=== PATIENT | male | born 1965 | race Caucasian/White ===

== ENCOUNTER 2020-05-31 07:18 | Outpatient (CLI) | payer MEDICARE, SELFPAY ==
[2020-05-31 08:01] LABS: Cholesterol 227 mg/dL (0-200); HDL Direct 48 mg/dL; Triglycerides 457 mg/dL (<150)
[2020-05-31 08:12] LABS: LDL Cholesterol Direct 100 mg/dL
== END 2020-05-31 07:19 | disposition home or self-care (01) ==
PROVIDERS: PCP Family Medicine
DX: E78.5 Hyperlipidemia, unspecified (principal)
CPT/HCPCS: 36415; 80061

== ENCOUNTER 2020-10-29 11:50 | Outpatient (CLI) | payer MEDICARE, SELFPAY ==
--- NOTE | ~2020-10-29 | XR_ITS ---
EXAMINATION: XR chest 2V DATE: 10/29/2020 12:43 INDICATION: Congestive heart failure. TECHNIQUE: Frontal and lateral views of the chest were obtained. COMPARISON: Chest 2 views 12/13/2016, CT abdomen and pelvis 06/10/2016 FINDINGS: There is mild scarring at the lung apices. No pneumonia, pleural effusion, or pneumothorax. The heart size is normal. There is a left chest pacer/defibrillator with leads in right atrium, righ t ventricle, and coronary sinus. There is an old healed left rib fracture. IMPRESSION: 1. Mild scarring at the lung apices. Reviewed, dictated and finalized at location B. 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
[2020-10-29 12:43] LABS: Basophils Absolute Auto 0.1 K/mm3 (0.0-0.1); Basophils Percent Auto 0.5 % (0.2-1.2); Eosinophils Absolute Auto 0.4 K/mm3 (0-0.3); Hematocrit 41.1 % (42.0-52.0); Hemoglobin 14.2 g/dL (14.0-18.0); Immature Granulocyte Absolute 0.05 K/mm3 (0.00-0.031); Immature Granulocyte Percent A 0.5 % (0-0.5); Lymphocytes Absolute Auto 2.15 K/mm3 (0.9-3.2); Lymphocytes Percent Auto 19.4 % (18.3-44.2); Mean Corpuscular HGB Conc 34.5 g/dl (32-36); Mean Corpuscular Hemoglobin 33.2 pg (26-34); Mean Platelet Volume 10.2 fl (7.4-10.4); Monocytes Absolute Auto 0.7 K/mm3 (0.1-0.6); Monocytes Percent Auto 6.3 % (2.6-8.5); Neutrophils Absolute Auto 7.7 K/mm3 (1.3-6.7); Neutrophils Percent Auto 69.3 % (45.5-73.1); Platelet Count Result 289 k/mm3 (150-375); Red Blood Count 4.28 M/mm3 (4.6-6.20); White Blood Count 11.1 K/mm3 (4.5-10.0)
[2020-10-29 12:45] LABS: Add Urine Microscopic? NO; Appearance Urine Clear (Clear); Bilirubin Urine Negative (Negative); Blood Urine Negative (Negative); Color Urine Yellow (Yellow); Glucose Urine UA Negative (Negative); Ketones Urine Negative (Negative); Leukocyte Esterase Ur Negative LEU/UL (Negative); Nitrate Urine Negative (Negative); Protein Urine Negative (Negative); Specific Grav Ur 1.019 (1.001-1.035); Urobilinogen Urine Negative mg/dL (<2.0)
[2020-10-29 12:53] LABS: INR 0.8; Partial Thromboplastin Time 24.6 SECONDS (22.3-36.8); Prothrombin Time 12.1 Seconds (11.1-14.7)
[2020-10-29 13:08] LABS: Alanine Aminotransferase 26 U/L (4-50); Albumin Level 3.9 g/dL (3.5-5.1); Alkaline Phosphatase 62 U/L (38-126); Anion Gap 7 mmol/L (8-16); Aspartate Amino Transferase 30 U/L (17-59); Bilirubin,Total 0.3 mg/dL (0.2-1.3); Blood Urea Nitrogen 13 mg/dL (9-20); Calcium 9.3 mg/dL (8.4-10.2); Carbon Dioxide 27 mmol/L (22-30); Chloride 102 mmol/L (98-107); Estimated Glomerular Filt Rate > 60; Glucose 109 mg/dL (75-110); Potassium 4.7 mmol/L (3.4-5.0); Sodium 136 mmol/L (137-145)
== END 2020-10-29 11:51 | disposition home or self-care (01) ==
PROVIDERS: PCP Family Medicine
DX: I42.9 Cardiomyopathy, unspecified (principal); I50.9 Heart failure, unspecified; Z95.810 Presence of automatic (implantable) cardiac defibrillator; E78.5 Hyperlipidemia, unspecified; R53.83 Other fatigue; K64.9 Unspecified hemorrhoids; R06.02 Shortness of breath; F17.200 Nicotine dependence, unspecified, uncomplicated
CPT/HCPCS: 36415; 71046; 80053; 81003; 85025; 85610; 85730

== ENCOUNTER 2020-10-31 08:38 | Outpatient (CLI) | payer MEDICARE, SELFPAY ==
--- NOTE | 2020-10-31 | ECHO_ITS ---
Patient Info Name: Iona Jackson Age: 55 years : 1965 Gender: Male Ht: 69 in Wt: 195 lbs BSA: 2.10 m2 HR: 70 bpm BP: 116 / 69 mmHg Heart Rhythm: Sinus Rhythm Exam Date: 10/31/2020 9:11 AM Exam Location: [facility] Patient Status: Outpatient Admit Date: 10/31/2020 Staff Ordering Physician: PHYSICIAN NOT ON STAFF, NONSTAFF [employer] Staff: Wilfredo Carpio, BRI, RT Attending Provider: PHYSICIAN NOT ON STAFF, NONSTAFF Exam Type: CA echo doppler color flow Study Info Indications I50.9 - Heart failure, unspecified Complete two-dimensional, color flow and Doppler transthoracic echocardiogram is performed. Strain analysis performed. Summary 1. Complete two-dimensional, color flow and Doppler transthoracic echocardiogram is performed. 2. Normal left ventricular systolic function, with no segmental wall motion abnormalities. Estimated ejection fraction visually is 55-60%. There is mild concentric left ventricular hypertrophy and grade 2 diastolic dysfunction present. Global longitudinal strain was mildly diminished at -15% suggesting a degree of systolic dysfunction. 3. Probable pacemaker in right ventricle. In addition there is a calcified structure, probably a calcified moderator band, in the right ventricle which apparently has previously been noted. 4. No significant valve disease. 5. Normal sinus rhythm. Left Ventricle Left ventricular chamber dimension is normal. Left ventricular systolic function is normal, estimated at 55-60%. There is mildly increased left ventricular wall thickness. Left ventricular septal wall motion is normal. The left ventricular diastolic function is grade II diastolic dysfunction. Global longitudinal strain is mildly elevated at 15 %. Right Ventricle Right ventricular chamber dimension is normal. Right ventricular systolic function is normal. Linear artifact in right ventricle suggestive of catheter(s), pacemaker lead(s), or ICD lead(s). Left Atria Left atrial chamber dimension is normal. Right Atria Right atrial chamber dimension is normal. Aortic Valve The aortic valve is trileaflet. There is no aortic valve sclerosis. There is no aortic valve stenosis. There is no aortic valve regurgitation. Pulmonic Valve The pulmonic valve is normal. There is no pulmonic valve stenosis. There is no pulmonic regurgitation. Mitral Valve The mitral valve has normal leaflets. There is no mitral valve stenosis. There is trace mitral valve regurgitation. Tricuspid Valve The tricuspid valve leaflets are normal. There is no significant tricuspid valve stenosis. There is trace tricuspid valve regurgitation. No pulmonary hypertension, estimated pulmonary arterial systolic pressure is 28 mmHg. Pericardium/Pleural The pericardium appears normal. There is no pericardial effusion. Inferior Vena Cava Normal inferior vena cava with >50% collapse upon inspiration consistent with Empty right atrial pressure, 5 mmHg. Aorta The aortic root size at the sinus of Valsalva is normal. The prox ascending aorta size is normal. Left Ventricular Outflow Tract Name Value Normal LVOT 2D LVOT Diameter 2.0 cm LVOT Doppler ---------
== END 2020-10-31 08:39 | disposition home or self-care (01) ==
LOC: ANHCARD 08:45
PROVIDERS: PCP Family Medicine
DX: I50.9 Heart failure, unspecified (principal); I42.9 Cardiomyopathy, unspecified
CPT/HCPCS: 93306

== ENCOUNTER 2021-01-13 17:37 | Outpatient (CLI) | payer MEDICARE, SELFPAY ==
--- NOTE | ~2021-01-13 | XR_ITS ---
EXAMINATION: XR chest 2V DATE: 01/13/2021 18:02 INDICATION: Shortness of breath. TECHNIQUE: Frontal and lateral views of the chest were obtained. COMPARISON: Chest 2 views 10/29/2020, CT abdomen and pelvis 06/10/2016 FINDINGS: There is mild scarring at the lung apices. No pleural effusion or pneumothorax. The heart s ize is normal. There is a left chest pacer with leads in right atrium, right ventricle, and coronary sinus. There is an old healed left rib fracture. IMPRESSION: 1. Mild scarring at the lung apices. Reviewed, dictated and finalized at location A. [employer]ER [employer]ATING
== END 2021-01-13 17:38 | disposition home or self-care (01) ==
LOC: ANHIMG 17:50
PROVIDERS: PCP Family Medicine
DX: I42.9 Cardiomyopathy, unspecified (principal); Z95.810 Presence of automatic (implantable) cardiac defibrillator
CPT/HCPCS: 71046

== ENCOUNTER 2021-03-19 14:34 | Outpatient (CLI) | payer MEDICARE, SELFPAY ==
--- NOTE | ~2021-03-19 | CT_ITS ---
EXAMINATION: CT ankle RT wo con DATE: 03/19/2021 14:59 INDICATION: Right ankle arthrosis presenting with medial right ankle pain TECHNIQUE: High resolution computed tomography (CT) of the right ankle was performed without intraven ous contrast. Additional sagittal and coronal reconstructions were performed. Automated exposure cont rol and iterative reconstruction technique were employed. The dose-length product was 304.05 mGy-cm. COMPARISON: 09/24/2015 FINDINGS: Old healed fractures of the medial and lateral malleoli with fixation screw at the medial malleolus a nd residual lucent screw tracks at the lateral malleolus. There is osseous fusion between the distal tibia and distal fibula in the region of the anterior inferior tibiofibular ligaments. No acute fract ure. Interval progression of severe tibiotalar osteoarthritis with extensive cartilage loss resulting in severe joint space narrowing with emplaces essentially [id number] apposition anteromedially and with prominent marginal osteophytes. Mild osteoarthritis at multiple joints in the mid and hindfoot relatively sparing the subtalar joint. Subarticular cystic change at both sides of the articulation b etween the anterior process of the calcaneus and the navicula. There is prominent fusiform thickening of the tibialis posterior tendon consistent with tendinopathy. There is linear extension of a region of central decreased attenuation within the tendon suggesting partial tear. No evident joint effusio ns. Small amount of heterotopic ossification along the anterior capsule of the tibiotalar joint. IMPRESSION: 1. Severe tibiotalar osteoarthritis likely secondary to old healed medial and lateral malleolar fract ures and ankylosis across the distal tibia and fibula. 2. Tibialis posterior tendinopathy with longitudinal extension of central decreased attenuation sugge sting partial tear. Reviewed, dictated and finalized at location A. IMPRESSION: 1. Severe tibiotalar osteoarthritis likely secondary to old healed medial and l ateral malleolar fractures and ankylosis across the distal tibia and fibula. 2. Tibialis posterior tendinopathy with longitudinal extension of central decre ased attenuation suggesting partial tear.
== END 2021-03-19 14:35 | disposition home or self-care (01) ==
PROVIDERS: PCP Family Medicine; Visit Provider Podiatrist Foot & Ankle Surgery
DX: M19.071 Primary osteoarthritis, right ankle and foot (principal); M76.821 Posterior tibial tendinitis, right leg
CPT/HCPCS: 73700

== ENCOUNTER → 2021-04-01 01:05 | Outpatient (CLI) | payer MEDICARE, SELFPAY ==
[2021-04-01 18:55] LABS: SARS-CoV-2 RNA PCR Negative
== END ==
PROVIDERS: PCP Family Medicine; Visit Provider Podiatrist Foot & Ankle Surgery
DX: Z01.812 Encounter for preprocedural laboratory examination (principal); Z20.822 Contact with and (suspected) exposure to COVID-19
CPT/HCPCS: C9803; U0003; U0005

== ENCOUNTER 2021-04-01 08:08 | Outpatient (CLI) | payer MEDICARE, SELFPAY ==
--- NOTE | 2021-04-01 08:45 | ECG_ITS ---
Measurements Intervals [place] Rate: 75 P: 16 ID: 174 QRS: 5 QRSD: 134 T: 68 QT: 405 QTc: 455 Interpretive Statements ATRIAL SENSE- ELECTRONIC VENTRICULAR PACEMAKER BASELINE ARTIFACT- I, II, III, AVR, AVL, AVF NO FURTHER INTERPRETATION IS POSSIBLE ATYPICAL ECG Electronically Signed On 04-01-2021 8:50:36 CDT by Jermain Madrid D.O.
[2021-04-01 09:34] LABS: Anion Gap 4 mmol/L (8-16); Blood Urea Nitrogen 15 mg/dL (9-20); Calcium 9.9 mg/dL (8.4-10.2); Carbon Dioxide 29 mmol/L (22-30); Chloride 102 mmol/L (98-107); Estimated Glomerular Filt Rate > 60; Glucose 105 mg/dL (75-110); Potassium 4.2 mmol/L (3.4-5.0); Sodium 135 mmol/L (137-145)
== END 2021-04-01 08:09 | disposition home or self-care (01) ==
LOC: ANHSURGERY 08:12
PROVIDERS: Anesthesiology; PCP Family Medicine; Visit Provider Podiatrist Foot & Ankle Surgery
DX: Z01.818 Encounter for other preprocedural examination (principal); Z51.81 Encounter for therapeutic drug level monitoring; Z79.899 Other long term (current) drug therapy; E78.2 Mixed hyperlipidemia; F17.210 Nicotine dependence, cigarettes, uncomplicated
CPT/HCPCS: 36415; 80048; 93005

== ENCOUNTER 2021-04-04 05:50 | Day surgery (SDC) | payer MEDICARE, MEDICAID, SELFPAY ==
[2021-03-26 14:06] VITALS: BMI 27.6
--- NOTE | 2021-04-03 12:04 | WPDANESEPPF ---
Anes - Initial Pre Proc Eval Procedure: Operation Date: 04/04/21 10:30 Proposed Procedures p Removal Hardware Right Ankle - Elier Ayala JR, MD Date/Time: 04/03/21 12:04 Surgeon: Elier Ayala JR, MD Pre Op Diagnosis: painful hardware right ankle Patient Data Age: 55 Gender: M Height: 1.77 m Weight: 86 kg Allergies Allergy/AdvReac Type Severity Reaction Status Date / Time No Known Allergies Allergy Unknown Verified 04/04/21 08:53 Home Medications Medication Instructions Recorded Confirmed Type fexofenadine 180 mg tablet 180 mg PO DAILY 11/19/19 04/04/21 History furosemide 20 mg tablet 20 mg PO EVERY OTHER DAY 11/19/19 04/04/21 History spironolactone 25 mg tablet 25 mg PO DAILY 11/19/19 04/04/21 History naloxone 4 mg/actuation nasal spray 4 mg NASAL Q2M PRN #2 each 04/29/20 04/04/21 Rx hydrocodone 10 mg-acetaminophen 1 tablet PO Q8H PRN #90 tablet 03/13/21 04/04/21 Rx 325 mg tablet alprazolam 1 mg tablet 1 mg PO TID PRN #90 tablet 03/21/21 04/04/21 Rx aspirin [Adult Aspirin] 81 mg PO DAILY 03/26/21 04/04/21 History atorvastatin 80 mg PO HS 03/26/21 04/04/21 History varenicline 0.5 mg (11)-1 mg (42) See Rx Instructions PO PER PKG DIR 03/31/21 Rx tablets in a dose pack #53 ea Patient hx anesthesia problems: none Family hx anesthesia problems: none PMFSH Past Medical History Medical History (Updated 04/03/21 @ 12:05 by David Fields DO) Anemia Anxiety disorder, unspecified BMI 28.0-28.9,adult BMI 29.0-29.9,adult Cardiomyopathy CHF (congestive heart failure) Deviated septum Idiopathic gout Mixed hyperlipidemia Osteoarthritis of ankle, right Pacemaker Tobacco abuse Surgical History Surgical History (Updated 04/03/21 @ 12:05 by David Fields DO) History of appendectomy Social History Social History Smoking packs per day: 1 Smoking cigarettes per day: 20.0 Years smoked: 40 Smoking pack-years: 40.00 Smoking status: Current every day smoker Tobacco type: cigarettes Alcohol intake: current Drinks per week: 4 Substance use: never Substance use type: does not use Living arrangements: with family Spiritual care concerns: No Anes - Eval Final PreProcedure Day of Procedure 04/03/21 12:04 Patient weight: overweight Heart: regular rate and rhythm Lungs: clear to auscultation and normal air movement Airway: Mallampati scale class II Neurological: alert and oriented Last oral intake: >/= 8 hours ASA classification: III Emergent: no Anesthetic plan: proceed Anesthesia type and monitoring: general GIVS and standard monitoring Informed Consent: The patient's anesthetic plan and its attendant risks and benefits were discussed with the patient/family/POA. Questions were solicited and answers provided to the satisfaction of the patient/family/POA.
--- NOTE | ~2021-04-04 | XR_ITS ---
EXAMINATION: XR surgery orthopedic DATE: 04/04/2021 12:21 INDICATION: Right ankle arthrosis presenting for orthopedic instrumentation removal and cortisone inj ection. TECHNIQUE: 4 fluoroscopic images of the right ankle were obtained during procedure performed by Dr. Leidy prescott. Radiologist was not present for the imaging or procedure. The amount of fluoroscopy time use d during this procedure was 0.5 minutes. COMPARISON: CT dated 03/19/2021 FINDINGS: Initial image redemonstrates old healed fractures of the distal right tibia and fibula with lag screw at the medial malleolus. The tip of a forceps likely for marking projects over the head of the screw . Severe tibiotalar osteoarthritis. Subsequent images demonstrate first removal of the screw and subs equently a needle advanced via anterior approach into the tibiotalar joint space for reported cortiso ne injection. There appears to be interval widening of the joint space on the final image likely due to the injection. IMPRESSION: 1. Fluoroscopy utilized during removal of a medial malleolar lag screw fixation and for reported tibi otalar joint cortisone injection. See procedure note for further detail. Reviewed, dictated and finalized at location A. IMPRESSION: 1. Fluoroscopy utilized during removal of a medial malleolar lag screw fixation and for reported tibiotalar joint cortisone injection. See procedure note for further detail.
--- NOTE | 2021-04-04 07:23 | WPDHPUPDATE1 ---
History and Physical Update Update Date/Time: 04/04/21 07:23 History and Physical has been reviewed, including an updated exam of the patient. There are NO changes in the patient's condition. Risks, benefits, and alternatives have been discussed and questions answered. Patient agrees to proceed with procedure.
[2021-04-04] MEDS: LACTATED RINGERS 1,000 ML 30 ML IV CONT (09:25)
[2021-04-04 09:36] VITALS: BP 129/68; PULSE 83; TEMP 36.9; O2SAT 100
[2021-04-04] MEDS: ceFAZolin 2 GM/D5W 50 ML 2 GM/50 ML BAG IVPB (11:33)
[2021-04-04] MEDS: LIDOCAINE HCL 2% PF INJ 5 ML VIAL 10 ML INFILTRATE (12:00)
[2021-04-04] MEDS: BUPIVACAINE HCL 0.5% PF 30 ML VIAL INFILTRATE (12:01)
[2021-04-04] MEDS: TRIAMCINOLONE ACET INJ 40 MG/ML VIAL IM (12:04)
--- NOTE | 2021-04-04 12:09 | SUR.OPER ---
PT REQUESTED TO TAKE SCREW HOME. APPROVED REQUEST. SENDING BUSINESS ETHICS PROFESSOR TO CENTRAL PROCESSING TO BE STERILIZED FROM ROOM BY MUNA ATWOOD.
[2021-04-04 12:21] VITALS: BP 156/83; PULSE 75; RESP 18; O2SAT 99
--- NOTE | 2021-04-04 12:41 | PM.PROC ---
Procedure Note - Detailed Date of procedure: 04/04/21 Pre-op diagnosis: painful hardware right ankle 1. Painful hardware right ankle 2. Painful arthritis right ankle joint Post-op diagnosis: same Procedure performed: 1. Removal of deep orthopedic hardware right ankle 2. Fluoroscopic guided cortisone injection right ankle Anesthesia: MAC and local Surgeon: Elier Ayala JR, DPM Estimated blood loss (mL): 1 Drains: No Packing: No Pathology: none sent Complications: No immediate complications Condition: stable Disposition: same day Findings: Under mild sedation, the patient was brought in to the operating room, placed on the operating table in the supine position. A pneumatic calf tourniquet was placed about the patient's right leg. Following monitored anesthesia care, local anesthesia was obtained about the foot utilizing 20 mL of a 1:1 mixture of 2% Lidocaine plain and 0.5% Marcaine plain, just proximal to the medial malleolus. The foot was then scrubbed, prepped, and draped in the usual aseptic manner. An Esmarch bandage was then used to exsanguinate the patient's foot and the pneumatic calf tourniquet was then inflated. An incision was made along the medial aspect of the distal tibial just proximal to the tip of the medial malleolus. Fluoroscopy was used to identify the screw head. Dissection was continued to the subcutaneous tissues all bleeders were cauterized as necessary. A periosteal incision was made and the screw head was visualized. It was noted to be a cruciform head screw, it was removed in toto and placed on the back table. Fluoroscopy was used to prove complete screw removal. The wound site was flushed with sterile saline. Next, the skin was reapproximated and coapted utilizing 4-0 Prolene in a Horizontal mattress suture fashion technique. Next, I utilized live fluoroscopy to guide a 25 gauge needle along the medial aspect of the right ankle joint, just medial to the tibialis anterior tendon. Once I was able to enter the joint, I administered an intraarticular cortisone injection consisting of 2cc of Kenalog 40 and 1cc of Dexamethasone Phosphate 4mg/mL. I did take and print a fluoroscopic image to demonstrate the position of the needle within the ankle joint. Upon completion of the procedure, the incision was dressed with Adaptic, 4x4s, Kerlix, and Coban. The pneumatic calf tourniquet was then deflated and a prompt hyperemic response was noted to all digits of the foot. The surgical shoe was then applied. The patient did very well with the procedure and the anesthesia. He was transferred to the recovery room with vital signs stable and vascular status intact to all toes of the foot. Following a period of postoperative monitoring, the patient will be discharged home on the following written and oral postoperative instructions: 1. The patient should keep the dressing clean, dry, and intact. Use a cast protector bag with showers. 2. The patient will be protected weightbearing with CAM boot. 3. Patient should ice and elevate the affected lower extremity while at rest. 4. The patient is to contact Dr. Ayala for all postop care and if any problems arise. 5. Prescriptions were written for Percocet 5/325 dispensed 40 to be taken 1 p.o. q.4-6 hours as needed for severe pain.
[2021-04-04 12:50] VITALS: BP 155/93; PULSE 76; O2SAT 95
[2021-04-04 13:20] VITALS: BP 153/67; PULSE 70
[2021-04-04] MEDS: oxyCODONE HCL (*CRX) 5 MG TAB IR PO (13:23)
[2021-04-04 13:40] VITALS: BP 170/86; PULSE 76
--- NOTE | 2021-04-04 14:43 | SUR.PHASEII ---
Patient had an ankle brace he purchased off [employer]. He said it wouldn't fit over the dressing so he wasn't wearing it. RN encouraged patient to wear a CAM boot like stated in the discharge instructions.
== END 2021-04-04 13:53 | disposition home or self-care (01) ==
PROVIDERS: PCP Family Medicine; Visit Provider Podiatrist Foot & Ankle Surgery
PROC: (CPT 20680; principal; 2021-04-04 10:30)
DX: T84.84XA Pain due to internal orthopedic prosthetic devices, implants and grafts, initial encounter (principal); M19.071 Primary osteoarthritis, right ankle and foot; Z87.81 Personal history of (healed) traumatic fracture; F17.210 Nicotine dependence, cigarettes, uncomplicated; I42.9 Cardiomyopathy, unspecified; I50.9 Heart failure, unspecified; E78.2 Mixed hyperlipidemia; M10.00 Idiopathic gout, unspecified site; Z95.0 Presence of cardiac pacemaker; D64.9 Anemia, unspecified; D41.9 Neoplasm of uncertain behavior of unspecified urinary organ; Z79.82 Long term (current) use of aspirin; Y83.8 Other surgical procedures as the cause of abnormal reaction of the patient, or of later complication, without mention of misadventure at the time of the procedure
CPT/HCPCS: 20680; 20605; 36415; 80048; 93005; A9270; C9803; J0690; J1100; J2250; J2405; J2704; J3010; J3301; J7120; U0003; U0005

== ENCOUNTER 2022-01-16 09:39 | Outpatient (CLI) | payer MEDICARE, MEDICAID, SELFPAY ==
--- NOTE | 2022-01-16 | ECHO_ITS ---
Patient Info Name: Iona Jackson Age: 56 years : 1965 Gender: Male Ht: 70 in Wt: 197 lbs BSA: 2.12 m2 HR: 73 bpm BP: 135 / 80 mmHg Technical Quality: Fair Exam Date: 01/16/2022 9:57 AM Exam Location: [facility] Patient Status: Outpatient Admit Date: 01/16/2022 Staff Ordering Physician: JACOBO BECERRA Armored Vehicle Officer: Alisa Wei RDCS Attending Provider: JACOBO BECERRA Exam Type: CA echo doppler color flow Study Info Indications F17.200 - Nicotine dependence, unspecified, uncomplicated I25.10 - Atherosclerotic heart disease of [place] coronary artery without angina pectoris I50.9 - Heart failure, unspecified E78.5 - Hyperlipidemia, unspecified I42.9 - Cardiomyopathy, unspecified R53.83 - Other fatigue R06.02 - Shortness of breath Complete two-dimensional, color flow and Doppler transthoracic echocardiogram is performed. Summary 1. Complete two-dimensional, color flow and Doppler transthoracic echocardiogram is performed. 2. Left ventricular chamber dimension is normal. 3. Left ventricular systolic function is normal, estimated at 60-65%. 4. There is mildly increased left ventricular wall thickness. 5. The left ventricular diastolic function is normal. 6. Global longitudinal strain is abnormal at -11.4%. 7. No pulmonary hypertension, estimated pulmonary arterial systolic pressure is 32 mmHg. Left Ventricle Tissue doppler is not performed. Global longitudinal strain is abnormal at -11.4%. Left ventricular chamber dimension is normal. Left ventricular systolic function is normal, estimated at 60-65%. There is mildly increased left ventricular wall thickness. The left ventricular diastolic function is normal. Right Ventricle Right ventricular chamber dimension is normal. Right ventricular systolic function is normal. Left Atria Left atrial chamber dimension is normal. Right Atria Right atrial chamber dimension is normal. Aortic Valve The aortic valve is trileaflet. There is no aortic valve stenosis. There is no aortic valve regurgitation. Pulmonic Valve There is no pulmonic regurgitation. Mitral Valve There is no mitral valve stenosis. There is no mitral valve regurgitation. Tricuspid Valve There is no tricuspid valve regurgitation. No pulmonary hypertension, estimated pulmonary arterial systolic pressure is 32 mmHg. Pericardium/Pleural There is no pericardial effusion. Inferior Vena Cava Normal inferior vena cava with >50% collapse upon inspiration consistent with normal right atrial pressure, 5 mmHg. Aorta The aortic root size at the sinus of Valsalva is normal. Left Ventricular Outflow Tract Name Value Normal LVOT 2D LVOT Diameter 2.0 cm LVOT Doppler LVOT Peak Gradient 4 mmHg LVOT Mean Gradient 2 mmHg LVOT VTI 20 cm LVOT VTI/AV VTI Ratio 0.8 LVOT Stroke Volume 64 ml LVOT CO 4.4 l/min LVOT CI 2.1 l/min/m2
== END 2022-01-16 09:40 | disposition home or self-care (01) ==
PROVIDERS: PCP Family Medicine
DX: E78.5 Hyperlipidemia, unspecified (principal); R53.83 Other fatigue; K64.9 Unspecified hemorrhoids; R06.02 Shortness of breath; F17.200 Nicotine dependence, unspecified, uncomplicated; Z95.810 Presence of automatic (implantable) cardiac defibrillator; I25.10 Atherosclerotic heart disease of native coronary artery without angina pectoris; I42.9 Cardiomyopathy, unspecified; I50.9 Heart failure, unspecified
CPT/HCPCS: 93306

== ENCOUNTER 2022-02-02 10:13 | Outpatient (CLI) | payer MEDICARE, MEDICAID, SELFPAY ==
--- NOTE | ~2022-02-02 | XR_ITS ---
EXAMINATION: XR wrist RT min 3V DATE: 02/02/2022 10:28 INDICATION: Right wrist injury and pain. TECHNIQUE: 4 views of right wrist were obtained. COMPARISON: Right hand radiographs 08/02/2004 FINDINGS: Bone alignment is normal. No fracture. There is mild osteoarthrosis of distal radioulnar taz int, triscaphe joint, and first carpometacarpal joint. There is a 1 mm loose body dorsal to the carpu s. IMPRESSION: 1. Mild polyarticular osteoarthritis. 2. Small loose body dorsal to the carpus. Reviewed, dictated and finalized at location A.
== END 2022-02-02 10:14 | disposition home or self-care (01) ==
PROVIDERS: PCP Family Medicine; Visit Provider Nurse Practitioner Family
DX: S69.90XA Unspecified injury of unspecified wrist, hand and finger(s), initial encounter (principal); X58.XXXA Exposure to other specified factors, initial encounter; M19.031 Primary osteoarthritis, right wrist; M24.031 Loose body in right wrist
CPT/HCPCS: 73110

== ENCOUNTER 2022-03-09 06:40 | Outpatient (CLI) | payer MEDICARE, SELFPAY ==
[2022-03-09 07:59] LABS: Basophils Absolute Auto 0.1 K/mm3 (0.0-0.1); Eosinophils Absolute Auto 0.7 K/mm3 (0-0.3); Eosinophils Percent Auto 6.8 % (0-4.4); Hematocrit 44.5 % (42.0-52.0); Hemoglobin 14.7 g/dL (14.0-18.0); Immature Granulocyte Absolute 0.04 K/mm3 (0.00-0.031); Immature Granulocyte Percent A 0.4 % (0-0.5); Lymphocytes Absolute Auto 2.44 K/mm3 (0.9-3.2); Lymphocytes Percent Auto 23.3 % (18.3-44.2); Mean Corpuscular Hemoglobin 32.7 pg (26-34); Mean Corpuscular Volume 98.9 fl (80-100); Mean Platelet Volume 11.3 fl (7.4-10.4); Monocytes Absolute Auto 0.9 K/mm3 (0.1-0.6); Neutrophils Absolute Auto 6.2 K/mm3 (1.3-6.7); Neutrophils Percent Auto 59.5 % (45.5-73.1); Platelet Count Result 261 k/mm3 (150-375); Red Cell Distribution Width 13.5 % (11.5-14.5); White Blood Count 10.5 K/mm3 (4.5-10.0)
[2022-03-09 08:13] LABS: Iron 110 ug/dL (49-181)
[2022-03-09 08:18] LABS: Alanine Aminotransferase 26 U/L (4-50); Albumin Level 4.2 g/dL (3.5-5.1); Alkaline Phosphatase 80 U/L (38-126); Anion Gap 5 mmol/L (8-16); Aspartate Amino Transferase 28 U/L (17-59); Bilirubin,Total 0.2 mg/dL (0.2-1.3); Blood Urea Nitrogen 23 mg/dL (9-20); Calcium 8.9 mg/dL (8.4-10.2); Carbon Dioxide 29 mmol/L (22-30); Chloride 101 mmol/L (98-107); Cholesterol 284 mg/dL (0-200); Estimated Glomerular Filt Rate > 60; Glucose 116 mg/dL (65-110); HDL Direct 44 mg/dL; Potassium 4.4 mmol/L (3.4-5.0); Sodium 135 mmol/L (137-145); Uric Acid 6.1 mg/dL (3.5-8.5)
[2022-03-09 08:39] LABS: Prostate Specific Antigen 1.6 ng/mL (< OR = 4.0)
[2022-03-09 08:41] LABS: Percent Iron Saturation 34 % (20-50)
[2022-03-09 08:50] LABS: LDL Cholesterol Direct 100 mg/dL
[2022-03-09 08:56] LABS: Triglycerides 727 mg/dL (<150)
== END 2022-03-09 06:41 | disposition home or self-care (01) ==
LOC: ANHLAB 06:41
PROVIDERS: PCP Family Medicine; Visit Provider Family Medicine
DX: Z12.5 Encounter for screening for malignant neoplasm of prostate (principal); D64.9 Anemia, unspecified; M1A.00X0 Idiopathic chronic gout, unspecified site, without tophus (tophi); Z13.220 Encounter for screening for lipoid disorders; E78.2 Mixed hyperlipidemia; E55.9 Vitamin D deficiency, unspecified; N28.9 Disorder of kidney and ureter, unspecified; I42.8 Other cardiomyopathies
CPT/HCPCS: 36415; 80048; 80061; 80076; 82306; 83540; 83550; 84153; 84443; 84550; 85025; G0103

== ENCOUNTER 2022-08-10 08:13 | Outpatient (CLI) | payer MEDICARE, SELFPAY ==
[2022-08-10 08:56] LABS: Alanine Aminotransferase 26 U/L (6-50); Albumin Level 4.3 g/dL (3.5-5.1); Alkaline Phosphatase 68 U/L (38-126); Anion Gap 15 mmol/L (8-16); Aspartate Amino Transferase 23 U/L (17-59); Bilirubin,Total 0.5 mg/dL (0.2-1.3); Blood Urea Nitrogen 13 mg/dL (9-20); Carbon Dioxide 23 mmol/L (22-30); Chloride 102 mmol/L (98-107); Cholesterol 236 mg/dL (0-200); Estimated Glomerular Filt Rate > 60; Glucose 119 mg/dL (65-110); HDL Direct 39 mg/dL; Potassium 3.9 mmol/L (3.4-5.0); Sodium 140 mmol/L (137-145); Triglycerides 249 mg/dL (<150)
[2022-08-10 08:57] LABS: Hemoglobin A1C 5.9 % (<5.7)
[2022-08-10 09:03] LABS: NT Pro B Type Natriuretic Pept 54 pg/mL (5-100)
[2022-08-10 09:07] LABS: LDL Cholesterol Direct 113 mg/dL
[2022-08-12 11:48] LABS: CRP, High Sensitivity 5.7 mg/L (***)
== END 2022-08-10 08:14 | disposition home or self-care (01) ==
PROVIDERS: PCP Family Medicine
DX: E78.5 Hyperlipidemia, unspecified (principal); R53.83 Other fatigue; K64.9 Unspecified hemorrhoids; R06.02 Shortness of breath; F17.200 Nicotine dependence, unspecified, uncomplicated; Z95.810 Presence of automatic (implantable) cardiac defibrillator; I25.10 Atherosclerotic heart disease of native coronary artery without angina pectoris; I42.9 Cardiomyopathy, unspecified; I50.9 Heart failure, unspecified; R73.09 Other abnormal glucose
CPT/HCPCS: 36415; 80053; 80061; 83036; 83880; 86141

== ENCOUNTER 2023-02-07 19:51 | Emergency (ER) | payer MEDICARE, MEDICAID, SELFPAY ==
[2023-02-07] VITALS (10 sets, daily range): BP systolic 102–154; BP diastolic 62–89; PULSE 75–157; RESP 10–20; TEMP 36.3; O2SAT 97–100
--- NOTE | 2023-02-07 19:53 | ECG_ITS ---
Measurements Intervals [place] Rate: 81 P: 61 SD: 174 QRS: 55 QRSD: 144 T: 121 QT: 379 QTc: 442 Interpretive Statements ATRIAL SENSE- ELECTRONIC VENTRICULAR PACEMAKER BASELINE ARTIFACT- I, II, III, AVL, AVF NO FURTHER INTERPRETATION IS POSSIBLE ATYPICAL ECG COMPARED TO ECG 04/01/2021 08:26:08 NO SIGNIFICANT CHANGES Electronically Signed On 02-07-2023 21:32:57 CDT by Jermain Madrid D.O.
[2023-02-07 20:44] LABS: Basophils Absolute Auto 0.1 K/mm3 (0.0-0.1); Basophils Percent Auto 0.6 % (0.2-1.2); Eosinophils Absolute Auto 0.5 K/mm3 (0-0.3); Hematocrit 39.1 % (42.0-52.0); Hemoglobin 13.7 g/dL (14.0-18.0); Immature Granulocyte Absolute 0.04 K/mm3 (0.00-0.031); Immature Granulocyte Percent A 0.3 % (0-0.5); Lymphocytes Absolute Auto 2.74 K/mm3 (0.9-3.2); Lymphocytes Percent Auto 21.9 % (18.3-44.2); Mean Corpuscular Hemoglobin 32.8 pg (26-34); Mean Corpuscular Volume 93.5 fl (80-100); Mean Platelet Volume 9.8 fl (7.4-10.4); Monocytes Absolute Auto 0.9 K/mm3 (0.1-0.6); Monocytes Percent Auto 6.9 % (2.6-8.5); Neutrophils Absolute Auto 8.3 K/mm3 (1.3-6.7); Neutrophils Percent Auto 66.3 % (45.5-73.1); Platelet Count Result 352 k/mm3 (150-375); Red Blood Count 4.18 M/mm3 (4.6-6.20); Red Cell Distribution Width 13.3 % (11.5-14.5); White Blood Count 12.5 K/mm3 (4.5-10.0)
--- NOTE | 2023-02-07 20:47 | ED.ARRPALP ---
HPI - Arrhythmia/Palpitations General Chief Complaint: Arrhythmia/Palpitations Stated Complaint: palpitations Time Seen by Provider: 02/07/23 20:37 History of Present Illness HPI narrative: Patient is a 57-year-old male with a history of lung cancer, cardiomyopathy status post ICD/pacer with recent exchange at another hospital several weeks ago presenting with palpitations. Patient states that he has been having intermittent palpitations for the last several hours. States that he has been checking his pulse and sometimes it is in the 160s. States that when it is high he has some left-sided chest pain and lightheadedness. States that it seems to resolve on its own after about 5 minutes. States that he had his ICD/pacer replaced little over a week ago. He has not called his machine stoppage frequency checker today. No fevers or chills, headache, numbness or weakness, cough, abdominal pain, nausea or vomiting, diarrhea, dysuria, leg swelling. Reports some shortness of breath whenever his heart is racing. Related Data Home Medications Medication Instructions Recorded Confirmed fexofenadine 180 mg tablet 180 mg PO DAILY 11/19/19 01/21/23 spironolactone 25 mg tablet 25 mg PO DAILY 11/19/19 01/21/23 aspirin 81 mg tablet 81 mg PO DAILY 03/26/21 01/21/23 atorvastatin 80 mg tablet 80 mg PO HS 03/26/21 01/21/23 carvedilol 12.5 mg tablet (Coreg) 12.5 mg PO Q12H 08/25/21 01/21/23 lisinopril 10 mg tablet 10 mg PO DAILY 08/25/21 01/21/23 Allergies Allergy/AdvReac Type Severity Reaction Status Date / Time No Known Allergies Allergy Unknown Verified 02/07/23 19:51 Review of Systems Review of Systems: All systems reviewed & are unremarkable except as noted in HPI and below PMFSH Past Medical History Medical History Anemia Anxiety disorder, unspecified BMI 28.0-28.9,adult BMI 29.0-29.9,adult Cardiomyopathy CHF (congestive heart failure) Cough Deviated septum GERD without esophagitis Hoarse voice quality Idiopathic gout Mass of lung Mixed hyperlipidemia Non-small cell cancer of left lung Osteoarthritis of ankle, right Pacemaker Screening for prostate cancer Tobacco abuse Surgical History Surgical History History of appendectomy Social History Social History Social History: pt has quit smoking cigarettes- pt is vaping Smoking packs per day: 1 Smoking cigarettes per day: 20.0 Years smoked: 40 Smoking pack-years: 40.00 Smoking status: Former smoker Smoking end date: 11/23/22 Alcohol intake: current Drinks per week: 4 Substance use: never Substance use type: does not use Living arrangements: with family Spiritual care concerns: No Exam Narrative: GENERAL: Well-appearing, well-nourished, and in no acute distress. HEAD: Normocephalic, atraumatic. EYES: PERRLA and EOMI. ENT: Nares clear, no rhinorrhea or epistaxis. Mucous membranes moist. NECK: Supple. CHEST: Clear to auscultation. No respiratory distress. Healing incision left anterior chest wall where pacer was replaced; no dehiscence or evidence of infection HEART: Patient initially with a heart rate in the 80s, as I entered the room heart rate increased to 160s, regular rhythm, normal pulses ABDOMEN: Soft, nontender, nondistended EXTREMITIES: Normal range of motion. No edema. SKIN: Warm, dry, no rash. NEURO: No focal deficits. Alert and oriented x3. PSYCH: Normal mood and affect. Course Consultations Consultation #1: Spoke with Sharon Jarrell with [facility] who recommends giving oral magnesium and his nightly dose of carvedilol 12.5mg. His pacer was interrogated and shows sinus tachycardia vs junctional tachycardia. No evidence of VT or Vfib. They recommend he call in the morning for close follow-up. Vital Signs Vital signs: Vital Signs Temperature 97.4 F L 02/07/23 20:0
[2023-02-07 20:56] LABS: Alanine Aminotransferase 26 U/L (6-50); Albumin Level 4.1 g/dL (3.5-5.1); Alkaline Phosphatase 71 U/L (38-126); Anion Gap 4 mmol/L (8-16); Aspartate Amino Transferase 28 U/L (17-59); Bilirubin,Total 0.4 mg/dL (0.2-1.3); Blood Urea Nitrogen 17 mg/dL (9-20); Calcium 9.2 mg/dL (8.4-10.2); Carbon Dioxide 27 mmol/L (22-30); Chloride 105 mmol/L (98-107); Estimated CRCL calculation 114 ml/min; Estimated Glomerular Filt Rate > 60; Glucose 105 mg/dL (65-110); Lipase 68 U/L (23-300); Potassium 4.3 mmol/L (3.4-5.0); Prothrombin Time 12.7 Seconds (11.1-14.7); Sodium 136 mmol/L (137-145)
[2023-02-07 20:57] LABS: Partial Thromboplastin Time 25.9 SECONDS (22.3-36.8)
[2023-02-07 21:05] LABS: Troponin I < 0.012 ng/mL (0.000-0.034)
--- NOTE | 2023-02-07 21:05 | ECG_ITS ---
Measurements Intervals [place] Rate: 157 P: -1 DC: 64 QRS: 40 QRSD: 153 T: 165 QT: 329 QTc: 532 Interpretive Statements WIDE COMPLEX TACHYCARDIA, PROBABLY ATRIAL FLUTTER/TACHYCARDIA LEFT BUNDLE BRANCH BLOCK ABNORMAL ECG COMPARED TO ECG 02/07/2023 19:57:31 WIDE COMPLEX TACHYCARDIA NOW PRESENT LEFT BUNDLE-BRANCH BLOCK NOW PRESENT Electronically Signed On 02-08-2023 16:53:33 CDT by Jermain Madrid D.O.
[2023-02-07] MEDS: SODIUM CHLORIDE 0.9% IV 1,000 ML 999 ML IV CONT (21:12)
[2023-02-07 22:30] LABS: Ethanol < 10 mg/dL (<10)
[2023-02-07 22:35] LABS: Magnesium 2.1 mg/dL (1.6-2.3)
[2023-02-07] MEDS: carvediloL 12.5 MG TABLET PO (22:52)
[2023-02-07] MEDS: MAGNESIUM OXIDE 400 MG TABLET PO (22:52)
== END 2023-02-07 23:15 | disposition home or self-care (01) ==
PROVIDERS: Emergency Medicine; Emergency Provider Emergency Medicine; PCP Family Medicine
DX: I47.9 Paroxysmal tachycardia, unspecified (principal); Z95.0 Presence of cardiac pacemaker; D64.9 Anemia, unspecified; F41.9 Anxiety disorder, unspecified; I50.9 Heart failure, unspecified; K21.9 Gastro-esophageal reflux disease without esophagitis; Z79.82 Long term (current) use of aspirin; Z79.899 Other long term (current) drug therapy; E78.2 Mixed hyperlipidemia; I42.9 Cardiomyopathy, unspecified; Z87.891 Personal history of nicotine dependence; Z79.891 Long term (current) use of opiate analgesic
CPT/HCPCS: 36415; 80053; 80307; 83690; 83735; 84484; 85025; 85610; 85730; 93005; 96360; 99283; A9270; J7030

== ENCOUNTER 2023-03-21 18:18 | Emergency (ER) | payer MEDICARE, MEDICAID, SELFPAY ==
--- NOTE | ~2023-03-21 | XR_ITS ---
EXAMINATION: XR wrist LT min 3V DATE: 03/21/2023 18:36 INDICATION: Left wrist pain and swelling, initial encounter TECHNIQUE: Posteroanterior, ulnar deviation, oblique, and lateral views of the left wrist were obtain ed. COMPARISON: None available FINDINGS: There is an acute, traumatic, closed, transverse scaphoid waist fracture. There is minimal adjacent soft tissue swelling. No additional fracture is identified. The joint spaces are normal. IMPRESSION: 1. Acute scaphoid waist fracture. Reviewed, dictated and finalized at location F.
[2023-03-21 18:29] VITALS: BP 164/79; PULSE 92; RESP 18; TEMP 36.4; O2SAT 100
--- NOTE | 2023-03-21 18:59 | ED.UPPEXIN ---
HPI - Extremity Injury (Upper) General Chief Complaint: Extremity Injury, Upper Stated Complaint: . Time Seen by Provider: 03/21/23 18:20 Source: patient Mode of arrival: ambulatory Limitations: no limitations History of Present Illness HPI narrative: 57-year-old male [facility] complains of pain and swelling to the medial aspect of his left wrist after falling this morning at his home. Patient reports that he tripped down 2 steps leading into his TV room and fell onto his left wrist. Patient is currently going through chemo and radiation for lung cancer. Patient takes prescription [place] and reports that he took [place] today after fall occurred. Patient denies hitting his head, loss of conscious, headache, dizziness, blurred vision, nausea, vomiting, numbness, tingling. MD complaint: injury to: left Other Extremity Injury: Left: wrist Handedness: left Place: home Context: fall Associated symptoms: denies other symptoms Related Data Home Medications Medication Instructions Recorded Confirmed fexofenadine 180 mg tablet 180 mg PO DAILY 11/19/19 03/21/23 spironolactone 25 mg tablet 25 mg PO DAILY 11/19/19 03/21/23 aspirin 81 mg tablet 81 mg PO DAILY 03/26/21 03/21/23 atorvastatin 80 mg tablet 80 mg PO HS 03/26/21 03/21/23 carvedilol 12.5 mg tablet (Coreg) 12.5 mg PO Q12H 08/25/21 03/21/23 lisinopril 10 mg tablet 10 mg PO DAILY 08/25/21 03/21/23 Allergies Allergy/AdvReac Type Severity Reaction Status Date / Time No Known Allergies Allergy Unknown Verified 03/21/23 19:00 Review of Systems Constitutional: Constitutional: Denies chills, Denies fatigue, Denies fever(s) and Denies weakness ENT: Denies vertigo, Denies dizziness, Denies nasal congestion and Denies sore throat Respiratory: Respiratory: Denies chest congestion, Denies dyspnea and Denies wheezing Gastrointestinal: Gastrointestinal: Denies diarrhea, Denies nausea and Denies vomiting Musculoskeletal: Comments: Left wrist pain and swelling Integumentary/Breasts: Skin/Breast: Denies erythema and Denies rash Neurologic: Denies headache(s) [facility] Past Medical History Medical History Anemia Anxiety disorder, unspecified BMI 28.0-28.9,adult BMI 29.0-29.9,adult Cardiomyopathy CHF (congestive heart failure) Cough Deviated septum GERD without esophagitis Hoarse voice quality Idiopathic gout Mass of lung Mixed hyperlipidemia Non-small cell cancer of left lung Osteoarthritis of ankle, right Pacemaker Screening for prostate cancer Tobacco abuse Surgical History Surgical History History of appendectomy Social History Social History Social History: pt has quit smoking cigarettes- pt is vaping Smoking packs per day: 1 Smoking cigarettes per day: 20.0 Years smoked: 40 Smoking pack-years: 40.00 Smoking status: Former smoker Smoking end date: 11/23/22 Alcohol intake: current Drinks per week: 4 Substance use: never Substance use type: does not use Living arrangements: with family Spiritual care concerns: No Comments At time of signature, I agree with nursing past medical, surgical, social and family history. There is no relevant family history pertinent to the presenting complaint. Exam Const: General: healthy appearing Nutritional Appearance: well nourished Orientation/consciousness: patient oriented x3 Limitations: no limitations Neck: Neck: normal visual inspection Chest: Chest palpation & inspection: normal inspection of the chest Resp: Effort & Inspection: normal respiratory effort and not labored Auscultation: clear to auscultation bilaterally, no crackles, no rales, no rhonchi and no wheezes Cardio: Rate: regular rate Rhythm: regular rhythm Heart sounds: no murmurs Skin: General skin exam: normal color Rashes: no rashes Wound
== END 2023-03-21 19:44 | disposition home or self-care (01) ==
PROVIDERS: Emergency Provider Nurse Practitioner Family; PCP Family Medicine
DX: S62.002A Unspecified fracture of navicular [scaphoid] bone of left wrist, initial encounter for closed fracture (principal); W10.9XXA Fall (on) (from) unspecified stairs and steps, initial encounter; Z79.82 Long term (current) use of aspirin; C34.90 Malignant neoplasm of unspecified part of unspecified bronchus or lung; Z79.60 Long term (current) use of unspecified immunomodulators and immunosuppressants; I50.9 Heart failure, unspecified; I42.9 Cardiomyopathy, unspecified; K21.9 Gastro-esophageal reflux disease without esophagitis; E78.2 Mixed hyperlipidemia; M19.071 Primary osteoarthritis, right ankle and foot; Z95.0 Presence of cardiac pacemaker; F17.290 Nicotine dependence, other tobacco product, uncomplicated
CPT/HCPCS: 29125; 73110; 99214; A4565; G0463

== ENCOUNTER 2023-11-05 08:25 | Outpatient (CLI) | payer MEDICARE, MEDICAID, SELFPAY ==
--- NOTE | ~2023-11-05 | CT_ITS ---
Non-contrast CT scan of the Abdomen and Pelvis Clinical indication: Abdominal pain Technique: 2.5 mm axial scans were obtained through the abdomen and pelvis without intravenous or or al contrast. Dose reduction technique was used on this scan by utilizing automated exposure control a nd iterative reconstruction technique. The dose-length product (DLP) was 776.26 mGy-cm. Findings: Images through the lung bases reveal small hiatal hernia. 2 mm nonobstructing left renal stone. Right kidney unremarkable. No hydronephrosis. The liver, spleen, pancreas, gallbladder, and adrenals appear normal. There are atherosclerotic calci fications of the aorta. There is no evidence of bowel obstruction. Images through the pelvis were performed. There is no evidence of ascites or lymphadenopathy. Urinary bladder unremarkable. Prostate gland mildly enlarged. Small fat-containing left inguinal hernia pres ent. Impression: 2 mm nonobstructing left renal stone. Small fat-containing left inguinal hernia. Reviewed, dictated and finalized at [facility]. [employer]IC[employer] Impression: 2 mm nonobstructing left renal stone. Small fat-containing left inguinal hernia.
== END 2023-11-05 08:26 | disposition home or self-care (01) ==
LOC: ANHIMG 08:33
PROVIDERS: PCP Family Medicine; Visit Provider Family Medicine
DX: N20.0 Calculus of kidney (principal); K40.90 Unilateral inguinal hernia, without obstruction or gangrene, not specified as recurrent; Z98.890 Other specified postprocedural states; Z87.19 Personal history of other diseases of the digestive system
CPT/HCPCS: 74176

== ENCOUNTER 2023-11-29 15:02 | Emergency (ER) | payer MEDICARE, MEDICAID, SELFPAY ==
[2023-11-29 15:07] VITALS: BP 149/58; PULSE 83; RESP 16; TEMP 36.4; O2SAT 98
--- NOTE | 2023-11-29 15:12 | ED.SKABFB ---
HPI - Skin/Abscess/Foreign Bdy General Chief complaint: Skin/Abscess/Foreign Body Stated complaint: Cut on Back Time Seen by Provider: 11/29/23 15:10 Source: patient Mode of arrival: ambulatory Limitations: no limitations History of Present Illness HPI narrative: Iona is a 58-year-old male patient presenting to the clinic today with complaints of a cut to his mid upper back. He reports that this occurred on Wednesday. States he got cut by a fresh cut 2 x 4. His is been keeping the area clean and been applying Silvadene cream to the affected area. There is mild redness to the wound edges but no induration or erythema. No discharge. Related Data Home Medications Medication Instructions Recorded Confirmed fexofenadine 180 mg tablet 180 mg PO DAILY 11/19/19 11/29/23 aspirin 81 mg tablet 81 mg PO DAILY 03/26/21 11/29/23 atorvastatin 80 mg tablet 80 mg PO HS 03/26/21 11/29/23 carvedilol 12.5 mg tablet (Coreg) 12.5 mg PO Q12H 08/25/21 11/29/23 lisinopril 10 mg tablet 10 mg PO DAILY 08/25/21 11/29/23 nicotine 21 mg/24 hr daily 21 mg transdermal DAILY 11/29/23 11/29/23 transdermal patch Allergies Allergy/AdvReac Type Severity Reaction Status Date / Time No Known Allergies Allergy Unknown Verified 11/29/23 15:06 Review of Systems Review of Systems: Pertinent positives per HPI. Patient denies any fever, chills, rash, headache, visual changes, dizziness, cough, runny nose, sore throat, shortness of breath, chest pain, palpitations, nausea, vomiting, diarrhea, constipation, abdominal pain, or any urinary issues. [facility] Past Medical History Medical History Abdominal pain Anemia Anxiety disorder, unspecified BMI 28.0-28.9,adult BMI 29.0-29.9,adult BMI 30.0-30.9,adult BMI 32.0-32.9,adult Cardiomyopathy CHF (congestive heart failure) Cough Deviated septum GERD without esophagitis Hoarse voice quality Idiopathic gout Left hip pain Left inguinal hernia Lesion of lumbar spine Lesion of pelvic bone Mass of lung Medial epicondylitis, right elbow Mixed hyperlipidemia Non-small cell cancer of left lung Osteoarthritis of ankle, right Pacemaker Port-A-Cath in place Post-traumatic osteoarthritis, right wrist Scaphoid fracture of wrist Screening for prostate cancer Tinea pedis Tobacco abuse Surgical History Surgical History History of appendectomy History of bronchoscopy Status post hernia repair Family History Family History Father Heart disease Mother A-fib Diabetes mellitus Sibling Non-Hodgkin lymphoma Sibling , chf No problems noted. Social History Social History Social History: pt has quit smoking cigarettes- pt is vaping Smoking packs per day: 1 Smoking cigarettes per day: 20.0 Years smoked: 40 Smoking pack-years: 40.00 Smoking status: Former smoker Second hand tobacco smoke exposure: Yes Smoking end date: 11/23/22 Alcohol intake: current Drinks per week: 4 Substance use: never Substance use type: does not use Do You Feel Safe in your Home?: Yes Lack of Transportation: No Lack of Food: Never True Current Housing: I Have Housing Concerned About Future Housing: No Difficulty Paying Gas/Electric Bills: No Difficulty Paying for Meds: No Currently Unemployed: No Education: Trade/Vocational Certificate Difficulty w/ Childcare or Family Care: No Living arrangements: with family Occupation/Education: retired Additional occupation/education comments: [employer] Gender identity (if verbalized by the patient): Male Spiritual care concerns: No Comments At the time of my signature, I reviewed and agree with the nursing past medical, surgical, social, and family history. There
== END 2023-11-29 15:30 | disposition home or self-care (01) ==
PROVIDERS: Emergency Provider Nurse Practitioner Family; PCP Family Medicine
DX: S21.219A Laceration without foreign body of unspecified back wall of thorax without penetration into thoracic cavity, initial encounter (principal); X58.XXXA Exposure to other specified factors, initial encounter; E78.2 Mixed hyperlipidemia; I50.9 Heart failure, unspecified; K21.9 Gastro-esophageal reflux disease without esophagitis; Z85.118 Personal history of other malignant neoplasm of bronchus and lung; M19.071 Primary osteoarthritis, right ankle and foot; Z95.0 Presence of cardiac pacemaker; F17.290 Nicotine dependence, other tobacco product, uncomplicated
CPT/HCPCS: 99213; G0463

== ENCOUNTER 2024-02-28 01:25 | Day surgery (SDC) | payer MEDICARE, MEDICAID, SELFPAY ==
[2024-02-24 11:15] VITALS: BMI 30.1
--- NOTE | 2024-02-24 11:53 | PC.NURSE ---
pt was supposed to have his egd done at [facility] but due to hx of lung ca and bivicd, egd moved to [place]. pt called to update medical hx and give instructions. 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 explained pt that just need to obtain crmd and cardiac clearance from dr freitas office. he said he had spoken with dr freitas nurse earlier today and she said it would be ok. he gave fax number and her direct extension. let him know would contact dr freitas office and also get the clearance per fax. he is currently agreeable to having this done with dr kerr on february 27. will contact pt again after clearance rec'd from dr freitas office. pt voiced understanding.
--- NOTE | 2024-02-25 09:41 | SUR.PREOP ---
Patient called regarding upcoming procedure. Reviewed preop instructions, appointment times, and procedure prep.
[2024-02-28 09:02] VITALS: BP 117/71; PULSE 80; RESP 18; TEMP 36.1; O2SAT 97
[2024-02-28] MEDS: LACTATED RINGERS 1,000 ML 150 ML IV CONT (09:17)
--- NOTE | 2024-02-28 09:38 | P.PNAN_ITS ---
Anes - Initial Pre Proc Eval Procedure: Operation Date: 02/28/24 10:00 Proposed Procedures p Esophagogastroduodenoscopy - Davy Stuart MD Date/Time: 02/28/24 09:38 Surgeon: Davy Stuart MD Pre Op Diagnosis: GERD Patient Data Age: 58 Gender: M Height: 1.75 m Weight: 93.8 kg Last Vital Signs Temp 97 F L 02/28/24 09:02 Pulse 80 02/28/24 09:02 Resp 18 02/28/24 09:02 BP 117/71 02/28/24 09:02 Pulse Ox 97 02/28/24 09:02 O2 Del Method Room Air 02/28/24 09:02 Allergies Allergy/AdvReac Type Severity Reaction Status Date / Time No Known Allergies Allergy Unknown Verified 02/28/24 09:01 Home Medications Medication Instructions Recorded Confirmed Type fexofenadine 180 mg tablet 180 mg PO DAILY 11/19/19 02/24/24 History naloxone 4 mg/actuation nasal 4 mg intranasal Q2M PRN opioid 04/29/20 02/24/24 Rx spray (Narcan) overdose #2 ea aspirin 81 mg tablet 81 mg PO DAILY 03/26/21 02/24/24 History carvedilol 12.5 mg tablet (Coreg) 12.5 mg PO Q12H 08/25/21 02/24/24 History lisinopril 10 mg tablet 10 mg PO DAILY 08/25/21 02/24/24 History albuterol sulfate 90 mcg/actuation 2 inh inhalation Q4H PRN shortness 10/06/23 02/24/24 Rx aerosol inhaler (ProAir HFA) of breath or wheezing #6.7 grams mupirocin 2 % topical ointment 1 applic topical BID 7 days #22 11/29/23 02/24/24 Rx grams nicotine 21 mg/24 hr daily 21 mg transdermal DAILY 11/29/23 02/24/24 History transdermal patch evolocumab 140 mg/mL subcutaneous 140 mg subcut ONCE 01/21/24 02/24/24 History pen injector (Brian Isaacs) esomeprazole magnesium 40 mg 40 mg PO DAILY #90 caps 01/28/24 02/24/24 Rx capsule,delayed release alprazolam 1 mg tablet 1 mg PO TID PRN anxiety #90 tabs 02/01/24 02/24/24 Rx hydrocodone 10 mg-acetaminophen 1 tablet PO Q4-6H PRN pain #150 02/07/24 02/24/24 Rx 325 mg tablet tabs Patient hx anesthesia problems: none Family hx anesthesia problems: none Results Review: All pre-operative results and documents have been reviewed as part of the pre- operative evaluation. [facility] Past Medical History Medical History Abdominal pain Anemia Anxiety disorder, unspecified BMI 28.0-28.9,adult BMI 29.0-29.9,adult BMI 30.0-30.9,adult BMI 32.0-32.9,adult Cardiomyopathy CHF (congestive heart failure) Cough Deviated septum GERD without esophagitis Hoarse voice quality Idiopathic gout Left hip pain Left inguinal hernia Lesion of lumbar spine Lesion of pelvic bone Mass of lung Medial epicondylitis, right elbow Mixed hyperlipidemia Non-small cell cancer of left lung Osteoarthritis of ankle, right Pacemaker Port-A-Cath in place Post-traumatic osteoarthritis, right wrist Scaphoid fracture of wrist Screening for prostate cancer Tinea pedis Tobacco abuse Surgical History Surgical History History of appendectomy History of bronchoscopy Status post hernia repair Family History Family History Father Heart disease Mother A-fib
--- NOTE | 2024-02-28 09:39 | PM.HPGS ---
History of Present Illness History of Present Illness Consent: Risks, benefits, and alternatives have been discussed and questions answered. Patient agrees to proceed with procedure. Chief complaint: GERD Narrative: Iona Jackson is a 58 year old male with lung cancer 11/2022 s/p XRT, lately with hoarseness evaluated by ENT, never had EGD, he is on omeprazole. Review of Systems Review of Systems: All systems reviewed & are unremarkable except as noted in HPI and below PMFSH Past Medical History Medical History Abdominal pain Anemia Anxiety disorder, unspecified BMI 28.0-28.9,adult BMI 29.0-29.9,adult BMI 30.0-30.9,adult BMI 32.0-32.9,adult Cardiomyopathy CHF (congestive heart failure) Cough Deviated septum GERD without esophagitis Hoarse voice quality Idiopathic gout Left hip pain Left inguinal hernia Lesion of lumbar spine Lesion of pelvic bone Mass of lung Medial epicondylitis, right elbow Mixed hyperlipidemia Non-small cell cancer of left lung Osteoarthritis of ankle, right Pacemaker Port-A-Cath in place Post-traumatic osteoarthritis, right wrist Scaphoid fracture of wrist Screening for prostate cancer Tinea pedis Tobacco abuse Surgical History Surgical History History of appendectomy History of bronchoscopy Status post hernia repair Family History Family History Father Heart disease Mother A-fib Diabetes mellitus Sibling Non-Hodgkin lymphoma Sibling , chf No problems noted. Social History Social History Social History: pt has quit smoking cigarettes- pt is vaping Smoking packs per day: 1 Smoking cigarettes per day: 20.0 Years smoked: 40 Smoking pack-years: 40.00 Smoking status: Former smoker Tobacco type: cigarettes Second hand tobacco smoke exposure: Yes Smoking end date: 11/23/22 Alcohol intake: current Drinks per week: 4 Alcohol use details: occas beer Substance use: never Substance use type: does not use Do You Feel Safe in your Home?: Yes Lack of Transportation: No Lack of Food: Never True Current Housing: I Have Housing Concerned About Future Housing: No Difficulty Paying Gas/Electric Bills: No Difficulty Paying for Meds: No Currently Unemployed: No Education: Trade/Vocational Certificate Difficulty w/ Childcare or Family Care: No Living arrangements: with roommate(s) Occupation/Education: retired Additional occupation/education comments: [employer] Gender identity (if verbalized by the patient): Male Spiritual care concerns: No Meds Home Medications and Allergies Home Medications Medication Instructions Recorded Confirmed Type fexofenadine 180 mg tablet 180 mg PO DAILY 11/19/19 02/24/24 History naloxone 4 mg/actuation nasal 4 mg intranasal Q2M PRN opioid 04/29/20 02/24/24 Rx spray (Narcan) overdose #2 ea aspirin 81 mg tablet 81 mg PO DAILY 03/26/21 02/24/24 History carvedilol 12.5 mg tablet (Coreg) 12.5 mg PO Q12H 08/25/21 02/24/24 History lisinopril 10 mg tablet 10 mg PO DAILY 08/25/21 02/24/24 History albuterol sulfate 90 mcg/actuation 2 inh inhalation Q4H PRN shortness 10/06/23 02/24/24 Rx aerosol inhaler (ProAir HFA) of breath or wheezing #6.7 grams mupirocin 2 % topical ointment 1 applic topical BID 7 days #22 11/29/23 02/24/24 Rx grams nicotine 21 mg/24 hr daily 21 mg transdermal DAILY 11/29/23 02/24/24 History transdermal patch evolocumab 140 mg/mL subcutaneous 140 mg subcut ONCE 01/21/24 02/24/24 History pen injector (Brian Isaacs) esomeprazole magnesium 40 mg 40 mg PO DAILY #90 caps 01/28/24 02/24/24 Rx capsule,delayed release alprazolam 1 mg tablet 1 mg PO TID PRN anxiety #90 tabs 02/01/24 02/24/24 Rx hydrocodone 10 mg-acet
[2024-02-28] MEDS: BENZOCAINE (*SP) 60 ML SPRAY CAN (HURRICAINE) 1 SPRAY MUCOUS MEM (09:44)
[2024-02-28 09:53] VITALS: BP 139/71; PULSE 74; RESP 22; O2SAT 99
[2024-02-28 10:03] VITALS: BP 89/71; PULSE 78; RESP 20; O2SAT 98
[2024-02-28 10:13] VITALS: BP 94/62; PULSE 77; RESP 17; O2SAT 99
== END 2024-02-28 10:19 | disposition home or self-care (01) ==
PROVIDERS: PCP Family Medicine; Visit Provider Internal Medicine Gastroenterology
PROC: 0DJ08ZZ Inspection of Upper Intestinal Tract, Via Natural or Artificial Opening Endoscopic (ICD-10-PCS; CPT 43235; principal; 2024-02-28 10:00)
DX: K29.50 Unspecified chronic gastritis without bleeding (principal); K22.89 Other specified disease of esophagus; K21.9 Gastro-esophageal reflux disease without esophagitis; K44.9 Diaphragmatic hernia without obstruction or gangrene; D64.9 Anemia, unspecified; F41.9 Anxiety disorder, unspecified; I42.9 Cardiomyopathy, unspecified; I50.9 Heart failure, unspecified; E78.2 Mixed hyperlipidemia; E66.9 Obesity, unspecified; Z68.30 Body mass index [BMI] 30.0-30.9, adult; Z79.82 Long term (current) use of aspirin; Z79.51 Long term (current) use of inhaled steroids; Z79.85 Long-term (current) use of injectable non-insulin antidiabetic drugs; Z79.891 Long term (current) use of opiate analgesic; Z98.890 Other specified postprocedural states; Z95.0 Presence of cardiac pacemaker; Z85.118 Personal history of other malignant neoplasm of bronchus and lung; Z87.891 Personal history of nicotine dependence; Z82.49 Family history of ischemic heart disease and other diseases of the circulatory system
CPT/HCPCS: 43239; 88305; J2704; J7120

== ENCOUNTER 2024-05-04 10:59 | Outpatient (CLI) | payer MEDICARE, MEDICAID, SELFPAY ==
--- NOTE | 2024-05-04 | ECHO_ITS ---
Patient Info Name: Iona Jackson Age: 58 years : 1965 Gender: Male Ht: 69 in Wt: 205 lbs BSA: 2.15 m2 HR: 67 bpm BP: 114 / 76 mmHg Technical Quality: Fair Exam Date: 05/04/2024 11:19 AM Exam Location: Echo Lab Patient Status: Outpatient Admit Date: 05/04/2024 Staff Ordering Physician: Yimi Carrillo MD [employer] Consultant: Alicia Kwong RDCS Attending Provider: Yimi Carrillo MD Referring Physician: Lorena MONAE; Exam Type: CA echo doppler color flow Study Info Indications I48.0 - Paroxysmal atrial fibrillation C34.90 - Malignant neoplasm of unspecified part of unspecified bronchus or lung Complete two-dimensional, color flow and Doppler transthoracic echocardiogram is performed. Strain analysis performed. Summary 1. Complete two-dimensional, color flow and Doppler transthoracic echocardiogram is performed. 2. Left ventricular systolic function is moderately globally reduced, estimated at 40-45%. 3. Left ventricular chamber dimension is moderately enlarged. 4. The left ventricular diastolic function is abnormal. 5. E/e' 10 is mildly elevated. 6. Global longitudinal strain is abnormal at -12.5%. 7. There is mild aortic valve sclerosis. 8. The mitral valve has mildly calcified annulus. 9. There is mild mitral valve regurgitation. 10. There is mild tricuspid valve regurgitation. 11. No pulmonary hypertension, estimated pulmonary arterial systolic pressure is 31 mmHg. Left Ventricle E/e' 10 is mildly elevated. Global longitudinal strain is abnormal at -12.5%. Left ventricular systolic function is moderately globally reduced, estimated at 40-45%. Left ventricular chamber dimension is moderately enlarged. The left ventricular diastolic function is abnormal. Right Ventricle Right ventricular systolic function is normal and with normal TAPSE 2.3 cm. Right ventricular chamber dimension is normal. Left Atria Left atrial chamber dimension is normal. Right Atria Right atrial chamber dimension is normal. Aortic Valve The aortic valve is trileaflet. There is mild aortic valve sclerosis. There is no aortic valve stenosis. There is no aortic valve regurgitation. Pulmonic Valve There is no pulmonic regurgitation. Mitral Valve The mitral valve has mildly calcified annulus. There is no mitral valve stenosis. There is mild mitral valve regurgitation. Tricuspid Valve There is mild tricuspid valve regurgitation. No pulmonary hypertension, estimated pulmonary arterial systolic pressure is 31 mmHg. Pericardium/Pleural There is no pericardial effusion. Inferior Vena Cava Normal inferior vena cava with >50% collapse upon inspiration consistent with normal right atrial pressure, 5 mmHg. Aorta The aortic root size at the sinus of Valsalva is normal. Left Ventricular Outflow Tract Name Value Normal LVOT Doppler LVOT Peak Gradient 3 mmHg LVOT Mean Gradient 1 mmHg LVOT VTI 15 cm LVOT VTI/AV VTI Ratio 0.8 Pulmonic Valve Name Value Normal RVOT Doppler
== END 2024-05-04 11:00 | disposition home or self-care (01) ==
PROVIDERS: PCP Family Medicine; Visit Provider Internal Medicine Cardiovascular Disease
DX: I08.3 Combined rheumatic disorders of mitral, aortic and tricuspid valves (principal); C34.90 Malignant neoplasm of unspecified part of unspecified bronchus or lung; I48.0 Paroxysmal atrial fibrillation; E78.5 Hyperlipidemia, unspecified; R53.83 Other fatigue; K64.9 Unspecified hemorrhoids; R06.02 Shortness of breath; F17.200 Nicotine dependence, unspecified, uncomplicated; Z95.810 Presence of automatic (implantable) cardiac defibrillator; I25.10 Atherosclerotic heart disease of native coronary artery without angina pectoris; I42.9 Cardiomyopathy, unspecified; I50.9 Heart failure, unspecified
CPT/HCPCS: 93306

== ENCOUNTER 2024-07-05 13:00 | Outpatient (CLI) | payer MEDICARE, MEDICAID, SELFPAY ==
[2024-07-05 14:42] LABS: Hematocrit 44.5 % (42.0-52.0); Hemoglobin 14.9 g/dL (14.0-18.0); Mean Corpuscular HGB Conc 33.5 g/dl (32-36); Mean Corpuscular Hemoglobin 33.3 pg (26-34); Mean Corpuscular Volume 99.6 fl (80-100); Mean Platelet Volume 10.5 fl (7.4-10.4); Platelet Count Result 277 k/mm3 (150-375); Red Blood Count 4.47 M/mm3 (4.6-6.20); Red Cell Distribution Width 13.3 % (11.5-14.5); White Blood Count 9.3 K/mm3 (4.5-10.0)
[2024-07-05 14:49] LABS: Alanine Aminotransferase 36 U/L (6-50); Albumin Level 4.2 g/dL (3.5-5.1); Alkaline Phosphatase 60 U/L (38-126); Anion Gap 8 mmol/L (4-12); Aspartate Amino Transferase 32 U/L (17-59); Bilirubin,Total 0.4 mg/dL (0.2-1.3); Blood Urea Nitrogen 11 mg/dL (9-20); Carbon Dioxide 27 mmol/L (22-30); Chloride 99 mmol/L (98-107); Cholesterol 242 mg/dL (0-200); Estimated Glomerular Filt Rate > 60; Glucose 104 mg/dL (65-110); HDL Direct 45 mg/dL; Potassium 4.4 mmol/L (3.4-5.0); Sodium 134 mmol/L (137-145); Triglycerides 421 mg/dL (<150); Uric Acid 6.6 mg/dL (3.5-8.5)
[2024-07-05 15:02] LABS: LDL Cholesterol Direct 92 mg/dL
[2024-07-05 15:15] LABS: Iron 82 ug/dL (49-181)
[2024-07-05 15:22] LABS: Prostate Specific Antigen 1.6 ng/mL (< OR = 4.0)
[2024-07-05 15:27] LABS: Percent Iron Saturation 22 % (20-50)
== END 2024-07-05 13:01 | disposition home or self-care (01) ==
LOC: ANHLAB 13:11
PROVIDERS: PCP Family Medicine; Visit Provider Family Medicine
DX: D64.9 Anemia, unspecified (principal); N28.9 Disorder of kidney and ureter, unspecified; E78.2 Mixed hyperlipidemia; Z13.220 Encounter for screening for lipoid disorders; K21.9 Gastro-esophageal reflux disease without esophagitis; R49.0 Dysphonia; M1A.00X0 Idiopathic chronic gout, unspecified site, without tophus (tophi); Z12.5 Encounter for screening for malignant neoplasm of prostate
CPT/HCPCS: 36415; 80048; 80061; 80076; 82607; 82728; 83540; 83550; 84153; 84443; 84550; 85027; G0103

== ENCOUNTER 2024-09-19 11:03 | Outpatient (CLI) | payer MEDICARE, MEDICAID, SELFPAY ==
--- NOTE | ~2024-09-19 | XR_ITS ---
EXAMINATION: XR hip LT 2V w AP pelvis DATE: 09/19/2024 11:27 INDICATION: Left hip pain. TECHNIQUE: An anteroposterior view of the pelvis and 2 views of left hip were obtained. COMPARISON: CT abdomen and pelvis 11/05/2023 FINDINGS: Bone alignment is normal. No fracture. There is moderate lumbar spondylosis. There is mild right hip osteoarthritis and moderate left hip osteoarthrosis. IMPRESSION: 1. Mild right hip osteoarthritis and moderate left hip osteoarthritis. Reviewed, dictated and finalized at location []
== END 2024-09-19 11:04 | disposition home or self-care (01) ==
PROVIDERS: PCP Family Medicine; Visit Provider Nurse Practitioner Family
DX: M16.0 Bilateral primary osteoarthritis of hip (principal)
CPT/HCPCS: 73502

== ENCOUNTER 2025-03-21 14:46 | Outpatient (CLI) | payer MEDICARE, MEDICAID, SELFPAY ==
--- NOTE | 2025-03-21 | ECHO_ITS ---
Patient Info Name: Iona Jackson Age: 59 years : 1965 Gender: Male Ht: 69 in Wt: 195 lbs BSA: 2.10 m2 HR: 81 bpm BP: 122 / 80 mmHg Technical Quality: Good Exam Date: 03/21/2025 3:10 PM Exam Location: Echo Lab Patient Status: Outpatient Admit Date: 03/21/2025 Staff Ordering Physician: Yimi Carrillo MD ([facility]) Interpretative Dancer: Candis Carroll RDCS Attending Provider: Yimi Carrillo MD ([facility]) Referring Physician: Lorena MONAE; Exam Type: CA echo doppler color flow Study Info Indications R00.2 - Palpitations I42.9 - Cardiomyopathy, unspecified C34.90 - Malignant neoplasm of unspecified part of unspecified bronchus or lung Complete two-dimensional, color flow and Doppler transthoracic echocardiogram is performed. Strain analysis performed. Summary 1. Complete two-dimensional, color flow and Doppler transthoracic echocardiogram is performed. 2. Left ventricular chamber dimension is normal. 3. Left ventricular systolic function is preserved, estimated at 50-55%. 4. The left ventricular diastolic function is grade I diastolic dysfunction. 5. E/e' 8 is minimally elevated. 6. Global longitudinal strain is abnormal at -11.4%. 7. Linear artifact in right ventricle suggestive of catheter(s), pacemaker lead(s), or ICD lead(s). 8. Linear artifact in the right atrium suggestive of catheter(s), pacemaker lead(s), or ICD lead(s). 9. There is mild mitral valve regurgitation. 10. No pulmonary hypertension, estimated pulmonary arterial systolic pressure is 32 mmHg. Left Ventricle E/e' 8 is minimally elevated. Global longitudinal strain is abnormal at -11.4%. Left ventricular systolic function is preserved, estimated at 50-55%. Left ventricular chamber dimension is normal. The left ventricular diastolic function is grade I diastolic dysfunction. Right Ventricle Linear artifact in right ventricle suggestive of catheter(s), pacemaker lead(s), or ICD lead(s). Right ventricular chamber dimension is normal. Right ventricular systolic function is normal. Left Atria Left atrial chamber dimension is normal. Right Atria Linear artifact in the right atrium suggestive of catheter(s), pacemaker lead(s), or ICD lead(s). Right atrial chamber dimension is normal. Aortic Valve The aortic valve is trileaflet. There is no aortic valve stenosis. There is no aortic valve regurgitation. Pulmonic Valve There is no pulmonic regurgitation. Mitral Valve There is no mitral valve stenosis. There is mild mitral valve regurgitation. Tricuspid Valve There is no tricuspid valve regurgitation. No pulmonary hypertension, estimated pulmonary arterial systolic pressure is 32 mmHg. Pericardium/Pleural There is no pericardial effusion. Inferior Vena Cava Normal inferior vena cava with >50% collapse upon inspiration consistent with normal right atrial pressure, 5 mmHg. Aorta The aortic root size at the sinus of Valsalva is normal. Left Ventricular Outflow Tract Name Value Normal LVOT Doppler LVOT Peak Gradient 4 mmHg LVOT Mean Gradient 3 mmHg LVOT VTI 19 cm LVOT VTI/AV VTI Ratio 0.8 Pulmonic Valve Name Value Normal PV Doppler PV Peak Gradient 4 mmHg Mitral Valve Name Value Normal MV Doppler MV Decel [place] 429 cm/s2 MV PHT 49 ms MV Area (PHT) 4.5 cm2 4.0-5.0 MV Diastolic Function MV E Peak Velocity 72 cm/s MV A Peak Velocity 89 cm/s MV E/A 0.8 MV Decel Time 167 ms MV Annular TDI MV E/e' (Septal) 10.0 <=8.0 MV E/e' (Lateral) 7.9 <=8.0 MV E/e' (Average) 8.9 Tricuspid Valve Name Value Normal TV Regurgitation Doppler TR Peak Velocity 261 cm/s TR Peak Gradient 24 mmHg Estimated PAP/RSVP RA Pressure 5 mmHg <=5 PA Systolic Pressure 32 mmHg <36 RV Systolic Pressure 32 mmHg <36 Aorta Name Value Normal Ascending Aorta Ao Root Diameter (MM) 3.0 cm Ao Root Diam Index (MM) 1.5 cm/m2 Aortic Valve Name Value Normal AV Doppler AV Peak Velocity 135 cm/s AV Peak Gradient 7 mmHg AV Mean Gradient 4 mmHg AV VTI 24 cm Ventricles Name Value Normal LV Dimensions 2D/MM IVS Diastolic Thickness (2D) 1.0 cm 0.6-1.0 LVID Diastole (2D) 4.4 cm 4.2-5.8 LVIW Diastolic Thickness (2D) 0.9 cm 0.6-1.0 LVID Systole (2D) 3.6 cm 2.5-4.0 LV Mass (2D Cubed) 136.09 g 88.00-224.00 LV Mass Index (2D Cubed) 65 g/m2 49-115 Relative Wall Thickness (2D) 0.41 LV Fractional Shortening/Ejection Fraction 2D/MM LV Fractional Shortening (2D) 19 % 25-43 LV EF (2D Teicholz) 40 % 52-72 LV Diastolic Volume (4C MOD) 112 ml LV EF (4C MOD) 39 % LV Diastolic Volume (2C MOD) 147 ml LV EF (2C MOD) 54 % LV Diastolic Volume (BP MOD) 137 ml 62-150 LV Diastolic Volume Index (BP MOD) 65 ml/m2 34-74 LV Systolic Volume (BP MOD) 71 ml 21-61 LV Systolic Volume Index (BP MOD) 34 ml/m2 11-31 LV EF (BP MOD) 48 % 52-72 LV Diastolic Length (4C) 9.1 cm LV Systolic Length (4C) 7.7 cm LV Stroke Volume (4C MOD) 44 ml RV Dimensions 2D/MM RVID Diastole (2D) 3.2 cm 2.5-3.5 Atria Name Value Normal LA Dimensions LA Dimension (MM) 3.4 cm 3.0-4.1 LA Volume (4C A-L) 39 ml LA Volume (BP A-L) 45 ml RA Dimensions RA Area (4C) 13.7 cm2 <=18.0 EchoPAC Name Value Normal AutoEF LVCO_BiP_Q (Hlyf1WPW) 4.1 l/min LVEF_BiP_Q (Gucq5WTT) 35 % LVSV_BiP_Q (Vfkl6UDS) 45 ml LVVED_BiP_Q (Iyka5WIF) 130 ml LVVES_BiP_Q (Hxem7QRX) 84 ml HR_4Ch_Q (Geum4JJW) 85 bpm LVCO_4Ch_Q (Pryy7ZZR) 3.9 l/min LVEF_4Ch_Q (Pwwe1LDV) 38 % LVLd_4Ch_Q (Ldiu6CZA) 9.4 cm LVLs_4Ch_Q (Uhzw4XAY) 8.4 cm LVSV_4Ch_Q (Qgdy5AXQ) 46 ml LVVED_4Ch_Q (Pibk0SXS) 121 ml LVVES_4Ch_Q (Iyjs2XTG) 75 ml HR_2Ch_Q (Fqqb8HGU) 83 bpm LVCO_2Ch_Q (Rhsn9FVI) 4.3 l/min LVEF_2Ch_Q (Zrug2DJS) 36 % LVLd_2Ch_Q (Awql3GER) 10.2 cm LVLs_2Ch_Q (Fcit3DTB) 9.2 cm LVSV_2Ch_Q (Qegl9QJF) 52 ml LVVED_2Ch_Q (Vxpv5BVB) 144 ml LVVES_2Ch_Q (Zqon0NKX) 92 ml GABRIEL AA peak sys SL (AWAR) 13.7 % AAS peak sys SL (AWMA) 16.2 % AI peak sys SL (AWMA) 17.2 % AL peak sys SL (AWMA) 16.4 % AP peak sys SL (AWMA) 13.9 % peak sys SL (AWMA) 17.0 % AVC (AWMA) 397 ms BA peak sys SL (AWMA) 13.2 % BAS peak sys SL (AWMA) 4.5 % BI peak sys SL (AWMA) 7.1 % BL peak sys SL (AWMA) 9.9 % BP peak sys SL (AWMA) 4.5 % BS peak sys SL (AWMA) 11.5 % G peak SL(A2C) (AWMA) 12.2 % G peak SL(A4C) (AWMA) 13.0 % G peak SL(APLAX) (AWMA) 9.2 % G peak SL(Avg) (AWMA) 11.5 % MA peak sys SL (AWMA) 8.5 % MAS peak sys SL (AWMA) 12.3 % WY peak sys SL (AWMA) 10.8 % ML peak sys SL (AWMA) 11.9 % MP peak sys SL (AWMA) 10.6 % MS peak sys SL (AWMA) 12.9 % Report Signatures
--- OUTSIDE RECORDS SUMMARY | 2025-03-21 15:44 | XMS_ITS | Encounter Summary ---
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 Oncology [address] 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 Gender Identity Not on file Sexual Orientation Not on file documented as of this encounter Plan of Treatment Not on file documented as of this encounter Visit Diagnoses Not on filedocumented in this encounter Care Teams Tassel Making Machine Operator Relationship Specialty Start Date End Date Gordon Argueta MD PCP - General 01/19/13 Margaret Greene MD [address] [place] [address] [id number] Consulting Physician Pulmonary Disease 12/15/22 3 3 Tashi Duran MD [address] [place] [address] [phone] Consulting Physician Pulmonary Disease 12/15/22 Skyler Sun MD PhD [address] [place] [address] MEDICAL ONCOLOGY, [address] [phone] Medical Oncologist/Director [employer] Medical Oncology 01/28/23 Naveed Vance MD [address] [place] [address] MEDICAL ONCOLOGY, [address] [phone] Consulting Physician Thoracic Surgery 01/28/23 02/06/23 Yimi Carrillo Jr., MD [address] [place] [address] Doggy Daycare Activities Director Cardiovascular Disease 01/28/23 [place] [address] [facility] [address] [place] [address] Referring Physician Pulmonary Disease 01/28/23 [place] [address] [facility] [address] [place] [address] Radiation Oncologist Radiation Oncology 02/10/2311/13 Shira Nichole MD [address] [address] Radiation Oncologist Radiation Oncology 11/14/24 documented as of this encounter
--- OUTSIDE RECORDS SUMMARY | 2025-03-21 15:44 | XMS_ITS | Clinical Summary ---
Author Organization [facility] Address [address], [facility] [address] [place] [address] Phone Care Team Providers Care Trim Attacher Name Role Phone Gordon Argueta MD Primary Care Provider [phone] Edward Najera MD Unavailable Social History Tobacco Use Types Packs/Day Years Used Date Smoking Tobacco: Never Assessed Sex and Gender Information Value Date Recorded Sex Assigned at Not on file Legal Sex Male 5:43 PM CDT Gender Identity Not on file Sexual Orientation Not on file Plan of Treatment Health Maintenance Due Date Last Done Comments Hepatitis C Virus (HCV) Screening 1965 TdaP Immunization 1965 Cologuard 2014 Immunochemical Fecal Occult Blood 2014 Pneumococcal Immunization (50+ years) (1 of 1 - PCV) 2014 Zoster Immunization (1 of 2) 2014 PSA Discussion 2019 Influenza Immunization (#1) 07/23/202408/23, 09/02/2019, 11/08/2018, Additional history exists SARS-COV-2 Immunization ( season) 2024 03/01/2021 Colonoscopy 08/28/2025 08/28/2015 Colorectal Cancer Screening 08/28/2025 Respiratory Syncytial Virus (RSV) Immunization (Adult) (1 - 1-dose 75+ series) 2039 08/28/2015 Hepatitis B Immunization Aged Out No longer eligible based on patient's age to complete this topic Meningococcal Immunization (ACWY) Aged Out No longer eligible based on patient's age to complete this topic Rotavirus Immunization Aged Out No lo nger eligible based on patient's age to complete this topic Procedures Procedure Name Priority Date/Time Associated Diagnosis Comments COLONOSCOPY Routine 08/28/2015 from Last 3 Months or Most Recently Relevant to Health Maintenance Results * COLONOSCOPY (08/28/2015) Basim Aldana MD PROCEDURE/MINOR SURGICAL ORDSteve ALVARADO Final Result from Last 3 Months or Most Recently Relevant to Health Maintenance Insurance MEDICARE C [employer] Care Teams Trim Attacher Relationship Specialty Start Date End Date Gordon Argueta MD [address] [place] [address] PCP - General Family Medicine 08/03/24 Edward Najera MD [address] [place] [address] [place] [address] Consulting Physician Oncology 08/03/24
--- OUTSIDE RECORDS SUMMARY | 2025-03-21 15:44 | XMS_ITS | Clinical Summary ---
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 Name Role Phone Gordon Argueta MD Primary Care Provider Tashi Duran MD Unavailable Skyler Sun MD PhD Unavailable Lorena Coronado MD, Yimi PChris Unavailable William Marte MD Unavailable Shira Nichole MD Unavailable [phone] Allergies No known active allergies Medications ALPRAZolam (XANAX) 0.5 mg tablet take 1 tablet by oral route every day 0 01/19/20 13 Active Additional Information Patient not taking.Reported on 01/23/2025 fexofenadine (EMMY) 180 mg tablet take 1 tablet (180MG) by oral route every day 0 01/19/20 13 Active Additional Information Patient not taking.Reported on 01/23/2025 carvedilol (COREG) 6.25 mg tablet take 1 Tablet by ORAL route 2 times every day with food 180 3 07/17/20 14 Active Additional Information Patient not taking.Reported on 01/23/2025 lisinopril (PRINIVIL,ZEST RIL) 5 mg tablet TAKE 1 TABLET BY MOUTH 2 TIMES EVERY DAY 60 5 02/15/20 13 Active Additional Information Patient not taking.Reported on 01/23/2025 aspirin 81 mg enteric coated tablet Take 1 tablet (81 mg total) by mouth daily Active spironolactone (ALDACTONE) 25 mg tablet Take 1 tablet (25 mg total) by mouth daily Active HYDROcodone-ac etaminophen (NORCO) 5-325 mg per tabletIndicati ons:Pain Take 2 tablets by mouth every 6 (six) hours as needed Active Repatha SureClick 140 mg/mL pen injector INJECT 1 PEN UNDER THE SKIN EVERY TWO WEEKS 12/08/19 23 Active omeprazole (PriLOSEC) 40 mg capsule Take 1 capsule (40 mg total) by mouth daily 12/04/19 23 Active Anoro Ellipta 62.5-25 mcg/actuation blister with device Inhale 1 puff daily 01/13/20 23 Active krill oil 500 mg capsule Take 1 tablet/capsule by mouth daily Active nicotine (NICODERM CQ) [address] 1 PATCH TRANSDERMALLY ONCE DAILY 01/21/20 23 Active prochlorperazi ne (Compazine) 10 mg tabletIndicati ons:Malignant neoplasm of upper lobe of left lung (HCC) Take 1 tablet (10 mg total) by mouth every 6 (six) hours as needed for nausea or vomiting Use first for nausea 120 tablet 3 02/23/20 23 Active Additional Information Patient not taking.Reported on 01/23/2025 ondansetron (ZOFRAN) 8 mg tabletIndicati ons:Malignant neoplasm of upper lobe of left lung (HCC) Take 1 tablet (8 mg total) by mouth every 8 (eight) hours as needed for nausea or vomiting Use if prochlorperazine does not stop nausea 24 tablet 3 02/23/20 23 Active Additional Information Patient not taking.Reported on 01/23/2025 lidocaine (LMX) 4 % cream Apply thin layer to sternal area 30-45 minutes prior to radiation therapy 30 g 3 02/04/20 23 Active atorvastatin (LIPITOR) 80 mg tablet 03/23/20 23 Active ALPRAZolam (XANAX) 1 mg tablet Take by mouth 3 (three) times a day as needed 04/14/20 23 Active carvediloL (COREG) 12.5 mg tablet 04/08/20 23 Active HYDROcodone-ac etaminophen (NORCO) 10-325 mg per tablet 04/22/20 23 Active lisinopriL (PRINIVIL,ZEST RIL) 10 mg tablet 04/08/20 23 Active escitalopram (LEXAPRO) 10 mg tablet 06/07/20 23 Active furosemide (LASIX) 20 mg tablet furosemide 20 mg tablet 09/20/20 23 Active albuterol HFA (PROVENTIL HFA,VENTOLIN HFA,PROAIR HFA) 90 mcg/actuation inhaler INHALE 2 PUFFS BY MOUTH EVERY 4 HOURS NEEDED FOR SHORTNESS OF BREATH AND/OR WHEEZING 10/06/20 23 Active lidocaine-pril ocaine (EMLA) creamIndicatio ns:Administrat ion of Local Anesthesia Apply topically as needed for other (prior to portacath acess) 30 g 1 10/12/20 23 Active Additional Information Patient not taking.Reported on 01/23/2025 alclomethasone (ACLOVATE) 0.05 % cream 10/22/20 23 Active econazole 1 % cream APPLY TOPICALLY TO THE AFFECTED AREA TWICE DAILY 10/06/20 23 Active triamcinolone (KENALOG) 0.1 % creamIndicatio ns:Malignant neoplasm of upper lobe of left lung (HCC) Apply topically 2 (two) times a day 453.6 g 1 11/23/19 24 Active fluconazole (DIFLUCAN) 150 mg tablet Take 1 tablet (150 mg total) by mouth daily Active Wegovy 0.25 mg/0.5 mL auto-injector ADMINISTER 0.25 MG UNDER THE SKIN 1 TIME A WEEK 01/18/20 25 Active Active Problems Patient Care Coordination No te Formatting of this note is d ifferent from the original. This is a 57-year-old male presenting to us with a lung mass. He is a medical history significant for cardiomyopathy, high cholesterol, hypertension, coronary artery disease, congestive heart failure, pancreatitis and myocardial infarction. He is an everyday smoker. He presented to the emergency department on 11/29/2022 with complaints of chest pain and occasional palpitations. He reports some exertional shortness of breath but none at rest. He underwent a chest x-ray that showed an opacity in the left hilar suprahilar region including near the aortic arch, this is nonspecific. Mild prominence of interstitium, nonspecific may be due to mild vascular congestion. This was followed up with a CT of the chest. No identified pulmonary emboli. A lobulated lung mass is seen in the medial left upper lobe measuring 4.2 x 3.5 cm. 7 mm solid nodule in the superior segment of the left lower lobe. There is mild background emphysema with minimal septal line thickening and minimal mosaic attenuation more pronounced in the lung bases. No pneumonic consolidation. No effusion. No pneumothorax. Confluent left hilar lymphadenopathy present. Multiple other mildly enlarged mediastinal nodes also present. For example, 1.6 x 1.2 cm lymph node in the right paratracheal region. A small hiatal hernia is present. Heart size is mildly enlarged with no pericardial effusion. Dense three-vessel coronary artery atherosclerotic calcification noted. No axillary adenopathy. Left chest wall pacemaker/defibrillator with atrial ventricular and coronary sinus leads in place. No significant abnormality. Too small to characterize cystic lesions in the left and right hepatic lobes likely represent cyst. He underwent pulmonary function testing at [facility]. These results are still pending. On December 11, 2022, he underwent a PET scan that showed the following results: IMPRESSION: 1. Hypermetabolic mass in the left upper lobe highly suspicious for primary lung malignancy. 7 mm nodule in the posterior segment of the left lower lobe is non hypermetabolic. 2. Hypermetabolic left hilar and ipsilateral and contralateral mediastinal lymph nodes suggestive of regional diane metastases. 3. No evidence of distant metastasis. He is not had a biopsy to date. He takes a baby aspirin for cardiomyopathy and coronary artery disease. He has a defibrillator in place. This is for congestive heart failure. He is not met with Medical or Radiation Oncology. He is here for further surgical evaluation and discussion. Review of systems positive for fatigue, hemorrhoids, high blood pressure, anxiety, and need to sleep with 2 or more pillows. All other systems negative. Physical examination revealed a supple neck without lymphadenopathy. No bruit noted. Pupils equal and reactive to light. Oral mucosa pink and moist. Heart regular rate and rhythm. No extrasystoles noted. Lungs clear to auscultation bilaterally. No inspiratory expiratory wheezing. Abdomen protuberant. Abdomen nontender with bowel sounds present in all quadrants. Extremities showed no evidence of cyanosis or edema. Clubbing noted. He was alert and oriented with no focal neurologic deficit identified. Assessment/Plan- Mr. Jackson is a pleasant 57 he rolled smoker with a left hilar/upper lobe lung mass with bulky bilateral lymphadenopathy. This clinically appears to be a stage III non-small cell carcinoma versus a small cell carcinoma. Dr. Vance will reach out to the Interventional Pulmonary Department at this center. We will request a follow-up EBUS for tissue diagnosis. Once we have a diagnosis, we will make appropriate referrals to Oncology. Problem Noted Date Diagnosed Date Dehydration 05/13/2023 Personal history of radiation therapy 05/13/2023 Malignant neoplasm of upper lobe of left lung Cancer Staging:Clinical stage from 02/10/2023:Stage IIIB(cT2b, cN3, cM0) - Signed by Shira Nichole MD on 02/10/2023 Weight loss 12/17/2022 Simple chronic bronchitis 12/17/2022 Mediastinal lymphadenopathy 12/15/2022 Mass of upper lobe of left lung 12/07/2022 Paroxysmal atrial fibrillation 11/11/2022 Recurrent right inguinal hernia 12/04/2019 Dyslipidemia 04/05/2019 Fatigue 04/05/2019 Hemorrhoids 04/05/2019 Shortness of breath 05/15/2018 AICD (automatic cardioverter/defibrillator) pres ent 09/30/2016 Atherosclerosis of coronary artery 07/10/2016 Left bundle branch block (LBBB) 07/10/2016 Chronic systolic heart failure 03/19/2015 Generalized ischemic myocardial dysfunction 02/21 Tobacco dependence syndrome 01/15/2015 Overview (02/25/2017): Tobacco dependence syndrome Cardiomyopathy 01/15/2015 Overview (12/15/2022): Primary cardiomyopathy Pure hypercholesterolemia 01/15/2015 Overview (02/25/2017): Pure hypercholesterolemia Encounters Date Type Department Care Team Description 01/23/2025 1:00 PM SERVICE ORDER TAKER Office Visit [facility] Oncology [address] [place] [address] [place] [id number] Skyler Sun MD PhD Malignant neoplasm of upper lobe of left lung (HCC) (Primary Dx); Other fatigue 01/23/2025 11:22 AM SERVICE ORDER TAKER - 01/23/2025 11:59 PM SERVICE ORDER TAKER Hospital Encounter [facility] Medical Office Building [address] [address] Malignant neoplasm of upper lobe of left lung (HCC) Discharge Disposition: Discharge to home or self care 01/23/2025 10:45 AM SERVICE ORDER TAKER Clinical Support [facility] at [address] [address] Malignant neoplasm of upper lobe of left lung (HCC); Other fatigue from Last 3 Months Surgical History Surgery Date Site/Laterality Comments ROTATOR CUFF REPAIR 11/22/2002 - 11/21/2003 Left Rotator Cuff Repair ANKLE SURGERY 11/22/1981 - 11/21/1982 Right Right Ankle Surgery APPENDECTOMY 11/22/2017 - 11/21/2018 Appendectomy HERNIA REPAIR 11/22/2019 - 11/21/2020 Right INSERT / REPLACE / REMOVE PACEMAKER 01/26/2022 Left replace generator CARDIAC CATHETERIZATION BRONCHOSCOPY PORT PLACEMENT CHEST >5 YEARS 02/11/2023 N/A Medical History Medical History Date Comments Coronary artery disease Myocardial infarction (HCC) Hypertension CHF (congestive heart failure) (HCC) Pancreatitis Diverticulitis Heart disease GERD (gastroesophageal reflux disease) Hyperlipidemia Obesity Asthma Cancer (HCC) lung Cancer 2022 diagnosis Anxiety Lung cancer (HCC) Arrhythmia Lung disease Chronic bronchitis (HCC) Family History Medical History Relation Name Comments Non-Hodgkin's Lymphoma Brother Coronary artery disease Father Tesha nary Artery Bypass Graft; Lung cancer Maternal Grandfather Arrhythmia Mother Arrhythmias; Atrial fibrillation Mother Family h istory of atrial fibrillation - (Added by TW Conv) Heart failure Sister Relation Name Status Comments Brother Alive Father Alive Maternal Grandfather Alive Mother Alive Sister Social History Tobacco Use Types Packs/Day Years Used Date Smoking Tobacco: Former Cigarettes 0.8 44.7 1 978 - 08/22/2022 Smokeless Tobacco: Never Tobacco Cessation:Counseling Given: Not Answered Alcohol Use Standard Drinks/Week Comments Yes 0 (1 standard drink = 0.6 oz pur e alcohol) AUDIT-C Answer Date Recorded Frequency of Alcohol Consumption Not on file 01/23/2025 Q2: How many drinks containi ng alcohol do you have on a typical day when you are drinking? 1 or 2 01/23/2025 Q3: How often do you have si x or more drinks on one occasion? Less than monthly 01/23/2025 Personal Safety Answer Date Recorded Have you ever been in or are you currently in a harmful physical or emotional relationship or is someone making you feel afraid or unsafe? Denies 02/11/2023 Sex and Gender Information Value Date Recorded Sex Assigned at Not on file Legal Sex Male 8:49 AM SERVICE ORDER TAKER Gender Identity Not on file Sexual Orientation Not on file Obstetrics History Last Filed Vital Signs Vital Sign Reading Time Taken Comments Blood Pressure 110/76 01/23/2025 1:14 PM SERVICE ORDER TAKER Pulse 86 01/23/2025 1:14 PM SERVICE ORDER TAKER Temperature 37 C (98.6 F) 01/23/2025 1:14 PM SERVICE ORDER TAKER Respiratory Rate 18 01/23/2025 1:14 PM SERVICE ORDER TAKER Oxygen Saturation 96% 01/23/2025 1:14 PM SERVICE ORDER TAKER Inhaled Oxygen Concentration - - Weight 91.9 kg (202 lb 9.6 oz) 01/23/2025 1:14 P M SERVICE ORDER TAKER Height 172.7 cm (5' 8 ) 01/23/2025 1:14 PM SERVICE ORDER TAKER Body Mass Index 30.81 01/23/2025 1:14 PM SERVICE ORDER TAKER Plan of Treatment Health Maintenance Due Date Last Done Comments Depression Screening 1965 Hepatitis C Screening 1965 Prostate Cancer Screening-PSA 1964 DTaP/Tdap/Td Vaccine (1 - Tdap) 1975 Hepatitis B Screening 1982 Regular Well Visit/Exam 18-64 1982 Pneumococcal vaccine <65 (1 of 2 - PCV) 1983 Zoster Vaccine (1 of 2) 2014 Covid-19 Vaccine (2 - season) 07/23/202408/2021 Influenza Vaccine (Season Ended) 2025 Colon Cancer Screening-Colonoscopy 02/27/20342023 Colon Cancer Screening-CT Colonography Discontinued Colon Cancer Screening-DNA Stool Discontinued 02/28/20 24 Colon Cancer Screening-FIT Discontinued 02/28/2024 Colon Cancer Screening-Sigmoidoscopy Discontinued 06/2024 Medical Devices Implanted Type Area Consulting Sales Manager Device Identifier Shelf Expiration Date Model / Serial / Lot Ra Lead-09/30/20 16 Implanted:Qt y: 1 on 09/30/2016 by Yimi Carrillo Jr., MD Lead Right: Atria Medtronic Cardiac Rhythm Mgmt 5076-52 SURESCAN / [id number] / Rv Lead-09/30/20 16 Implanted:Qt y: 1 on 09/30/2016 by Yimi Carrillo Jr., MD Lead Right: Ventricle Medtronic Cardiac Rhythm Mgmt 6935M-62 / [id number] / Lv Lead- 016 Implanted:Qt y: 1 on 09/30/2016 by Yimi Carrillo Jr., MD Lead N/A: Coronary Sinus Medtronic Cardiac Rhythm Mgmt 4598-88 / [id number] / Medtronic Inc Cardiac [place] Hf 2 Chamber Df4 Inline Cnctr Is4 Ayza1ox - [id number] - [id number] Implanted:Qt y: 1 on 01/26/2023 by Yimi Carrillo Jr., MD at [facility] Left: Chest Medtronic Inc [id number] 05/19/2024 [id number] Q / [id number] / [employer] Xcela Power Port 8fr [id number] - [id number] Implanted:Qt y: 1 on 02/11/2023 at [facility] Ang[employer] Dynamics 09/27/2027 [id number] / / [id number] Explanted Type Area Consulting Sales Manager Device Identifier Shelf Expiration Date Model / Serial / Lot Biotronik Icd Generator Explanted:Qty: 1 on 01/26/2023 by Yimi Carrillo Jr., MD at [facility] Left: Chest Biotronik / [id number] / Procedures Procedure Name Priority Date/Time Associated Diagnosis Comments CT CHEST ABDOMEN W CONTRAST Schedule Routine, Read Routine (OP Routine) 01/23/2025 11:30 AM SERVICE ORDER TAKER Malignant neoplasm of upper lobe of left lung (HCC) THYROID FUNCTION CASCADE Routine 01/23/2025 11:11 AM SERVICE ORDER TAKER Malignant neoplasm of upper lobe of left lung (HCC) Other fatigue TOTAL TESTOSTERONE Routine 01/23/2025 11 :11 AM SERVICE ORDER TAKER Malignant neoplasm of upper lobe of left lung (HCC) Other fatigue EGFR Routine 01/23/2025 11:11 AM SERVICE ORDER TAKER Malignant neoplasm of upper lobe of left lung (HCC) DIFFERENTIAL AUTO Routine 01/23/2025 11: 11 AM SERVICE ORDER TAKER Malignant neoplasm of upper lobe of left lung (HCC) CBC WITH AUTO DIFFERENTIAL Routine 01/23/2025 11:11 AM SERVICE ORDER TAKER Malignant neoplasm of upper lobe of left lung (HCC) COMPREHENSIVE METABOLIC PANEL Routine 01/23/2025 11:11 AM SERVICE ORDER TAKER Malignant neoplasm of upper lobe of left lung (HCC) COLONOSCOPY Routine 02/28/2024 2:03 PM CDT from Last 3 Months or Most Recently Relevant to Health Maintenance Results * CT Chest Abdomen W Contrast (01/23/2025 11:30 AM SERVICE ORDER TAKER) Anatomical Region Laterality Modality Body N/A Computed Tomogra phy 01/26/2025 9:41 AM SERVICE ORDER TAKER Narrative 01/26/2025 10:01 AM SERVICE ORDER TAKER EXAM DESCRIPTION: CT CHEST ABDOMEN W CONTRAST REASON FOR STUDY: Restaging of lung cancer 3 month lung cancer f/u. No complaints. Hx of appy, hernia repair. TECHNIQUE: CT scan of the chest and abdomen performed with intravenous and without oral contrast using helical scanning technique with dynamic intravenous contrast injection. Reconstructed coronal and sagittal MPR images reviewed. All images stored on PACS. Automated exposure control was used as a dose optimization technique for this examination. CONTRAST TYPE/DOSE: 100mL of IOVERSOL 350 MG IODINE/ML INTRAVENOUS SYRINGE was injected via the intravenous COMPARISON: 10/24/2024 REFERENCE: Per ACR white paper recommendations, unless otherwise specified no follow-up imaging is recommended for incidental renal and adrenal lesions per consensus recommendations based on imaging criteria. Further lab evaluation could be pursued based on clinical findings. FINDINGS: CHEST LUNGS: Irregular left upper lobe paramediastinal nodular consolidation is not definitively changed. The largest component measures approximately 1.6 x 3.1 cm. A small amount of surrounding ground-glass is superiorly is not definitively changed as well (23). An adjacent 8 mm nodule within the superior segment left lower lobe is stable (23). Stable 5 mm pleural left lower lobe nodule (52). PLEURA: No pleural effusion or pneumothorax MEDIASTINUM/TEN: Subcentimeter supraclavicular lymph nodes are redemonstrated. No discrete mediastinal or hilar lymphadenopathy. HEART: The heart is normal in size. No significant effusion. Significant coronary calcification. VASCULATURE CHEST: No thoracic aortic aneurysm. AXILLA: No adenopathy. CHEST WALL: Right gynecomastia. HARDWARE/LIFELINES: Left pacemaker . Right port catheter MUSCULOSKELETAL CHEST: No suspicious lytic or sclerotic lesion. No acute fracture. ABDOMEN LIVER: Liver is normal in size. Hepatic steatosis is present. A 10 mm hypoattenuating lesion within the posterior right hemiliver, previously measured 9 mm (103). GALLBLADDER: The gallbladder is partially distended. BILE DUCTS: No gross biliary ductal dilatation. SPLEEN: Spleen is normal in size. PANCREAS: The pancreas is normal in size. No significant peripancreatic stranding or main ductal dilatation ADRENALS: Normal. KIDNEYS/URINARY TRACT: The kidneys are normal in size. Symmetric in enhancement. Mild perinephric stranding, likely scarring. Urinary bladder is not included within field of view. GI: A small hiatal hernia is present. The visualized portions of small and large bowel appear normal. PERITONEUM: No free air or ascites. No mesenteric lymphadenopathy is seen. Small fat containing umbilical/periumbilical hernia. RETROPERITONEUM: Subcentimeter retroperitoneal lymph nodes are grossly stable. VASCULATURE ABDOMEN: Portal vein is patent. Extensive atherosclerosis is seen within a nondilated aorta. Evidence of atherosclerotic narrowing of the origin of the common iliac arteries. MUSCULOSKELETAL ABDOMEN: Partially imaged is the patient's chronic sclerotic lesion within S2. Otherwise no suspicious lytic or sclerotic lesion. OTHER: No significant abnormality. IMPRESSION: 1. Grossly stable left upper lobe paramediastinal nodular consolidation and left pulmonary nodules compared to 10/24/2024. 2. No thoracic lymphadenopathy. 3. Stable to minimal increase in size of an indeterminate 10 mm right liver lesion. THIS IS AN ELECTRONICALLY VERIFIED FINAL REPORT 01/26/2025 10:01 AM - Electronically signed by Dallas Aldana M.D. AG: LEONOR Report ID: [id number] Reading Location: [id number] Procedure Note Dallas Aldana MD - 01/26/2025 EXAM DESCRIPTION: CT CHEST ABDOMEN W CONTRAST REASON FOR STUDY: Restaging of lung cancer 3 month lung cancer f/u. No complaints. Hx of appy, hernia repair. TECHNIQUE: CT scan of the chest and abdomen performed with intravenousand without oral contrast using helical scanning technique with dynamic intravenous contrast injection. Reconstructed coronal and sagittal MPRimages reviewed. All images stored on PACS. Automated exposure control wasused as a dose optimization technique for this examination. CONTRAST TYPE/DOSE: 100mL of IOVERSOL 350 MG IODINE/ML INTRAVENOUSSYRINGE was injected via the intravenous COMPARISON: 10/24/2024 REFERENCE: Per ACR white paper recommendations, unless otherwise specifiedno follow-up imaging is recommended for incidental renal and adrenal lesionsper consensus recommendations based on imaging criteria. Further labevaluation could be pursued based on clinical findings. FINDINGS: CHEST LUNGS: Irregular left upper lobe paramediastinal nodular consolidation isnot definitively changed. The largest component measures approximately 1.6 x3.1 cm. A small amount of surrounding ground-glass is superiorly is not definitively changed as well (23). An adjacent 8 mm nodule within the superior segment left lower lobe is stable (23). Stable 5 mm pleural left lower lobe nodule (52). PLEURA: No pleural effusion or pneumothorax MEDIASTINUM/TEN: Subcentimeter supraclavicular lymph nodes are redemonstrated. No discrete mediastinal or hilar lymphadenopathy. HEART: The heart is normal in size. No significant effusion.Significant coronary calcification. VASCULATURE CHEST: No thoracic aortic aneurysm. AXILLA: No adenopathy. CHEST WALL: Right gynecomastia. HARDWARE/LIFELINES: Left pacemaker . Right port catheter MUSCULOSKELETAL CHEST: No suspicious lytic or sclerotic lesion. No acute fracture. ABDOMEN LIVER: Liver is normal in size. Hepatic steatosis is present. A 10 mm hypoattenuating lesion within the posterior right hemiliver, previously measured 9 mm (103). GALLBLADDER: The gallbladder is partially distended. BILE DUCTS: No gross biliary ductal dilatation. SPLEEN: Spleen is normal in size. PANCREAS: The pancreas is normal in size. No significant peripancreatic stranding or main ductal dilatation ADRENALS: Normal. KIDNEYS/URINARY TRACT: The kidneys are normal in size. Symmetric in enhancement. Mild perinephric stranding, likely scarring. Urinarybladder is not included within field of view. GI: A small hiatal hernia is present. The visualized portions of smalland large bowel appear normal. PERITONEUM: No free air or ascites. No mesenteric lymphadenopathy isseen. Small fat containing umbilical/periumbilical hernia. RETROPERITONEUM: Subcentimeter retroperitoneal lymph nodes are grossly stable. VASCULATURE ABDOMEN: Portal vein is patent. Extensive atherosclerosis is seen within a nondilated aorta. Evidence of atherosclerotic narrowing ofthe origin of the common iliac arteries. MUSCULOSKELETAL ABDOMEN: Partially imaged is the patient's chronicsclerotic lesion within S2. Otherwise no suspicious lytic or sclerotic lesion. OTHER: No significant abnormality. IMPRESSION: 1. Grossly stable left upper lobe paramediastinal nodular consolidationand left pulmonary nodules compared to 10/24/2024. 2. No thoracic lymphadenopathy. 3. Stable to minimal increase in size of an indeterminate 10 mm rightliver lesion. THIS IS AN ELECTRONICALLY VERIFIED FINAL REPORT 01/26/2025 10:01 AM - Electronically signed by Dallas Aldana M.D. AG: LEONOR Report ID: [id number] Reading Location: [id number] Skyler Sun MD PhD IMG CT PROCEDURES Fin al Result * eGFR (01/23/2025 11:11 AM SERVICE ORDER TAKER) eGFR >90 >=60 mL/min/1. 73 m2 Comment: Interpretive Data Reference Interval Normal >/= 90 mL/min/1.73m2 Mildly decreased* 60 - 89 mL/min/1.73m2 Mildly to moderately decreased 45 - 59 mL/min/1.73m2 Moderately to severely decreased 30 - 44 mL/min/1.73m2 Severely decreased 15 - 29 mL/min/1.73m2 Kidney Failure < 15 mL/min/1.73m2 *Relative to young adult level Estimated glomerular filtration rate is determined by the 2020 CKD-EPI equation recommended by the National Kid[employer] Foundation (A Unifying Approach to GFR Estimation: Recommendations of the NKF-ASK Task Force on Reassessing the Inclusion of Race in Diagnosing Kidney Disease, JASN 2020). The CKD-EPI equation should not be used for patients with unstable renal function and has not been validated in children and those over 70. Current interpretive data was last reviewed 2021. Testing performed by: [address] [id number] Blood 01/23/2025 11:1 1 AM SERVICE ORDER TAKER 01/23/2025 11:13 AM SERVICE ORDER TAKER us Skyler Sun MD PhD LAB BLOOD ORDERABLES Final Result [facility] [address] [facility] [place] [address] * Differential, auto (01/23/2025 11:11 AM SERVICE ORDER TAKER) Neutrophil abs 6.2 1.5 - 6.5 K/cumm Comment:Testing performed by : [address] [address] Imm gran abs 0.0 0.0 - 0.1 K/cumm [facility]MPERATRIZ Comment:Testing performed by : [address] [address] Lymphocyte abs 1.4 0.8 - 3.3 K/cumm EMPERATRIZ Comment:Testing performed by : [address] [address] Monocyte abs 0.6 0.2 - 0.8 K/cumm EMPERATRIZ Comment:Testing performed by : [address] [address] Eosinophil abs 0.3 0.0 - 0.5 K/cumm EMPERATRIZ Comment:Testing performed by : [address] [address] Basophil abs 0.1 0.0 - 0.1 K/cumm EMPERATRIZ Comment:Testing performed by : [address] [address] Neutrophil pct 72.7 % [facility]MPERAT[facility]Z Comment: Interpretive Data Percent cell count reference ranges are not reported, since discordance with absolute values may lead to misinterpretation of CBC data. Current Interpretive Data was last revised on 2018. Testing performed by: [address] [address] Imm gran pct 0.4 % [facility] Comment: Interpretive Data Percent cell count reference ranges are not reported, since discordance with absolute values may lead to misinterpretation of CBC data. Current Interpretive Data was last revised on 2018. Testing performed by: [address] [address] Lymphocyte pct 15.9 % [facility] Comment: Interpretive Data Percent cell count reference ranges are not reported, since discordance with absolute values may lead to misinterpretation of CBC data. Current Interpretive Data was last revised on 2018. Testing performed by: [address] [address] Monocyte pct 6.5 % [facility] Comment: Interpretive Data Percent cell count reference ranges are not reported, since discordance with absolute values may lead to misinterpretation of CBC data. Current Interpretive Data was last revised on 2018. Testing performed by: [address] [address] Eosinophil pct 3.9 % [facility] Comment: Interpretive Data Percent cell count reference ranges are not reported, since discordance with absolute values may lead to misinterpretation of CBC data. Current Interpretive Data was last revised on 2018. Testing performed by: [address] [address] Basophil pct 0.6 % [facility] Comment: Interpretive Data Percent cell count reference ranges are not reported, since discordance with absolute values may lead to misinterpretation of CBC data. Current Interpretive Data was last revised on 2018. Testing performed by: [address] [address] Blood 01/23/2025 11:1 1 AM SERVICE ORDER TAKER 01/23/2025 11:13 AM SERVICE ORDER TAKER us Skyler Sun MD PhD LAB BLOOD ORDERABLES Final Result [facility] [address] [facility] Department [place] [address] * Thyroid Function [place] (01/23/2025 11:11 AM SERVICE ORDER TAKER) Pathologist [facility] TSH 1.23 0.30 - 4.20 mcIUnit/mL Comment:Testing performed by : [address] [address] Blood 01/23/2025 11:1 1 AM SERVICE ORDER TAKER 01/23/2025 4:19 PM SERVICE ORDER TAKER us Skyler Sun MD PhD LAB BLOOD ORDERABLES Final Result [facility] [address] [facility] [place] [address] * CBC with auto differential (01/23/2025 11:11 AM SERVICE ORDER TAKER) [facility] WBC 8.5 3.8 - 9.9 K/cumm Comment:Testing performed by : [address] [address] Hgb 14.9 13.0 - 17.5 g/dL EMPERATRIZ Comment:Testing performed by : [address] [address] Hct 42.9 38.9 - 50.3 % [facility]Z Comment:Testing performed by : [address] [address] Plt 199 150 - 400 K/cumm EMPERATRIZ Comment:Testing performed by : [address] [address] MPV 10.0 9.1 - 12.3 fL [facility]MP[facility]Z Comment:Testing performed by : [address] [address] RBC 4.62 4.30 - 5.80 M/cumm EMPERATRIZ Comment:Testing performed by : [address] [address] MCV 92.9 81.3 - 96.4 fL [facility]MP[facility] Comment:Testing performed by : [address] [address] MCH 32.3 27.1 - 33.3 pg EMPERATRIZ Comment:Testing performed by : [address] [address] MCHC 34.7 32.3 - 35.7 g/dL [facility] SCOTT Comment:Testing performed by : [address], [address] RDW CV 13.1 11.1 - 14.9 % [facility]MP[facility] SCOTT Comment:Testing performed by : [address], [address] RDW SD 44.6 35.7 - 48.1 fL [facility]MP[facility] SCOTT Comment:Testing performed by : [address], [address] NRBC abs 0.00 0.00 - 0.01 K/cumm [facility] SCOTT Comment:Testing performed by : [address], [address] Blood 01/23/2025 11:1 1 AM SERVICE ORDER TAKER 01/23/2025 11:13 AM SERVICE ORDER TAKER Skyler Sun MD PhD LAB BLOOD ORDERABLES Final Result Performing Organization Address [facility] Co de Phone Number [place] [phone] [facility] [address] * Total testosterone (01/23/2025 11:11 AM SERVICE ORDER TAKER) Pathologist [facility] Testosterone 729.00 193.00 - 740.00 ng/dL Blood 01/23/2025 11:1 1 AM SERVICE ORDER TAKER 01/23/2025 5:07 PM SERVICE ORDER TAKER Skyler Sun MD PhD LAB BLOOD ORDERABLES Final Result Performing Organization Address City/[facility] de Phone Number [address] [place] [address] * (ABNORMAL) Comprehensive metabolic panel (01/23/2025 11:11 AM SERVICE ORDER TAKER) Sodium 136 135 - 145 mmol/L Comment:Testing performed by : [address], [address] Potassium, pl 4.4 3.3 - 4.9 mmol/L [facility]MP[facility] SCOTT Comment:Testing performed by : [address], [place]., [address] Chloride 100 97 - 110 mmol/L EMPERATRIZ Comment:Testing performed by : [address], [place]., [address] CO2 25 22 - 32 mmol/L EMPERATRIZ Comment:Testing performed by : [address], [place]., [address] Anion gap 11 2 - 15 mmol/L EMPERATRIZ Comment:Testing performed by : [address], [place]., [address] BUN 13 6 - 25 mg/dL EMPERATRIZ Comment:Testing performed by : [address], [place]., [address] Creatinine 0.60(L) 0.80 - 1.30 mg/dL EMPERATRIZ Comment:Testing performed by : [address], [place]., [address] Glucose 110 70 - 199 mg/dL EMPERATRIZ Comment: Interpretive Data Fasting glucose >/= 126 mg/dl is diagnostic for diabetes. Fasting is defined as no caloric intake for at least 8 hours. Fasting glucose between 100 mg/dl to 125 mg/dl is diagnostic of prediabetes. In a patient with classic symptoms of hyperglycemia or hyperglycemic crisis, a random glucose >/= 200 mg/dl is diagnostic for diabetes. In the absence of unequivocal hyperglycemia, results should be confirmed by repeat testing. The classification and Diagnosis of Diabetes Diabetes Care 2021; 46: S19-S40. Current interpretive data was last revised 2022. Testing performed by: [address] [address] Calcium 9.5 8.5 - 10.3 mg/dL EMPERATRIZ Comment:Testing performed by : [address] [address] Bilirubin, total 0.3 0.1 - 1.2 mg/dL EMPERATRIZ Comment:Testing performed by : [address], [place]., [address] Protein, pl 6.8 6.5 - 8.5 g/dL EMPERATRIZ Comment:Testing performed by : [address], [facility] [place]., [address] Albumin 4.1 3.5 - 5.0 g/dL [facility]MPERATRIZ SCOTT Comment:Testing performed by : [address] [address] Alk phos 77 40 - 130 Units/L EMPERATRIZ SCOTT Comment:Testing performed by : [address], [address] ALT 20 7 - 55 Units/L EMPERATRIZ Comment:Testing performed by : [address], [address] AST 15 10 - 50 Units/L EMPERATRIZ Comment:Testing performed by : [address], [address] Blood 01/23/2025 11:1 1 AM SERVICE ORDER TAKER 01/23/2025 11:13 AM SERVICE ORDER TAKER Skyler Sun MD PhD LAB BLOOD ORDERABLES Final Result Performing Organization Address City/State/[facility] Co de Phone Number [facility] [place] [address] * Colonoscopy (02/28/2024 2:03 PM CDT) Anatomical Region Laterality Modality Other Historical Provider ENDOSCOPY PROCEDURES Elissa l Result from Last 3 Months or Most Recently Relevant to Health Maintenance Insurance [facility] MEDICARE ADVANTAGE [place] [facility] MEDICARE ADVANTAGE [facility] MEDICARE ADVANTAGE Advance Directives For more information, please contact: [phone] * Full Code (Latest Code Status on File) Date Activated Date Inactivated Comments 02/11/2023 9:06 AM 02/12/2023 4:38 AM Care 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 Relationship Specialty Start Date End Date Gordon Argueta MD PCP - General 01/19/13 Tashi Duran MD Consulting Physician Pulmonary Disease 12/15/22 Skyler Sun MD PhD [address] [facility] MEDICAL ONCOLOGY, [facility] [address] [place], [place] [id number] Medical Oncologist/Infirmary Attendant Medical Oncology 01/28/23 Yimi Carrillo Jr., MD [address] [place] [address] Revenue Stamp Clerk Cardiovascular Disease 01/28/23 [place] [address] [facility] [address] [place] [address] Referring Physician Pulmonary Disease 01/28/23 Shira Nichole MD [facility]8 [facility] [address] [place], [place] [id number] Radiation Oncologist Radiation Oncology 11/14/24
--- OUTSIDE RECORDS SUMMARY | 2025-03-21 15:44 | XMS_ITS | Encounter Summary ---
Author Organization [facility] Address [address] [place] [address] Phone Care Team Providers Care Light Technician Name Role Phone Gordon Argueta MD Primary Care Provider + [phone] Margaret Greene MD Unavailable [phone] Tashi Duran MD Unavailable [phone] Skyler Sun MD PhD Unavailable [phone] Naveed Vance MD Unavailable [phone] Lorena Coronado MD, Yimi PChris Unavailable [phone] William Marte MD Unavailable [phone] Shira Nichole MD Unavailable [phone] Shira Nichole MD Unavailable [phone] Encounter Details Date Type Department Care Team (Late st Contact Info) Description 01/14/2017 Orders Only [facility] ProviderAngela MD [address] [place] [id number] Social History Tobacco Use Types Packs/Day Years Used Date Smoking Tobacco: Never Assessed Sex and Gender Information Value Date Recorded Sex Assigned at Not on file 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 us Historical Provider [facility] Final Result documented in this encounter Visit Diagnoses Not on filedocumented in this encounter Care Teams Light Technician Relationship Specialty Start Date End Date Gordon Argueta MD PCP - General 01/19/13 Margaret Greene MD [address] [place] [address] Consulting Physician Pulmonary Disease 12/15/22 3 Tashi Duran MD [address] [place] [id number] Consulting Physician Pulmonary Disease 12/15/22 Skyler Sun MD PhD [address] [place] [address] MEDICAL ONCOLOGY, [place] [address] Medical Oncologist/Preschool Substitute Teacher Medical Oncology 01/28/23 Naveed Vance MD [address] [place] [address] MEDICAL ONCOLOGY, [address] [id number] Consulting Physician Thoracic Surgery 01/28/23 02/06/23 Yimi Carrillo Jr., MD [address] [place] [id number] Dentofacial Orthopedics Dentist Cardiovascular Disease 01/28/23 [place] [address] [place] [id number] [place], [place] [id number] Referring Physician Pulmonary Disease 01/28/23 [place] [address] [facility] [address] [place] [address] Radiation Oncologist Radiation Oncology 02/10/2311/13 Shira Nichole MD [address] [address] Radiation Oncologist Radiation Oncology 11/14/24 documented as of this encounter
--- OUTSIDE RECORDS SUMMARY | 2025-03-21 15:44 | XMS_ITS | Referral Summary ---
Author Organization [facility] [address] Address [address] [place] [address] Care Team Providers [facility] Products Assembler Name Role Phone Gordon Argueta MD Primary Care Provider Tashi Duran MD Unavailable Skyler Sun MD PhD Unavailable Lorena Coronado MD, Yimi Mayer Unavailable William Marte MD Unavailable Shira Nichole MD Unavailable Encounters Date Type Department Care Team Description 01/23/2025 10:45 AM AUDIOVISUAL TECH Clinical Support [facility] at [address] [address] Malignant neoplasm of upper lobe of left lung (HCC); Other fatigue 01/23/2025 1:00 PM AUDIOVISUAL TECH Office Visit [facility] Oncology [address] [place] [address] [address] [place] [address] Skyler Sun MD PhD Malignant neoplasm of upper lobe of left lung (HCC) (Primary Dx); Other fatigue 01/23/2025 11:22 AM AUDIOVISUAL TECH - 01/23/2025 11:59 PM AUDIOVISUAL TECH Hospital Encounter [facility] Building [address] [place] [address] Malignant neoplasm of upper lobe of left lung (HCC) Discharge Disposition: Discharge to home or self care from Last 3 Months Allergies No known active allergies Medications ALPRAZolam [...] cyst. He underwent pulmonary function testing at [facility]. These results are still pending. On December [...] Pure hypercholesterolemia 01/15/2015 Overview (02/25/2017): Pure hypercholesterolemia Social History Tobacco Use Types Packs/Day Years [...] on file Legal Sex Male 8:49 AM AUDIOVISUAL TECH Gender Identity Not on file Sexual Orientation Not on file Last Filed Vital Signs Vital Sign Reading Time Taken Comments Blood Pressure 110/76 01/23/2025 1:14 PM AUDIOVISUAL TECH Pulse 86 01/23/2025 1:14 PM AUDIOVISUAL TECH Temperature 37 C (98.6 F) 01/23/2025 1:14 PM AUDIOVISUAL TECH Respiratory Rate 18 01/23/2025 1:14 PM AUDIOVISUAL TECH Oxygen Saturation 96% 01/23/2025 1:14 PM AUDIOVISUAL TECH Inhaled Oxygen Concentration - - Weight 91.9 kg (202 lb 9.6 oz) 01/23/2025 1:14 P M AUDIOVISUAL TECH Height 172.7 cm (5' 8 ) 01/23/2025 1:14 PM AUDIOVISUAL TECH Body Mass Index 30.81 01/23/2025 1:14 PM AUDIOVISUAL TECH Plan of Treatment Not on file Medical Devices Implanted Type Area Histology Supervisor Device Identifier Shelf Expiration Date Model / Serial / Lot Ra Lead-09/30/20 16 Implanted:Qt y: 1 on 09/30/2016 by Yimi Carrillo Jr., MD Lead Right: Atria Medtronic Cardiac Rhythm Mgmt 5076-52 SURESCAN / [id number] / Rv Lead-09/30/20 16 Implanted:Qt y: 1 on 09/30/2016 by Yimi Carrillo Jr., MD Lead Right: Ventricle Medtronic Cardiac Rhythm Mgmt 6935M-62 / [id number] / Lv Lead- 016 Implanted:Qt y: 1 on 09/30/2016 by Yimi Carrillo Jr., MD Lead N/A: Coronary Sinus Medtronic Cardiac Rhythm Mgmt 4598-88 / [id number] / Medtronic Inc Cardiac [place] Hf 2 Chamber Df4 Inline Cnctr Is4 [id number] - [id number] - [id number] Implanted:Qt y: 1 on 01/26/2023 by Yimi Carrillo Jr., MD at [facility] Left: Chest Medtronic Inc [id number] 05/19/2024 [id number] / [id number] / [employer] Xcela Power Port 8fr [id number] - [id number] Implanted:Qt y: 1 on 02/11/2023 at [facility] Ang[employer] 09/27/2027 [id number] / / [id number] Explanted Type Area Histology Supervisor Device Identifier Shelf Expiration Date Model / Serial / Lot Biotronik Icd Generator Explanted:Qty: 1 on 01/26/2023 by Yimi Carrillo Jr., MD at [facility] Left: Chest Biotronik / [id number] / Procedures Procedure Name Priority Date/Time Associated Diagnosis Comments CT CHEST ABDOMEN W CONTRAST Schedule Routine, Read Routine (OP Routine) 01/23/2025 11:30 AM AUDIOVISUAL TECH Malignant neoplasm of upper lobe of left lung (HCC) THYROID FUNCTION CASCADE Routine 01/23/2025 11:11 AM AUDIOVISUAL TECH Malignant neoplasm of upper lobe of left lung (HCC) Other fatigue TOTAL TESTOSTERONE Routine 01/23/2025 11 :11 AM AUDIOVISUAL TECH Malignant neoplasm of upper lobe of left lung (HCC) Other fatigue EGFR Routine 01/23/2025 11:11 AM AUDIOVISUAL TECH Malignant neoplasm of upper lobe of left lung (HCC) DIFFERENTIAL AUTO Routine 01/23/2025 11: 11 AM AUDIOVISUAL TECH Malignant neoplasm of upper lobe of left lung (HCC) CBC WITH AUTO DIFFERENTIAL Routine 01/23/2025 11:11 AM AUDIOVISUAL TECH Malignant neoplasm of upper lobe of left lung (HCC) COMPREHENSIVE METABOLIC PANEL Routine 01/23/2025 11:11 AM AUDIOVISUAL TECH Malignant neoplasm of upper lobe of left lung (HCC) COLONOSCOPY Routine 02/28/2024 2:03 PM CDT from Last 3 Months or Most Recently Relevant to Health Maintenance Results * CT Chest Abdomen W Contrast (01/23/2025 11:30 AM AUDIOVISUAL TECH) Anatomical Region Laterality Modality Body N/A Computed Tomogra phy 01/26/2025 9:41 AM AUDIOVISUAL TECH Narrative 01/26/2025 10:01 AM AUDIOVISUAL TECH EXAM DESCRIPTION: CT CHEST ABDOMEN W CONTRAST [...] Dallas Aldana M.D. AG: LEONOR Report ID: [id number] Reading Location: [id number] Procedure Note Dallas Aldana MD - 01/26/2025 [...] Dallas Aldana M.D. AG: LEONOR Report ID: [id number] Reading Location: [id number] us Skyler uSn MD PhD IMG CT PROCEDURES Fin al Result * eGFR (01/23/2025 11:11 AM AUDIOVISUAL TECH) eGFR >90 >=60 mL/min/1. 73 m2 Comment: [...] of Race in Diagnosing Kidney Disease, JASN 202). The CKD-EPI equation should not be used for patients with unstable renal function and has not been validated in children and those over 70. Current interpretive data was last reviewed 2021. Testing performed by: [facility], [address] [place] [address]., [address] Blood 01/23/2025 11:1 1 AM AUDIOVISUAL TECH 01/23/2025 11:13 AM AUDIOVISUAL TECH us Skyler Sun MD PhD LAB BLOOD ORDERABLES Final Result EMPERAT[facility]Z [address] [facility] Department [place] [address] * Differential, auto (01/23/2025 11:11 AM AUDIOVISUAL TECH) Neutrophil abs 6.2 1.5 - 6.5 K/cumm Comment:Testing performed by : [address] [address] Imm gran abs 0.0 0.0 - 0.1 K/cumm EMPERATRIZ Comment:Testing performed by : [address] [address] Lymphocyte abs 1.4 0.8 - 3.3 K/cumm EMPERATRIZ Comment:Testing performed by : [address] [address] Monocyte abs 0.6 0.2 - 0.8 K/cumm EMPERATRIZ Comment:Testing performed by : [address] [address] Eosinophil abs 0.3 0.0 - 0.5 K/cumm EMPERATRIZ Comment:Testing performed by : [address] [address] Basophil abs 0.1 0.0 - 0.1 K/cumm EMPERATRIZ Comment:Testing performed by : [address] [address] Neutrophil pct 72.7 % EMPERATRIZ Comment: Interpretive Data Percent cell count reference ranges are not reported, since discordance with absolute values may lead to misinterpretation of CBC data. Current Interpretive Data was last revised on 2018. Testing performed by: [address] [address] Imm gran pct 0.4 % CERNER Comment: Interpretive Data Percent cell count reference ranges are not reported, since discordance with absolute values may lead to misinterpretation of CBC data. Current Interpretive Data was last revised on 2018. Testing performed by: [address] [address] Lymphocyte pct 15.9 % CERNER Comment: Interpretive Data Percent cell count reference ranges are not reported, since discordance with absolute values may lead to misinterpretation of CBC data. Current Interpretive Data was last revised on 2018. Testing performed by: [address] [address] Monocyte pct 6.5 % [facility] Comment: Interpretive Data Percent cell count reference ranges are not reported, since discordance with absolute values may lead to misinterpretation of CBC data. Current Interpretive Data was last revised on 2018. Testing performed by: [address] [address] Eosinophil pct 3.9 % [facility] Comment: Interpretive Data Percent cell count reference ranges are not reported, since discordance with absolute values may lead to misinterpretation of CBC data. Current Interpretive Data was last revised on 2018. Testing performed by: [address] [address] Basophil pct 0.6 % [facility] Comment: Interpretive Data Percent cell count reference ranges are not reported, since discordance with absolute values may lead to misinterpretation of CBC data. Current Interpretive Data was last revised on 2018. Testing performed by: [address] [address] Blood 01/23/2025 11:1 1 AM AUDIOVISUAL TECH 01/23/2025 11:13 AM AUDIOVISUAL TECH us Skyler Sun MD PhD LAB BLOOD ORDERABLES Final Result [facility] [address] [facility] [place] [address] * Thyroid Function [place] (01/23/2025 11:11 AM AUDIOVISUAL TECH) [facility] TSH 1.23 0.30 - 4.20 mcIUnit/mL Comment:Testing performed by : [address] [address] Blood 01/23/2025 11:1 1 AM AUDIOVISUAL TECH 01/23/2025 4:19 PM AUDIOVISUAL TECH us Skyler Sun MD PhD LAB BLOOD ORDERABLES Final Result Performing Organization Address [facility] Co de Phone Number E[facility] [address] [facility] [place] [address] * CBC with auto differential (01/23/2025 11:11 AM AUDIOVISUAL TECH) [facility] WBC 8.5 3.8 - 9.9 K/cumm Comment:Testing performed by : [address] [address] Hgb 14.9 13.0 - 17.5 g/dL EMPERATRIZ SCOTT Comment:Testing performed by : [address] [address] Hct 42.9 38.9 - 50.3 % EMPERAT[facility]Z SCOTT Comment:Testing performed by : [address] [address] Plt 199 150 - 400 K/cumm EMPERATRIZ SCOTT Comment:Testing performed by : [address] [address] MPV 10.0 9.1 - 12.3 fL EMPERAT[facility]Z SCOTT Comment:Testing performed by : [address] [address] RBC 4.62 4.30 - 5.80 M/cumm EMPERATRIZ SCOTT Comment:Testing performed by : [address] [address] MCV 92.9 81.3 - 96.4 fL EMPERAT[facility]Z CSOTT Comment:Testing performed by : [address] [address] MCH 32.3 27.1 - 33.3 pg EMPERATRIZ SCOTT Comment:Testing performed by : [address] [address] MCHC 34.7 32.3 - 35.7 g/dL EMPERAT[facility]Z SCOTT Comment:Testing performed by : [address], [address] RDW CV 13.1 11.1 - 14.9 % EMPERATRIZ SCOTT Comment:Testing performed by : [address], [address] RDW SD 44.6 35.7 - 48.1 fL EMPERAT[facility]Z SCOTT Comment:Testing performed by : [address], [address] NRBC abs 0.00 0.00 - 0.01 K/cumm EMPER[facility]Z SCOTT Comment:Testing performed by : [address], [address] Blood 01/23/2025 11:1 1 AM AUDIOVISUAL TECH 01/23/2025 11:13 AM AUDIOVISUAL TECH us Skyler Sun MD PhD LAB BLOOD ORDERABLES Final Result Performing Organization Address [facility] Co de Phone Number [address] [place] [address] * Total testosterone (01/23/2025 11:11 AM AUDIOVISUAL TECH) Pathologist [facility] Testosterone 729.00 193.00 - 740.00 ng/dL Blood 01/23/2025 11:1 1 AM AUDIOVISUAL TECH 01/23/2025 5:07 PM AUDIOVISUAL TECH Skyler Sun MD PhD LAB BLOOD ORDERABLES Final Result Performing Organization Address [facility] Co de Phone Number [address] [address] * (ABNORMAL) Comprehensive metabolic panel (01/23/2025 11:11 AM AUDIOVISUAL TECH) Sodium 136 135 - 145 mmol/L Comment:Testing performed by : [facility], [address] [place] [address]., [address] Potassium, pl 4.4 3.3 - 4.9 mmol/L EMPERATRIZ Comment:Testing performed by : [address], [place]., [address] Chloride 100 97 - 110 mmol/L EMPERATRIZ Comment:Testing performed by : [address], [place]., [address] CO2 25 22 - 32 mmol/L EMPERATRIZ Comment:Testing performed by : [address], [place]., [address] Anion gap 11 2 - 15 mmol/L EMPERATRIZ Comment:Testing performed by : [address], [place]., [address] BUN 13 6 - 25 mg/dL EMPERATRIZ Comment:Testing performed by : [address], [place]., [address] Creatinine 0.60(L) 0.80 - 1.30 mg/dL EMPERATRIZ Comment:Testing performed by : [address], [place]., [address] Glucose 110 70 - 199 mg/dL EMPERATRIZ [...] classification and Diagnosis of Diabetes Diabetes Care 202; 46: S19-S40. Current interpretive data was last revised 2022. Testing performed by: [address] [address] Calcium 9.5 8.5 - 10.3 mg/dL EMPERATRIZ Comment:Testing performed by : [address], [place]., [address] Bilirubin, total 0.3 0.1 - 1.2 mg/dL EMPERATRIZ Comment:Testing performed by : [address] [address] Protein, pl 6.8 6.5 - 8.5 g/dL EMPERATRIZ SCOTT Comment:Testing performed by : [address] [address] Albumin 4.1 3.5 - 5.0 g/dL EMPERATRIZ SCOTT Comment:Testing performed by : [address] [address] Alk phos 77 40 - 130 Units/L EMPERATRIZ Comment:Testing performed by : [address] [address] ALT 20 7 - 55 Units/L EMPERATRIZ Comment:Testing performed by : [address] [address] AST 15 10 - 50 Units/L EMPERATRIZ Comment:Testing performed by : [address] [address] Blood 01/23/2025 11:1 1 AM AUDIOVISUAL TECH 01/23/2025 11:13 AM AUDIOVISUAL TECH Skyler Sun MD PhD LAB BLOOD ORDERABLES Final Result [facility] [address] [facility] Department [place] [address] * Colonoscopy (02/28/2024 2:03 PM CDT) Anatomical Region Laterality Modality Other Historical Provider ENDOSCOPY PROCEDURES Elissa l Result from Last 3 Months or Most Recently Relevant to Health Maintenance Insurance [facility] MEDICARE ADVANTAGE IDPA [facility] MEDICARE ADVANTAGE [facility] MEDICARE ADVANTAGE Advance Directives For more information, please contact: [phone] * Full Code (Latest Code Status on File) Date Activated Date Inactivated Comments 02/11/2023 9:06 AM 02/12/2023 4:38 AM Care Teams [facility] Products Assembler Relationship Specialty Start Date End Date Gordon Argueta MD PCP - General 01/19/13 Tashi Duran MD Consulting Physician Pulmonary Disease 12/15/22 Skyler Sun MD PhD [address] [place] [address] [facility] [address] [place] [address] Medical Oncologist/Child Care Director Medical Oncology 01/28/23 Yiim Carrillo Jr., MD [address] [place] [address] Car Rental Service Attendant Cardiovascular Disease 01/28/23 [place] [address] [facility] [address] [place] [address] Referring Physician Pulmonary Disease 01/28/23 Shira Nichole MD [address] [facility] [address] [place] [address] Radiation Oncologist Radiation Oncology 11/14/24
--- OUTSIDE RECORDS SUMMARY | 2025-03-21 15:44 | XMS_ITS | Encounter Summary ---
Author Organization [facility] Address [address] [place] [address] Phone Care Team Providers Care Finance Admin Name Role Phone Gordon Argueta MD Primary Care Provider + [phone] Margaret Greene MD Unavailable [phone] Tashi Duran MD Unavailable [phone] Skyler Sun MD PhD Unavailable [phone] Naveed Vance MD Unavailable [phone] Lorena Coronado MD, Yimi PChris Unavailable [phone] William Marte MD Unavailable [phone] Shira Nichole MD Unavailable [phone] Shira Nichole MD Unavailable [phone] Encounter Details Date Type Department Care Team (Late st Contact Info) Description 01/09/2017 Orders Only [facility] IM CAR CLINCONV ProviderAngela MD [address] [place] [address] Social History Tobacco Use Types Packs/Day Years Used Date Smoking Tobacco: Never Assessed Sex and Gender Information Value Date Recorded Sex Assigned at Not on file 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 us Historical Provider CV CARDIAC SERVICES PROCE DURES Final Result * CARDIOLOGY REPORT (01/09/2017) Anatomical Region Laterality Modality Other Narrative 01/09/2017 Ordered by an unspecified provider. Historical Provider CV CARDIAC SERVICES PROCE DURES Final Result documented in this encounter Visit Diagnoses Not on filedocumented in this encounter Care Teams Finance Admin Relationship Specialty Start Date End Date Gordon Argueta MD PCP - General 01/19/13 Margaret Greene MD [address] [place] [address] Consulting Physician Pulmonary Disease 12/15/22 32 3 Tashi Duran MD [address] [place] [id number] Consulting Physician Pulmonary Disease 12/15/22 Skyler Sun MD PhD [address] [place] [address] MEDICAL ONCOLOGY, [address] [id number] Medical Oncologist/Hand Developer Medical Oncology 01/28/23 Naveed Vance MD [address] [place] [address] MEDICAL ONCOLOGY, [address] [address] Consulting Physician Thoracic Surgery 01/28/23 02/06/23 Yimi Carrillo Jr., MD [address] [place] [address] Health Aide Cardiovascular Disease 01/28/23 [place] [id number] [place] [address] Referring Physician Pulmonary Disease 01/28/23 [place] [address] [id number] [place] [address] Radiation Oncologist Radiation Oncology 02/10/2311/13 Shira Nichole MD [address] [address] Radiation Oncologist Radiation Oncology 11/14/24 documented as of this encounter
--- OUTSIDE RECORDS SUMMARY | 2025-03-21 15:44 | XMS_ITS | Clinical Summary ---
Author Organization [facility] Address [address] [place] [address] Care Team Providers Care Oncology Navigator Name Role Phone Gordon Argueta MD Primary Care Provider [phone] [facility],non-owned Affiliates and Associated Physician Practices is amultiple site organization consisting of ambulatory clinics and hospital sitesin [place], [place], [place] and [place]. This disclosure is being madepursuant to the Care Everywhere program and may not contain all information available regarding this patient. Last updated 18.[facility] Allergies No known active allergies Medications * Be aware that medications may not be up to date on this document. Alwaysverify current medications with the patient. HYDROcodone-ac etaminophen (NORCO) 10-325 MG tablet TK 1 T PO Q 8 H PRN P 9 Active ALPRAZolam (XANAX) 1 MG tablet Take 1 (one) tablet by mouth 9 Active lisinopril (PRINIVIL; ZESTRIL) 10 MG tablet Take 1 (one) tablet by mouth at bedtime Active furosemide (LASIX) 20 MG tablet Take 1 (one) tablet by mouth once daily Active carvedilol (COREG) 12.5 MG tablet Take 1 (one) tablet by mouth 2 times daily with morning and evening meal Active spironolactone (ALDACTONE) 25 MG tablet Take 1 (one) tablet by mouth once daily Active simvastatin (ZOCOR) 40 MG tablet Take 1 (one) tablet by mouth at bedtime Active aspirin (ASPIRIN) 81 MG tablet Take 1 (one) tablet by mouth once daily Active fexofenadine (EMMY ALLERGY) 180 MG tablet Take 1 (one) tablet by mouth once daily Active Oxymetazoline HCl (VICKS SINEX NA) [place] 1 spray into the nose 3 times daily Active atorvastatin (LIPITOR) 80 MG tablet Take 1 (one) tablet by mouth once daily 0 Active fluticasone propionate (FLONASE) 50 MCG/ACT nasal spray [place] 2 (two) sprays into each nostril once daily 48 g 4 1 Active Additional Information Patient not taking.Reported on 03/14/2024 omeprazole (PriLOSEC) 40 MG capsule Take 1 (one) capsule by mouth once daily 4 Active esomeprazole (NexIUM) 40 MG capsule Take 1 (one) capsule by mouth once daily 4 Active Repatha SureClick 140 MG/ML auto-injector Inject 140 (one hundred forty) mg subcutaneously every 14 days 4 Active nicotine (Nicoderm CQ) 21 MG/24HR patch Apply 1 (one) patch to skin once daily 4 Active Cholecalcifero l (Vitamin D3) 1000 units CAPS Take 1 capsule by mouth once daily Active VITAMIN A PO Take 1 capsule by mouth once daily Active fluconazole (Diflucan) 150 MG tablet Take 1 (one) tablet by mouth once daily 30 tablet 4 Active Active Problems Problem Noted Date Diagnosed Date Malignant neoplasm of upper lobe of left lung 01/07/2024 Recurrent right inguinal hernia 12/04/2019 Dyslipidemia 04/05/2019 Congestive heart failure 09/30/2016 Arteriosclerosis of coronary artery 09/30/2016 AICD (automatic cardioverter/defibrillator) pres ent 09/30/2016 01/07/2024 Chronic systolic heart failure 03/19/2015 0 01/07/2024 Generalized ischemic myocardial dysfunction 02/2101/07/2024 Primary cardiomyopathy 01/15/2015 Overview (12/11/2020): Primary cardiomyopathy Pure hypercholesterolemia 01/15/2015 Overview (12/11/2020): Pure hypercholesterolemia Immunizations Immunization Administration Dates Next Due INFLUENZA VACCINE, CELL CULT URE, QUADR. (FLUCELVAX QUADRIVALENT; 6MO+) (CCIIV4) 09/02/2019 INFLUENZA VACCINE, QUADR. (F LUZONE; FLULAVAL; FLUARIX; AFLURIA QUADRIVALENT; 6MO+), 0.5 ML (IIV4) 09/10/2020 Family History Medical History Relation Name Comments Other Other Non-contributor y Relation Name Status Comments Other Social History Tobacco Use Types Packs/Day Years Used Date Smoking Tobacco: Every Day Cigarettes Smokeless Tobacco: Never Tobacco Cessation:Ready to Q uit: Not Asked; Counseling Given: Not Answered Alcohol Use Standard Drinks/Week Comments Yes 0 (1 standard drink = 0.6 oz pur e alcohol) occassionally Sex and Gender Information Value Date Recorded Sex Assigned at Not on file Legal Sex Male 9:11 AM CDT Gender Identity Not on file Sexual Orientation Not on file Last Filed Vital Signs Vital Sign Reading Time Taken Comments Blood Pressure 129/62 05/10/2024 11:11 AM CDT Pulse 79 05/10/2024 11:11 AM CDT Temperature 36.8 C (98.3 F) 05/10/2024 11:11 AM CDT Respiratory Rate 18 05/10/2024 11:11 AM CDT Oxygen Saturation 100% 05/10/2024 11:11 AM CDT Inhaled Oxygen Concentration - - Weight 91.6 kg (202 lb) 05/10/2024 11:11 AM CDT Height 175.3 cm (5' 9 ) 05/10/2024 11:11 AM CDT Body Mass Index 29.83 05/10/2024 11:11 AM CDT Plan of Treatment Health Maintenance Due Date Last Done Comments COLOGUARD (AGES 45-75) - COL ON CA SCREENING [address] COLONOGRAPHY - COLON CA SCREENING 1964 FIT - COLON CA SCREENING 1964 FLEX SIG - COLON CA SCREENING 1964 HIV SCREENING 1979 HEPATITIS C SCREENING 09/04/1982 DTAP/TDAP/TD VACCINES (1 - Tdap) 1983 PNEUMOCOCCAL VACCINE 50+ (1 of 2 - PCV) 1983 ZOSTER VACCINE (1 of 2) 2014 SCREENING FOR DIABETES 01/07/2024 12/04/2019 COVID-19 VACCINE (1 - 2023-2 5 season) 2024 Respiratory Syncytial Virus (RSV) Vaccine Pt: or over 60 yrs (1 - Risk 60-74 years 1-dose series) 2024 DEPRESSION SCREENING 11/22/2024 MEDICARE AWV CALENDAR YEAR 2024 INFLUENZA VACCINE (Season Ended) 2025 09/10/2020, 09/02/2019 COLONOSCOPY - COLON CA SCREENING 02/27/2034 02/28/2024 Colorectal Cancer Screening 02/27/2034 HEPATITIS B VACCINE Aged Out No longe r eligible based on patient's age to complete this topic HIB VACCINE Aged Out No longer eligi ble based on patient's age to complete this topic HPV VACCINE Aged Out No longer eligi ble based on patient's age to complete this topic MENINGOCOCCAL (Group B) VACCINE SHARED DECISION-MAKING Aged Out No longer eligible based on patient's age to complete this topic MENINGOCOCCAL GROUPS A/C/Y/W VACCINE Aged Out No longer eligible b ased on patient's age to complete this topic Medical Devices Implanted Type Area Sensitized Paper Tester Device Identifier Shelf Expiration Date Model / Serial / Lot Plug Srg 1.6in Groin Mfl Nabsb Prfx Implanted:Qty: 1 on 12/04/2019 by David Lugo MD at [facility] [employer] 12/19/2023 [id number] / / [id number] Procedures Procedure Name Priority Date/Time Associated Diagnosis Comments BASIC METABOLIC PANEL (CALCIUM TOTAL) STAT 12/04/2019 6:04 AM [facility] Preop examination from Last 3 Months or Most Recently Relevant to Health Maintenance Results * (ABNORMAL) BASIC METABOLIC PANEL (CALCIUM TOTAL) (12/04/2019 6:04 AM [facility]) Glucose 111(H) 70 - 105 mg/dL 12/04/2019 6:41 AM [facility] Sodium 138 136 - 145 mmol/L 12/04/2019 6:41 AM [facility] Potassium 4.1 3.5 - 4.7 mmol/L 12/04/2019 6:41 AM [facility] Chloride 105 98 - 107 mmol/L 12/04/2019 6:41 AM [facility] CO2 22(L) 23 - 31 mmol/L 12/04/2019 6:41 AM [facility] Calcium 9.2 8.4 - 10.4 mg/dL 12/04/2019 6:41 AM [facility] Anion Gap 11 8 - 16 mmol/L 12/04/2019 6:41 AM [facility] BUN 14 8.4 - 25.7 mg/dL 12/04/2019 6:41 AM [facility] Creatinine 0.70(L) 0.72 - 1.25 mg/dL 12/04/2019 6:41 AM [facility] eGFR by MDRD >60 >60 mL/min/1.7 3m2 12/04/2019 6:41 AM [facility] eGFR by MDRD >60 >60 mL/min/1.7 3m2 12/04/2019 6:41 AM [facility] Blood BLOOD SPECIMEN / Unknown Venipuncture / Unknown 12/04/2019 6:04 AM [facility] 12/04/2019 6:17 AM [facility] Shira Duke DO LAB - CHEMISTRY ORDERABLES Elissa duque Result Performing Organization Address City/State/[facility] Co de Phone Number [facility] [address] [place] [address] from Last 3 Months or Most Recently Relevant to Health Maintenance Insurance [facility] MANAGED MEDICARE ADV [facility] MANAGED MEDICARE ADV MEDICAID - [place] MED[place] [facility] MANAGED MEDICARE ADV MEDICAID [place] [facility] MANAGED MEDICARE ADV MEDICAID [place] - [place] [facility] MANAGED MEDICARE ADV Care Teams Oncology Navigator Relationship Specialty Start Date End Date Gordon Argueta MD [address] [place] [address] PCP - General Family Medicine 11/09/19
--- OUTSIDE RECORDS SUMMARY | 2025-03-21 15:44 | XMS_ITS | CONTINUITY OF CARE DOCUMENT ---
Author Name patricia gomez Address Unknown Organization [facility] Address [address] [facility] [address] [place] [address] Phone [phone] Care Team Providers Care Manager Procurement Name Role Phone Lorena MARINO, Yimi Unavailable [phone] JOSEPH MARINO, RUTH F Unavailable [phone] JOSEPH MARINO RUTH F Unavailable PROBLEMS Condition Status Date Provider Notes Congestive heart failure active Soren Beach MD Cardiomyopathy active Soren Beach MD CAD active Soren Beach MD BiV AICD - MEDTRONIC/Gen eliezer nge Biotronik ICD 11/04/20/ Gen change Medtronic BiV ICD 01/26/23 ( MRI Safe) active Coreen Barrow ran Tobacco abuse active Soren Beach MD Shortness of breath active Donnie Molina rg Hemorrhoids active Soren Beach MD Fatigue active Soren Beach MD Hypercholesterolemia active Donnie rosen Atrial fibrillation, paroxysmal active Alexy Moralest Cavitating mass in left uppe r lung lobe active Mae Ventimiglia [employer] WORK[employer] Non-small cell carcinoma of lung active Kelton Carrillo MD ENCOUNTERS Date Type Provider Location Encounter Diag nosis - In-person encounter Office Visit Yimi Carrillo MD [facility] - In-person encounter Office Visit Yimi Carrillo MD [facility] - In-person encounter Office Visit Yimi Carrillo MD [facility] - In-person encounter Office Visit Yimi Carrillo MD [facility] - In-person encounter Office Visit Yimi Carrillo MD [facility] Non-small cell carcinoma of lung - In-person encounter Office Visit Yimi Carrillo MD [facility] Cavitating mass in left upper lung lobe - In-person encounter Office Visit Taryn Bolaños MD [facility] Atrial fibrillation, paroxysmal - In-person encounter Office Visit Yimi Carrillo MD [facility] - In-person encounter Office Visit Yimi Carrillo MD [facility] - In-person encounter Office Visit Yimi Carrillo MD [facility] - In-person encounter Office Visit Yimi Carrillo MD [facility] - In-person encounter Office Visit Yimi Carrillo MD [facility] - In-person encounter Office Visit Yimi Carrillo MD [facility] - In-person encounter Office Visit Soren Beach MD [facility] HemorrhoidsFatigueHypercholesterolemia - In-person encounter Office Visit Soren Beach MD [facility] Congestive heart failureCardiomyopathyCADBiV AICD - MEDTRONIC/Gen change Biotronik ICD 11/04/20/ Gen change Medtronic BiV ICD 01/26/23 ( MRI Safe)Tobacco abuseShortness of breath VITAL SIGNS Date Observation Value Provider Body Mass Index (Ratio) 29.12 kg/m2 Shaka Carrillo MD blood pressure, diastolic 87 mm[Hg] Ying Telles blood pressure, systolic 136 mm[Hg] Lilibeth jean [place] oxygen saturation, oximetry 98 % Yoko [place]ifton pulse rate 86 /min Yoko [place] respiratory rate E&M 12 /[facility] [lb_av] Yoko [place] height E&M 70 [in_i] [facility], cuff size regular Ying holley [place] Body Mass Index (Ratio) 30.56 kg/m2 Shaka Carrillo MD blood pressure, diastolic 85 mm[Hg] Ying holley [place] blood pressure, systolic 141 mm[Hg] Lilibeth jean [place] oxygen saturation, oximetry 96 % [facility] 78 /min Yoko [place] respiratory rate E&M 12 /min [facility] E&M 213 [lb_av] [facility] E&M 70 [in_i] [facility], cuff size regular Ying holley [place] Body Mass Index (Ratio) 29.50 kg/m2 Shaka Carrillo MD blood pressure, cuff size regular Rl Ha blood pressure, diastolic 82 mm[Hg] Rl prakashaisha Ha blood pressure, systolic 138 mm[Hg] Jordan ithsanjiv Ha pulse rate 86 /min Donna Leland weight E&M 205.6 [lb_av] Donna Leland oxygen saturation, oximetry 99 % Donna Leland respiratory rate E&M 12 /min Donna Leland height E&M 70 [in_i] Donna Ha Body Mass Index (Ratio) 30.42 kg/m2 Shaka Carrillo MD blood pressure, cuff size regular Ke rri Leopoldojose blood pressure, diastolic 80 mm[Hg] Ke rri Leopoldojose blood pressure, systolic 160 mm[Hg] Adrianne Minaer oxygen saturation, oximetry 97 % Norma Mina respiratory rate E&M 12 /min Norma tabareseldjose pulse rate 84 /min Norma Alexandre [facility] weight E&M 212 [lb_av] Norma Thade [facility] height E&M 70 [in_i] Norma Baldomero [facility] Body Mass Index (Ratio) 29.41 kg/m2 Shaka Carrillo MD blood pressure, diastolic 87 mm[Hg] St lissycassi RebolledoPacheco blood pressure, systolic 143 mm[Hg] Ousmane toledo [place] oxygen saturation, oximetry 97 % Beatriz Lohman pulse rate 71 /min Beatriz Calles n weight E&M 205 [lb_av] Beatriz Rebolledoma n respiratory rate E&M 16 /min Arben micah [place] height E&M 70 [in_i] Beatriz Calles n blood pressure, cuff size large camacho [place] Body Mass Index (Ratio) 28.98 kg/m2 Shaka Carrillo MD blood pressure, diastolic 83 mm[Hg] St tanisha Lua blood pressure, systolic 146 mm[Hg] Xi Lua oxygen saturation, oximetry 96 % Vanessa Lua respiratory rate E&M 18 /min Vanessa roldan pulse rate 84 /min Vanessa Lua weight E&M 202 [lb_av] Vanessa Lua height E&M 70 [in_i] Vanessajesús Lua Body Mass Index (Ratio) 30.13 kg/m2 Dylan Bolaños MD blood pressure, diastolic 78 mm[Hg] Li nkLogic blood pressure, systolic 127 mm[Hg] Tena kLogic blood pressure, diastolic 78 mm[Hg] Ke rri Gruenenfelder blood pressure, systolic 127 mm[Hg] Ker ri Gruenenfelder blood pressure, cuff size large Ke rri Gruenenfelder oxygen saturation, oximetry 98 % Norma Tito respiratory rate E&M 16 /min Norma low pulse rate 81 /min Norma Baldomero lder weight E&M 210 [lb_av] Norma Thade lder height E&M 70 [in_i] Norma Annikanenfe er Body Mass Index (Ratio) 29.70 kg/m2 Shaka Carrillo MD blood pressure, diastolic 73 mm[Hg] St tanisha Lua blood pressure, systolic 121 mm[Hg] Xi Lua oxygen saturation, oximetry 96 % Vanessa Lua pulse rate 61 /min Vanessa Lua respiratory rate E&M 16 /min Vanessa roldan weight E&M 207 [lb_av] Vanessajesús Lua height E&M 70 [in_i] Vanessa Lua Body Mass Index (Ratio) 29.27 kg/m2 Shaka Carrillo MD blood pressure, cuff size large Ke rri Gruenenfeldjose blood pressure, diastolic 60 mm[Hg] Ke rri Gruenenfeldjose blood pressure, systolic 122 mm[Hg] Adrianne Francis oxygen saturation, oximetry 98 % Norma Oneilstefaniejose respiratory rate E&M 16 /min Norma tabareselder pulse rate 79 /min Norma Alexandre lder weight E&M 204 [lb_av] Norma Alexandre lder height E&M 70 [in_i] Norma Alexandre lder Body Mass Index (Ratio) 30.13 kg/m2 Shaka Carrillo MD blood pressure, diastolic 70 mm[Hg] Li nkLogic blood pressure, systolic 109 mm[Hg] Tena kLogic blood pressure, diastolic 70 mm[Hg] Sa ra Clements blood pressure, systolic 109 mm[Hg] Tobias a Clements oxygen saturation, oximetry 97 % Pratima Clements respiratory rate E&M 18 /min Pratima Si ms pulse rate 82 /min Pratima Lcements blood pressure, cuff size regular Sa ra Clements weight E&M 210 [lb_av] Pratima Clements height E&M 70 [in_i] Pratima Clements Body Mass Index (Ratio) 29.55 kg/m2 Shaka Carrillo MD blood pressure, diastolic 72 mm[Hg] Jesús Nolan blood pressure, systolic 118 mm[Hg] Diane Nolan pulse rate 87 /min Arianna Cates l oxygen saturation, oximetry 98 % Arianna Nolan respiratory rate E&M 16 /min Arianna Nolan blood pressure, cuff size regular Cy tramaine Nolan weight E&M 206 [lb_av] Arianna Nolanbel l height E&M 70 [in_i] Arianna Campbel l Body Mass Index (Ratio) 29.12 kg/m2 Shaka Carrillo MD blood pressure, diastolic 69 mm[Hg] Jesús Nolan blood pressure, systolic 126 mm[Hg] Diane Nolan pulse rate 84 /min Arianna duque oxygen saturation, oximetry 97 % Arianna Nolan respiratory rate E&M 16 /min Arianna Nolan blood pressure, cuff size regular Cy tramaine Nolan weight E&M 203 [lb_av] Arianna duque height E&M 70 [in_i] Arianna duque Body Mass Index (Ratio) 29.12 kg/m2 Shaka Carrillo MD blood pressure, cuff size regular Cy tramaine Nolan blood pressure, diastolic 70 mm[Hg] Jesús Nolan blood pressure, systolic 128 mm[Hg] Diane Nolan pulse rate 91 /min Arianna duque oxygen saturation, oximetry 96 % Arianna Nolan respiratory rate E&M 16 /min Arianna Nolan weight E&M 203 [lb_av] Arianna duque height E&M 70 [in_i] Arianna duque Body Mass Index (Ratio) 27.55 kg/m2 Ramos Juarez blood pressure, diastolic, left arm 80 mm [Hg] blood pressure, systolic, left arm 120 mm [Hg] blood pressure, diastolic, right arm 78 m m[Hg] blood pressure, systolic, right arm 130 m m[Hg] blood pressure, diastolic 80 mm[Hg] [facility], systolic 120 mm[Hg] Jose winn Colind[place] oxygen saturation, oximetry 98 % respiratory rate E&M 16 /min Bakari Colindres pulse rate 89 /min [place] Col[place] weight E&M 192 [lb_av] [place] Col[place] height E&M 70 [in_i] Bakari Colindres Body Mass Index (Ratio) 27.55 kg/m2 Ramos Juarez blood pressure, diastolic 70 mm[Hg] Da bashir Worth blood pressure, systolic 120 mm[Hg] Dac ia Abdoul oxygen saturation, oximetry 97 % Kimberly Abdoul respiratory rate E&M 16 /min Kimberly V oss pulse rate 84 /min Kimberly Abdoul weight E&M 192 [lb_av] Kimberly Abdoul height E&M 70 [in_i] Kimberly Abdoul ALLERGIES Allergy Name Onset Date Reaction Criticality Status STATINS Myalgia Myalgia Low Criticality acti ve RESULTS Date Observation Value Provider Reference Range Interpretation Location 8 LDL cholesterol, serum 179 mg/dL Donnie Juarez HISTORY OF MEDICATION USE Medication Status Instructions Dates Provider Indications Com ments Wegovy 0.5 mg/0.5 mL pen injector active INJECT 1 PEN INJECTOR SUBCUTANEOUS ONCE A WEEK Mae Bucio RN Wegovy 1.7 mg/0.75 mL pen injector completed Inject 1 pen injector subcutaneously once a week for 4 weeks - Mae Bucio RN Wegovy 0.5 mg/0.5 mL pen injector completed Inject 1 pen injector subcutaneously once a week for 4 weeks - Yimi Carrillo MD Wegovy 0.25 mg/0.5 mL pen injector completed Inject 1/4 mg subcutaneously once a week - Yimi Carrillo MD furosemide 20 mg tablet active TAKE 1 TABLET BY MOUTH DAILY Jacklyn Rushing spironolactone 25 mg tablet active TAKE 1 TABLET BY MOUTH DAILY Allie Ortiz lisinopril 10 mg tablet active TAKE 1 TABLET BY MOUTH DAILY Alliesanjiv Torres SureClick 140 mg/mL pen injector active Inject 1 pen injector subcutaneously once every two weeks Yimi Isaacs 140 mg/mL pen injector completed - Yimi Carrillo MD furosemide 20 mg tablet completed TAKE 1 TABLET BY MOUTH DAILY as needed - Jacklyn Parra atorvastatin 80 mg tablet completed Take 1 tablet by mouth every evening - Yimi Carrillo MD magnesium oxide 400 mg magnesium tablet completed Take 1 tablet by mouth twice a day - Norma Francis dofetilide 500 mcg capsule completed Take 1 capsule by mouth twice a day - Vanessa Lua aspirin 81 mg tablet,delayed release (DR/EC) active Take 1 tablet by mouth once a day Wilfredo Torres SureClick 140 mg/mL pen injector completed 1 pen injector every two weeks - Norma Francis spironolactone 25 mg tablet completed TAKE 1 TABLET BY MOUTH DAILY as needed - Donna Ha furosemide 20 mg tablet completed TAKE 1 TABLET BY MOUTH DAILY - Norma Francis atorvastatin 80 mg tablet completed Take 1 tablet by mouth once a day - Yimi Carrillo MD atorvastatin 40 mg tablet completed TAKE 1 TABLET BY MOUTH DAILY - Jennifer Buchanan lisinopril 10 mg tablet completed TAKE 1 TABLET BY MOUTH DAILY - Arcadio Alatorre carvedilol 12.5 mg tablet active TAKE 1 TABLET BY MOUTH TWICE DAILY [facility] NORCO 7.5-325 MG ORAL TABLET active Take 1 tablet once a day as needed Arianna Nolan CEPHALEXIN 500 MG ORAL CAPSULE completed 1 po tid x 5 days - Arianna Nolan TRAMADOL HCL 50 MG ORAL TABLET completed 1 po q 6 hours prn pain - Arianna Nolan METOPROLOL TARTRATE 100 MG ORAL TABLET completed take one tablet at 11:00 AM the morning of test. - Yimi Carrillo MD Hold evening dose of Coreg on 05/30/19 CHANTIX CONTINUING MONTH MONSERRAT 1 MG ORAL TABLET completed One pack. Take as directed - Yimi Carrillo MD CHANTIX STARTING MONTH MONSERRAT 0.5 MG X 11 & 1 MG X 42 ORAL TABLET completed One Pack. Take as directed. - Yimi Carrillo MD CORLANOR 5 MG ORAL TABLET completed one tab by mouth twice daily - Yimi Carrillo MD furosemide 20 mg tablet completed Take 1 tablet by mouth once a day - Aileen Ayers Poly Allergy 180 mg tablet active Take 1 tablet once a day Kimberly Schreiber carvedilol 12.5 mg tablet completed Take 1 tablet by mouth twice a day - Angelica Troncoso spironolactone 25 mg tablet completed Take 1 tablet by mouth once a day - Jina Henriquez lisinopril 10 mg tablet completed Take 1 tablet by mouth once a day - Geremias León atorvastatin 40 mg tablet completed 1 tablet once a day - Yimi Carrillo MD SOCIAL HISTORY Date Observation Value Provider drug use no Yimi Thapa alcohol use no Yimi Thapa passive cigarette sm elias exposure no Yimi Carrillo MD number of years as a smoker 31 a Yimi Carrillo MD smoking history, tot al pack/day 1 Yimi Carrillo MD cigarette use yes Yimi Carrillo MD smoking status Former smoker Yimi luke MD drug use no Israel Young alcohol use no Israel Young passive cigarette sm elias exposure no Israel Young number of years as a smoker 31 a Israel Young smoking history, tot al pack/day 1 Israel Young cigarette use yes Israel Young smoking status Former smoker Israel Pace i drug use no Yimi Thapa alcohol use no Yimi Thapa passive cigarette sm elias exposure no Yimi Carrillo MD number of years as a smoker 31 a Yimi Carrillo MD smoking history, tot al pack/day 1 Yimi Carrillo MD cigarette use yes Yimi Carrillo MD smoking status Former smoker Yimi luke MD drug use no Yimi Thapa alcohol use no Yimi Thapa passive cigarette sm elias exposure no Yimi Carrlilo MD number of years as a smoker 31 a Yimi Carrillo MD smoking history, tot al pack/day 1 Yimi Carrillo MD cigarette use yes Yimi Carrillo MD smoking status Former smoker Yimi luke MD social history E&M Marital Statu s: Single C hildren: 0 O ccupation: Disabled Smoking History: P moriah is a former smoker. Yimi Carrillo MD social history revie wed E&M reviewed - no changes required Yimi Carrillo MD passive cigarette sm elias exposure no Beatriz Bergman number of years as a smoker 31 a Beatriz Bergman smoking history, tot al pack/day 1 Beatriz Bergman cigarette use yes Beatriz white smoking status Former smoker Beatriz beatty drug use no Mae Ventimig ana [employer] WORKER alcohol use no Mae Ventimig ana [employer] WORKER passive cigarette sm elias exposure no Vanessa Stoney smoking/tobacco cess ation, patient education and counseling yes Vanessa Stoney number of years as a smoker 31 a Vanessa Stoney smoking history, tot al pack/day 1 Vanessa Stoney cigarette use yes Vanessa Stoney smoking status Current every day smoker S cece Stoney number of grandchildren Taryn Sierra social history E&M Marital Statu s: Single C hildren: 0 O ccupation: Disabled Smoking History: P atient currently smokes every day. P atient has been counseled to quit. Yimi Carrillo MD social history revie wed E&M reviewed - no changes required Yimi Carrillo MD passive cigarette sm elias exposure no Vanessajesús Lua smoking/tobacco cess ation, patient education and counseling yes Vanessa Lua number of years as a smoker 31 a Vanessajesús Lua smoking history, tot al pack/day 1 Vanessa Stoney cigarette use yes Vanessa Stoney smoking status Current every day smoker S cece Stoney social history E&M Marital Statu s: Single C hildren: 0 O ccupation: Disabled Smoking History: P atient currently smokes every day. P atient has been counseled to quit. Yimi Carrillo MD social history revie wed E&M reviewed - no changes required Yimi Carrillo MD passive cigarette sm elias exposure no Norma Francis smoking/tobacco cess ation, patient education and counseling yes Norma Francis number of years as a smoker 31 a Norma Francis smoking history, tot al pack/day 1 Norma Francis cigarette use yes Norma lee smoking status Current every day smoker Patricio Francis social history revie wed E&M reviewed - no changes required Yimi Carrillo MD passive cigarette sm elias exposure no Yimi Carrillo MD social history E&M Marital Statu s: Single Leidy chisholm: 0 O ccupation: Disabled Smoking History: P atient currently smokes every day. P atient has been counseled to quit. Yimi Carrillo MD social history revie wed E&M reviewed - no changes required Yimi Carrillo MD smoking/tobacco cess ation, patient education and counseling yes Arianna Nolan number of years as a smoker 31 a Arianna Nolan smoking history, tot al pack/day 1 Arianna Nolan cigarette use yes Arianna chisholm smoking status Current every day smoker Leidy Nolan social history E&M Marital Statu s: Single Leidy chisholm: 0 O ccupation: Disabled Smoking History: P atient currently smokes every day. P atient has been counseled to quit. Yimi Carrillo MD social history revie wed E&M reviewed - no changes required Yimi Carrillo MD smoking/tobacco cess ation, patient education and counseling yes Arianna Nolan number of years as a smoker 31 a Arianna Nolan smoking history, tot al pack/day 1 Arianna Nolan cigarette use yes Arianna chisholm smoking status Current every day smoker Leidy Nolan social history E&M Marital Statu s: Single C hildren: 0 O ccupation: Disabled Smoking History: P atrosaline currently smokes every day. P atient has been counseled to quit. Yimi Carrillo MD social history revie wed E&M reviewed - no changes required Yimi Carrillo MD smoking/tobacco cess ation, patient education and counseling yes Arianna Nolan number of years as a smoker 31 a Arianna Nolan smoking history, tot al pack/day 1 Arianna Nolan cigarette use yes Arianna Dumont phan smoking status Current every day smoker C carmen Nolan social history revie wed E&M reviewed - no changes required Soren Beach MD number of grandchildren Soren Beach MD [place] carranza Colindres alcohol use, type occasionally [place] In gram smoking/tobacco cess ation, patient education and counseling yes Bakari Ottoam alcohol use yes [place] Colindres number of years as a smoker 31 a Donnie Juarez smoking history, tot al pack/day 1 Bakaridillon Ottoam cigarette use yes [place] Colindres smoking status Current every day smoker Patricio bravo Col[place] number of years as a smoker 30 a Donnie Juarez social history revie wed E&M reviewed - no changes required Soren Beach MD social history E&M Smoking Histo ry: P moriah currently smokes every day. P atrosaline has been counseled to quit. Soren Beach MD smoking/tobacco cess ation, patient education and counseling yes Soren Beach MD alcohol use, type occasionally Kimberly Abdoul alcohol use yes Kimberly Abdoul smoking history, tot al pack/day 1 Kimberly Abdoul cigarette use yes Kimberly Abdoul smoking status Current every day smoker D acia Abdoul FUNCTIONAL STATUS Date Observation Value Provider HRA, CV Assess/Plan, Angina (inactive) Management Plan continue current therapy Israel Young HRA, CV Assess/Plan, Angina (inactive) Management Plan continue current therapy Mae Lares [employer] WORKER HRA, CV Assess/Plan, Angina (inactive) Management Plan continue current therapy Wilfredo Sierra HRA, CV Assess/Plan, Angina (inactive) Management Plan continue current therapy Yimi Carrillo MD HRA, CV Assess/Plan, Angina (inactive) Management Plan continue current therapy Yimi Carrillo MD HRA, CV Assess/Plan, Angina (inactive) Management Plan continue current therapy Yimi Carrillo MD HRA, CV Assess/Plan, Angina (inactive) Management Plan continue current therapy Yimi Carrillo MD HRA, CV Assess/Plan, Angina (inactive) Management Plan schedule PCI Soren Beach MD HRA, CV Assess/Plan, Angina (inactive) Management Plan continue current therapy Soren Beach MD FAMILY HISTORY Family Member Condition First Degree Blood Relative No Known Fam jessee History INSURANCE PROVIDERS Payer name Policy type / Coverage type [place] red green party ID [facility] COMPLETE CARE [id number] (PPO C-SNP) Commercial insurance company [id number] [facility] Medicaid 2 [id number] ADVANCE DIRECTIVES Name Date DISCUSSED - NO DECISION MADE TREATMENT PLAN Date Name Performer [id number],B, Yimi luke MD [id number],S, Yimi luke MD [id number],B, Yimi luke MD [id number],S, Yimi luke MD [id number],S, Yimi luke MD [id number],N,N eeds MRIs. ICD currently MRI incompatible. Will try and replace generator with medtronic device to restore MRI compatibility. Yimi Carrillo MD [id number],C, H is updated medication list for this problem includes: Repatha Sureclick 140 Mg/ml Pen Injector (Evolocumab) ..... 1 pen injector every two weeks [facility] [id number],C, T he following medications were removed from the medication list: Dofetilide 500 Mcg Capsule (Dofetilide) ..... Take 1 capsule by mouth twice a day His updated medication list for this problem includes: Aspirin 81 Mg Tablet,delayed Release (dr/ec) (Aspirin) ..... Take 1 tablet by mouth once a day Carvedilol 12.5 Mg Tablet (Carvedilol) ..... Take 1 tablet by mouth twice daily Lisinopril 10 Mg Tablet (Lisinopril) ..... Take 1 tablet by mouth daily [facility] [id number],C,r ecent new mass in [place] with lymphadenopathy. Patient is hesistant to pursue biopsy and treatment. Patient functional and overall well at this time. Have referred for second opinion which patient agreeable to. He will f/u post biopsy or sooner if needed. [facility] [id number],C,B IVICD in place. compensated T he following medications were removed from the medication list: Dofetilide 500 Mcg Capsule (Dofetilide) ..... Take 1 capsule by mouth twice a day His updated medication list for this problem includes: Aspirin 81 Mg Tablet,delayed Release (/ec) (Aspirin) ..... Take 1 tablet by mouth once a day Carvedilol 12.5 Mg Tablet (Carvedilol) ..... Take 1 tablet by mouth twice daily Lisinopril 10 Mg Tablet (Lisinopril) ..... Take 1 tablet by mouth daily Spironolactone 25 Mg Tablet (Spironolactone) ..... Take 1 tablet by mouth daily [facility] [id number],CTaryn MD [id number],C, H is updated medication list for this problem includes: Aspirin 81 Mg Tablet,delayed Release (dr/ec) (Aspirin) ..... Take 1 tablet by mouth once a day Carvedilol 12.5 Mg Tablet (Carvedilol) ..... Take 1 tablet by mouth twice daily Lisinopril 10 Mg Tablet (Lisinopril) ..... Take 1 tablet by mouth daily Spironolactone 25 Mg Tablet (Spironolactone) ..... Take 1 tablet by mouth daily Taryn Bolaños MD [id number],S,e cho 07/2022 EF 52% His updated medication list for this problem includes: Dofetilide 500 Mcg Capsule (Dofetilide) ..... Take 1 capsule by mouth twice a day Aspirin 81 Mg Tablet,delayed Release (dr/ec) (Aspirin) ..... Take 1 tablet by mouth once a day Carvedilol 12.5 Mg Tablet (Carvedilol) ..... Take 1 tablet by mouth twice daily Lisinopril 10 Mg Tablet (Lisinopril) ..... Take 1 tablet by mouth daily Spironolactone 25 Mg Tablet (Spironolactone) ..... Take 1 tablet by mouth daily Taryn Bolaños MD [id number],C, n ormal function Taryn Bolaños MD [id number],N, n ew onset afib s xs of CP and SOB d iscussed sotalol vs. tikosyn. recommend tikosyn since patient smokes. w ill check EKG this wednesday and f/u next wednesday w ill likely need anticoagulation if has recurrent and/or longer episodes of AF His updated medication list for this problem includes: Dofetilide 500 Mcg Capsule (Dofetilide) ..... Take 1 capsule by mouth twice a day Aspirin 81 Mg Tablet,delayed Release (dr/ec) (Aspirin) ..... Take 1 tablet by mouth once a day Carvedilol 12.5 Mg Tablet (Carvedilol) ..... Take 1 tablet by mouth twice daily Lisinopril 10 Mg Tablet (Lisinopril) ..... Take 1 tablet by mouth daily Wilfredo Sierra [id number],S, T he Patient was reencouraged to stop smoking. Wilfredo Mariela [id number],S,e cho 07/2022 EF 52% His updated medication list for this problem includes: Carvedilol 12.5 Mg Tablet (Carvedilol) ..... Take 1 tablet by mouth twice daily Lisinopril 10 Mg Tablet (Lisinopril) ..... Take 1 tablet by mouth daily Spironolactone 25 Mg Tablet (Spironolactone) ..... Take 1 tablet by mouth daily Wilfredo Mariela [id number],C, n ormal function Wilfredo Sierra [id number],S, Yimi luke MD [id number],S, Yimi luke MD [id number],S, Yimi luke MD [id number],S, Yimi Ramxiomy luke MD [id number],S, Yimi luke MD [id number],S, Yimi Ramxiomy luke MD [id number],S, Yimi Ramada marly MARINO [id number],S, Yimi Ramxiomy luke MD [id number],S, Yimi Ramada marly MARINO [id number],S, Yimi luke MD Cardiology Yimi Carrillo MD Cardiology:Last EF 1 year ago EF 55% N eed repeat ECHO given his increase in SOB. Yimi Carrillo MD Cardiology Yimi Carrillo MD Cardiology: A F burden 0% from recent device check His updated medication list for this problem includes: Carvedilol 12.5 Mg Tablet (Carvedilol) ..... Take 1 tablet by mouth twice daily Lisinopril 10 Mg Tablet (Lisinopril) ..... Take 1 tablet by mouth daily Aspirin 81 Mg Tablet,delayed Release (dr/ec) (Aspirin) ..... Take 1 tablet by mouth once a day Yimi Carrillo MD Cardiology:Now with recurrent pain he says is same as with previous AK. P moriah has history of coronary atherosclerosis, worsening symptoms of chest pain or shortness of breath, and is unable to exercise on treadmill long enough to achieve target heartrate. I am ordering a Stress PET-CT to further evaluate. Yimi Carrillo MD Cardiology:Echo 40-4 5% from 04/2024 His updated medication list for this problem includes: Carvedilol 12.5 Mg Tablet (Carvedilol) ..... Take 1 tablet by mouth twice daily Furosemide 20 Mg Tablet (Furosemide) ..... Take 1 tablet by mouth daily Spironolactone 25 Mg Tablet (Spironolactone) ..... Take 1 tablet by mouth daily Lisinopril 10 Mg Tablet (Lisinopril) ..... Take 1 tablet by mouth daily Aspirin 81 Mg Tablet,delayed Release (dr/ec) (Aspirin) ..... Take 1 tablet by mouth once a day [facility] Young Cardiology:Cath 2019 C ONCLUSION 1 . Severe ;radha-vessel coronary disease with total occlusion of the RCA which is chronic, k~own for m any years and well collateralized. 2 . Disease of the LAD with 25% stenosis. 3 . Collate~als from left to right. 4 . EF 50-5)%. 5 . No signLficant aortic insufficiency His updated medication list for this problem includes: Carvedilol 12.5 Mg Tablet (Carvedilol) ..... Take 1 tablet by mouth twice daily Lisinopril 10 Mg Tablet (Lisinopril) ..... Take 1 tablet by mouth daily Aspirin 81 Mg Tablet,delayed Release (dr/ec) (Aspirin) ..... Take 1 tablet by mouth once a day [facility] Young Cardiology:Will turn off ICD lead testing as he expresses discomfort when it occurs and wakes him from sleep. [facility] Cardiology:Reviewed cessation Al sarah Hector Cardiology: H is updated medication list for this problem includes: Repatha Sureclick 140 Mg/ml Pen Injector (Evolocumab) ..... Inject 1 pen injector subcutaneously once every two weeks [facility] Hector Cardiology:Following [facility]:AF burden 0% from recent device check His updated medication list for this problem includes: Carvedilol 12.5 Mg Tablet (Carvedilol) ..... Take 1 tablet by mouth twice daily Lisinopril 10 Mg Tablet (Lisinopril) ..... Take 1 tablet by mouth daily Aspirin 81 Mg Tablet,delayed Release (dr/ec) (Aspirin) ..... Take 1 tablet by mouth once a day [facility] Young Cardiology Yimi Carrillo MD Cardiology Yimi Carrillo MD Cardiology:EF today is 45% Yimi Carrillo MD Cardiology Yimi Carrillo MD Cardiology Yimi Carrillo MD Cardiology Yimi Carrillo MD Cardiology Yimi Carrillo MD Cardiology Yimi Carrillo MD Cardiology:Needs to go back to d aily furosemide. Yimi Carrillo MD Cardiology:Has finished chemo an d radiation. Yimi Carrillo MD Cardiology Yimi Carrillo MD Cardiology Yimi Carrillo MD Cardiology Yimi Carrillo MD Cardiology Yimi Carrillo MD Cardiology Yimi Carrillo MD Cardiology:Needs MRI s. ICD currently MRI incompatible. Will try and replace generator with medtronic device to restore MRI compatibility. Yimi Carrillo MD Cardiology: H is updated medication list for this problem includes: Repatha Sureclick 140 Mg/ml Pen Injector (Evolocumab) ..... 1 pen injector every two weeks [facility] Cardiology: T he following medications were removed from the medication list: Dofetilide 500 Mcg Capsule (Dofetilide) ..... Take 1 capsule by mouth twice a day His updated medication list for this problem includes: Aspirin 81 Mg Tablet,delayed Release (dr/ec) (Aspirin) ..... Take 1 tablet by mouth once a day Carvedilol 12.5 Mg Tablet (Carvedilol) ..... Take 1 tablet by mouth twice daily Lisinopril 10 Mg Tablet (Lisinopril) ..... Take 1 tablet by mouth daily [facility] Cardiology:recent ne w mass in [place] with lymphadenopathy. Patient is hesistant to pursue biopsy and treatment. Patient functional and overall well at this time. Have referred for second opinion which patient agreeable to. He will f/u post biopsy or sooner if needed. [facility] Cardiology:BIVICD in place. compensated T he following medications were removed from the medication list: Dofetilide 500 Mcg Capsule (Dofetilide) ..... Take 1 capsule by mouth twice a day H is updated medication list for this problem includes: Aspirin 81 Mg Tablet,delayed Release (dr/ec) (Aspirin) ..... Take 1 tablet by mouth once a day Carvedilol 12.5 Mg Tablet (Carvedilol) ..... Take 1 tablet by mouth twice daily Lisinopril 10 Mg Tablet (Lisinopril) ..... Take 1 tablet by mouth daily Spironolactone 25 Mg Tablet (Spironolactone) ..... [facility] Electrophysiology Taryn renee MD Electrophysiology: H is updated medication list for this problem includes: Aspirin 81 Mg Tablet,delayed Release (dr/ec) (Aspirin) ..... Take 1 tablet by mouth once a day Carvedilol 12.5 Mg Tablet (Carvedilol) ..... Take 1 tablet by mouth twice daily Lisinopril 10 Mg Tablet (Lisinopril) ..... Take 1 tablet by mouth daily Spironolactone 25 Mg Tablet (Spironolactone) ..... Take 1 tablet by mouth daily Taryn Bolaños MD Electrophysiology:ec 07/2022 EF 52% His updated medication list for this problem includes: Dofetilide 500 Mcg Capsule (Dofetilide) ..... Take 1 capsule by mouth twice a day Aspirin 81 Mg Tablet,delayed Release (dr/ec) (Aspirin) ..... Take 1 tablet by mouth once a day Carvedilol 12.5 Mg Tablet (Carvedilol) ..... Take 1 tablet by mouth twice daily Lisinopril 10 Mg Tablet (Lisinopril) ..... Take 1 tablet by mouth daily Spironolactone 25 Mg Tablet (Spironolactone) ..... Take 1 tablet by mouth daily Taryn Bolaños MD Electrophysiology: n ormal function Taryn Bolaños MD Electrophysiology: n ew onset afib s xs of CP and SOB d iscussed sotalol vs. tikosyn. recommend tikosyn since patient smokes. w ill check EKG this wednesday and f/u next wednesday w ill likely need anticoagulation if has recurrent and/or longer episodes of AF His updated medication list for this problem includes: Dofetilide 500 Mcg Capsule (Dofetilide) ..... Take 1 capsule by mouth twice a day Aspirin 81 Mg Tablet,delayed Release (dr/ec) (Aspirin) ..... Take 1 tablet by mouth once a day Carvedilol 12.5 Mg Tablet (Carvedilol) ..... Take 1 tablet by mouth twice daily Lisinopril 10 Mg Tablet (Lisinopril) ..... Take 1 tablet by mouth daily Wilfredo Sierra Electrophysiology: T he Patient was reencouraged to stop smoking. Wilfredo Sierra Electrophysiology:ec 07/2022 EF 52% His updated medication list for this problem includes: Carvedilol 12.5 Mg Tablet (Carvedilol) ..... Take 1 tablet by mouth twice daily Lisinopril 10 Mg Tablet (Lisinopril) ..... Take 1 tablet by mouth daily Spironolactone 25 Mg Tablet (Spironolactone) ..... Take 1 tablet by mouth daily Wilfredo Sierra Electrophysiology: n ormal function Wilfredo Sierra Cardiology Yimi Carrillo MD Cardiology Yimi Carrillo MD Cardiology Yimi Carrillo MD Cardiology Yimi Carrillo MD Cardiology Yimi Carrillo MD Cardiology Yimi Carrillo MD Cardiology Yimi Carrillo MD Cardiology Yimi Carrillo MD Cardiology Yimi Carrillo MD Cardiology Yimi Carrillo MD Cardiology hospital follow up Ra kavon Carrillo MD Cardiology hospital follow up Ra kavon Carrillo MD Cardiology hospital follow up Ra kavon Carrillo MD Cardiology hospital follow up Ra kavon Carrillo MD Cardiology hospital follow up Ra kavon Carrillo MD Cardiology follow up :FRAN-schedule replacement T he patient is recommended to have ICD implanted. The risks and benefits have been discussed with the patient in this shared decision making encounter. A copy of the following evidence based decision tool on ICD has been given to the patient. [email or web address]-content/[email or web address] Yimi Carrillo MD Cardiology follow up Yimi white MD Cardiology follow up Yimi white MD Cardiology follow up :FRAN-schedu le replacement Yimi Carrillo MD Cardiology follow up Yimi white MD Cardiology follow up Yimi white MD Cardiology follow up Yimi white MD Cardiology follow up Yimi white MD Cardiology follow up Yimi white MD Cardiology follow up Yimi white MD Cardiology follow up :Last EF 55 % by ECHO Yimi Carrillo MD Cardiology:He would like to try Chantix to help him quit smoking. [facility] Cardiology:In-office device check today shows appropriate function. [facility] Cardiology:Pt noted reduced exercise capacity. He gets fatigued easily and SOB. 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 Last year echo showed improvement of EF. Will obtain f/u echo and CT coronary angiography. Will try Corlanor 5mg BID. His updated medication list for this problem includes: Corlanor 5 Mg Oral Tablet (Ivabradine hcl) .... One tab by mouth twice daily Lasix 20 Mg Oral Tablet (Furosemide) ..... Take one tablet daily Carvedilol 12.5 Mg Oral Tablet (Carvedilol) ..... Take one tablet twice daily Spironolactone 25 Mg Oral Tablet (Spironolactone) ..... Take one tablet daily Lisinopril 10 Mg Oral Tablet (Lisinopril) ..... Take one tablet daily [facility] Cardiology:Followed by GI. Loli new [facility] Cardiology:Pt noted reduced exercise capacity. He gets fatigued easily and SOB. 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 Last year echo showed improvement of EF. Will obtain f/u echo and CT coronary angiography. Will try Corlanor 5mg BID. His updated medication list for this problem includes: Corlanor 5 Mg Oral Tablet (Ivabradine hcl) .... One tab by mouth twice daily Lasix 20 Mg Oral Tablet (Furosemide) ..... Take one tablet daily Carvedilol 12.5 Mg Oral Tablet (Carvedilol) ..... Take one tablet twice daily Spironolactone 25 Mg Oral Tablet (Spironolactone) ..... Take one tablet daily Lisinopril 10 Mg Oral Tablet (Lisinopril) ..... Take one tablet daily [facility] Cardiology:Pt noted reduced exercise capacity. He gets fatigued easily and SOB. 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 Last year echo showed improvement of EF. Will obtain f/u echo and CT coronary angiography. His updated medication list for this problem includes: Aspir-81 81 Mg Oral Tablet Delayed Release (Aspirin) ..... Take one tablet daily Carvedilol 12.5 Mg Oral Tablet (Carvedilol) ..... Take one tablet twice daily Lisinopril 10 Mg Oral Tablet (Lisinopril) ..... Take one tablet daily [facility] Cardiology:Pt noted reduced exercise capacity. He gets fatigued easily and SOB. 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 Last year echo showed improvement of EF. Will obtain f/u echo and CT coronary angiography. Will try Corlanor 5mg BID. [facility] Cardiology:Pt noted reduced exercise capacity. He gets fatigued easily and SOB. 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 Last year echo showed improvement of EF. Will obtain f/u echo and CT coronary angiography. Will try Corlanor 5mg BID. [facility] Cardiology New patie nt:He's advised to stop smoking. 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 Had cardiac cath at [facility]. He has a BiV Medtronic ICD. Gets SOB with activity like walking in a large store. Denies chest pain. Will obtain an echo and device check. He's advised to stop smoking. His updated medication list for this problem includes: Aspir-81 81 Mg Oral Tablet Delayed Release (Aspirin) ..... Take one tablet daily Carvedilol 12.5 Mg Oral Tablet (Carvedilol) ..... Take one tablet twice daily Lisinopril 10 Mg Oral Tablet (Lisinopril) ..... 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 Had cardiac cath at [facility]. He has a BiV Medtronic ICD. Gets SOB with activity like walking in a large store. Will obtain an echo and device check. 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 Had cardiac cath at [facility]. He has a BiV Medtronic ICD. Gets SOB with activity like walking in a large store. Denies chest pain. Will obtain an echo and device check. His updated medication list for this problem includes: Carvedilol 12.5 Mg Oral Tablet (Carvedilol) ..... Take one tablet twice daily Spironolactone 25 Mg Oral Tablet (Spironolactone) ..... Take one tablet daily Lisinopril 10 Mg Oral Tablet (Lisinopril) ..... 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 Had cardiac cath at [facility]. He has a BiV Medtronic ICD. Gets SOB with activity like walking in a large store. Denies chest pain Will obtain an echo and device check. His updated medication list for this problem includes: Carvedilol 12.5 Mg Oral Tablet (Carvedilol) ..... Take one tablet twice daily Spironolactone 25 Mg Oral Tablet (Spironolactone) ..... Take one tablet daily Lisinopril 10 Mg Oral Tablet (Lisinopril) ..... Take one tablet daily [facility] Date Name myocardial blood milad w (PET) Stress Cardiac PET-C T Complete Echo Complete Echo Complete Echo EKG DLCO - 56959 FRC - 30548 FVC - 04341 HEMOGLOBIN A1c COMPREHENSIVE METABO LIC PANEL, W/EGFR LIPID PANEL CRP, high sensitivit y PROBNP, N TERMINAL Complete Echo Complete Echo X-Ray, Chest - Routi ne PARTIAL THROMBOPLAST IN TIME, ACTIVATED URINALYSIS, COMPLETE W/REFLEX TO CULTURE COMPREHENSIVE METABO LIC PANEL W/EGFR PROTHROMBIN TIME WIT H INR CBC (INCLUDES DIFF/P LT) Complete Echo BI-V AICD Implant - [facility] LIPID PANEL PROTHROMBIN TIME WIT H INR LIPID PANEL CBC (INCLUDES DIFF/P LT) BASIC METABOLIC PANE L W/EGFR Complete Echo CT Angio Coronaries AICD Check Complete Echo HISTORY OF PROCEDURES Procedure Date Procedure Name Provider Procedure Notes S tatus EKG Yimi Carrillo MD complete d Spirometry Taryn wolfe MD completed FVC / MVV with bronchodilator - 66809 Taryn Bolaños MD completed BLOOD COUNT HEMOGLOBIN Taryn valerio MD completed FRC - 81080 Taryn wolfe MD completed SpO2 w/o 6min walk/titration Taryn Bolaños MD completed SVC - 45174 Taryn wolfe MD completed DLCO - 66059 Taryn wolfe MD completed EKG Taryn wolfe MD completed EKG Yimi Carrillo MD complete d EKG Soren Beach MD completed ICM Interrogation, Remote (Prof) Soren Beach MD INTERROGATION EVAL REMOTE </30 D CV MNTR SYS completed ICM Interrogation, Remote (Tech) Soren Beach MD INTERROGATION EVAL REMOTE </30 D TECH REVIEW completed ICM Interrogation, Remote (Prof) Soren Beach MD INTERROGATION EVAL REMOTE </30 D CV MNTR SYS completed ICM Interrogation, Remote (Tech) Soren Beach MD INTERROGATION EVAL REMOTE </30 D TECH REVIEW completed ICM Interrogation, Remote (Prof) Soren Beach MD INTERROGATION EVAL REMOTE </30 D CV MNTR SYS completed AICD Interrogation, Remote (Tech) Soren Beach MD INTERROGATION REMOTE </90 D WESTERN PHILOSOPHY PROFESSOR REVIEW completed AICD Interrogation, Remote (Prof) Soren Beach MD INTERROGATION EVAL REMOTE </90 D 1/2/> LD CVDFB completed ICM Interrogation, Remote (Prof) Soren Beach MD INTERROGATION EVAL REMOTE </30 D CV MNTR SYS completed ICM Interrogation, Remote (Tech) Soren Beach MD INTERROGATION EVAL REMOTE </30 D TECH REVIEW completed ICM Interrogation, Remote (Prof) Soren Beach MD INTERROGATION EVAL REMOTE </30 D CV MNTR SYS completed ICM Interrogation, Remote (Tech) Soren Beach MD INTERROGATION EVAL REMOTE </30 D TECH REVIEW completed EKG Soren Beach MD completed
--- OUTSIDE RECORDS SUMMARY | 2025-03-21 15:44 | XMS_ITS | Encounter Summary ---
Author Organization [facility] Address [address] [place] [address] Phone Care Team Providers Care Eligibility Manager Name Role Phone Gordon Argueta MD Primary Care Provider [phone] Margaret Greene MD Unavailable [phone] Tashi Duran MD Unavailable [phone] Skyler Sun MD PhD Unavailable [phone] Naveed Vance MD Unavailable [phone] Lorena Coronado MD, Yimi PChris Unavailable [phone] William Marte MD Unavailable [phone] Shira Nichole MD Unavailable [phone] Shira Nichole MD Unavailable [phone] Encounter Details Date Type Department Care Team (Late st Contact Info) Description 10/11/2016 Orders Only [facility] ProviderAngela MD [address] [place] [id number] Social History Tobacco Use Types Packs/Day Years Used Date Smoking Tobacco: Never Assessed Sex and Gender Information Value Date Recorded Sex Assigned at Not on file 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 us Historical Provider [facility] CARDIAC SERVICES PROCE DURES Final Result * CARDIOLOGY REPORT (10/11/2016) Anatomical Region Laterality Modality Other Narrative 10/11/2016 Ordered by an unspecified provider. Historical Provider CV CARDIAC SERVICES PROCE DURES Final Result documented in this encounter Visit Diagnoses Not on filedocumented in this encounter Care Teams Eligibility Manager Relationship Specialty Start Date End Date Gordon Argueta MD PCP - General 01/19/13 Margaret Greene MD [address] [place] [address] Consulting Physician Pulmonary Disease 12/15/22 3 3 Tashi Duran MD [address] [place] [id number] Consulting Physician Pulmonary Disease 12/15/22 Skyler Sun MD PhD [address] [place] [address] MEDICAL ONCOLOGY, [address] [id number] Medical Oncologist/Senior Games Technician Medical Oncology 01/28/23 Naveed Vance MD [address] [place] [address] MEDICAL ONCOLOGY, [address] [address] Consulting Physician Thoracic Surgery 01/28/23 02/06/23 Yimi Carrillo Jr., MD [address] [place] [address] Industrial Ecologist Cardiovascular Disease 01/28/23 [place] [address] [id number] [place] [address] Referring Physician Pulmonary Disease 01/28/23 [place] [address] [id number] [place] [address] Radiation Oncologist Radiation Oncology 02/10/2311/13 Shira Nichole MD [address] [address] Radiation Oncologist Radiation Oncology 11/14/24 documented as of this encounter
--- OUTSIDE RECORDS SUMMARY | 2025-03-21 15:44 | XMS_ITS | Clinical Summary ---
Author Organization [facility] Address Formerly [facility] [place] [address] Care Team Providers Care Thermostat Machine Tender Name Role Phone None, Provider Primary Care Provider Unavaila ble Allergies No known active allergies Social History Tobacco Use Types Packs/Day Years Used Date Smoking Tobacco: Former Cigarettes Smokeless Tobacco: Never Tobacco Cessation:Counseling Given: Not Answered Alcohol Use Standard Drinks/Week Comments Not Currently 0 (1 standard drink = 0.6 oz pur e alcohol) Sex and Gender Information Value Date Recorded Sex Assigned at Not on file Legal Sex Male 8:08 PM CDT Gender Identity Not on file Sexual Orientation Not on file Last Filed Vital Signs Vital Sign Reading Time Taken Comments Blood Pressure 140/73 05/01/2023 4:20 PM CDT Pulse 65 05/01/2023 4:20 PM CDT Temperature 36.7 C (98 F) 05/01/2023 5:20 PM CDT Respiratory Rate 18 05/01/2023 4:20 PM CDT Oxygen Saturation 95% 05/01/2023 5:20 PM CDT Inhaled Oxygen Concentration - - Weight 91.7 kg (202 lb 2.6 oz) 05/01/2023 2:25 P M CDT Height 175.3 cm (5' 9 ) 05/01/2023 2:25 PM CDT Body Mass Index 29.85 05/01/2023 2:25 PM CDT Plan of Treatment Health Maintenance Due Date Last Done Comments Colorectal Cancer Screening Colonoscopy (10 Years) 1964 Annual Physical 1967 Hepatitis C 1982 DTaP, Tdap and Td Vaccines ( 1 - Tdap) 1983 Pneumococcal Vaccine: 50+ Ye ars (1 of 1 - PCV) 2014 Zoster Vaccines (1 of 2) 2014 COVID-19 Vaccine (2 - 2023-2 5 season) 2024 03/01/2021 RSV Immunization or 60+ Years (1 - 1-dose 75+ series) 2039 Meningococcal B Vaccine Aged Out No l onger eligible based on patient's age to complete this topic Meningococcal Vaccine Aged Out No annita paco eligible based on patient's age to complete this topic RSV Immunizations Under 20 Months Aged Out No longer eligible based on patient's age to complete this topic Medical Devices Implanted Type Area Delivery Assistant Device Identifier Shelf Expiration Date Model / Serial / Lot Icd-01/26/2023 Implanted:Qty: 1 on 01/26/2023 by Yimi Carrillo Jr., MD ICD Chest [employer] CARDIAC RHYTHM AND HEART FAILURE - DIV M [id number] / [id number] / Description:MRI Conditional under following conditions: Static magnetic field of 1.5 T or 3 T, Max spatial gradient field of 2000 Gauss/cm, max slew rate of 200 T/m/s , 1.5 T max whole body JASPER or 2 W/kg in Normal Operating Mode, Head JASPER 3.2 W/kg or less; 3T JASPER must be B1+SARAY of 2.8 mT or less if isocenter is below C7, No JASPER restrictions on 3 T if isocenter is at or above C7, Implant must be in right or left pectoral region Ra Lead-09/30/2016 Implanted:Qty: 1 on 09/30/2016 by Yimi Carrillo Jr., MD Lead Implant Right: Atrium [employer] CARDIAC RHYTHM AND HEART FAILURE - DIV M [id number] / [id number] / Rv Lead-09/30/2016 Implanted:Qty: 1 on 09/30/2016 by Yimi Carrillo Jr., MD Lead Implant Right: Ventricle [employer] CARDIAC RHYTHM AND HEART FAILURE - DIV M [id number] / [id number] / Lv Lead-09/30/2016 Implanted:Qty: 1 on 09/30/2016 by Yimi Carrillo Jr., MD Lead Implant Left: Ventricle [employer] CARDIAC RHYTHM AND HEART FAILURE - DIV M [id number] / [id number] / Insurance [place] [address] [place] [address] Care Teams Thermostat Machine Tender Relationship Specialty Start Date End Date None, Provider, PCP - General UNKNOWN PHYSICIAN SPECIALTY 05/01/23
--- OUTSIDE RECORDS SUMMARY | 2025-03-21 15:44 | XMS_ITS ---
Author Organization [facility] [address] Address [address] [place] [address] Care Team Providers Care Insurance Counsel Name Role Phone Gordon Argueta MD Primary Care Provider [phone] Tashi Duran MD Unavailable [phone] Skyler Sun MD PhD Unavailable [phone] Lorena Coronado MD, Yimi P. Unavailable [phone] William Marte MD Unavailable Shira Nichole MD Unavailable [phone] Active Problems Patient Care Coordination No te [...] cyst. He underwent pulmonary function testing at [facility]. These results are still pending. [...] Pure hypercholesterolemia 01/15/2015 Overview (02/25/2017): Pure hypercholesterolemia Current Treatment and Therapy Plans Alteplase (CATHFLO ACTIVASE) - orders for occluded catheters* Plan Start Date: 05/02/2024 Plan Provider:Skyler Sun MD PhD Linked Problems Malignant neoplasm of upper lobe of left lung (HCC) Treatment Medications No medications scheduled. IV Maintenance Therapy Plan* Plan Start Date:04/27/2023 Plan Provider:Skyler Sun MD PhD Linked Problems Malignant neoplasm of upper lobe of left lung (HCC) Treatment Medications No medications scheduled. Past Treatment and Therapy Plans Oncology Chemotherapy Treatment Plan Name Start Date Discontinue Date Treatment Medications Discontinue Reason Plan Provider Cycles PACLItaxel / CARBOplatin with Concurrent Radiation: Induction / Weekly - Non-Small Cell Lung 02/23/2023 04/27/2023 CARBOplatin (PARAPLATIN) IVPB in 250 mLPACLItaxel (TAXOL) 100 ml Therapy Complete Skyler Sun MD PhD 1 of 1 cycle started Oncology Supportive Care Plan Name Start Date Discontinue Date Treatment Medications Discontinue Reason Plan Provider Hydration Therapy Plan 05/14/2023 08/01/2024 No medications scheduled. Orders Skyler Sun MD PhD Oncology Treatment (2) Plan Name Start Date Discontinue Date Treatment Medications Discontinue Reason Plan Provider Cycles durvalumab consolidation 14 Day Cycles - Lung 04/27/2023 08/01/2024 durvalumab (IMFINZI)durva lumab (IMFINZI) IVPB in 100 mL solution Patient Preference Skyler Sun MD PhD 1 of 26 cycles started Radiation Treatments * Course C1 LT SLIM 202202/23/2023 - 04/06/2023 Treatment Period Energy Fraction Dose Fractions Total Dose Plans Planned L_LUNG_MEDIAS 02/23/2023 - 04/06/2023 200 30 / 6,000 Reference Points Delivered [id number]_6000 02/23/2023 - 04/06/2023 6,000 Lifetime Dose Tracking * Chemical Lifetime Dose Automatic Entry Manual Entr y Fluoro Time 2.6 minutes 2.6 minutes 0 minutes Air kerma at the reference point (Ka,r) 1,475 mGy 1 7 mGy 1,458 mGy
== END 2025-03-21 14:47 | disposition home or self-care (01) ==
PROVIDERS: PCP Family Medicine; Visit Provider Internal Medicine Cardiovascular Disease
DX: C34.90 Malignant neoplasm of unspecified part of unspecified bronchus or lung (principal); J98.4 Other disorders of lung; I48.0 Paroxysmal atrial fibrillation; I50.9 Heart failure, unspecified; I42.9 Cardiomyopathy, unspecified; I25.10 Atherosclerotic heart disease of native coronary artery without angina pectoris; Z95.810 Presence of automatic (implantable) cardiac defibrillator; E78.5 Hyperlipidemia, unspecified; K64.9 Unspecified hemorrhoids; F17.200 Nicotine dependence, unspecified, uncomplicated
CPT/HCPCS: 93306

== ENCOUNTER 2025-04-07 19:16 | Emergency (ER) | payer MEDICARE, MEDICAID, SELFPAY ==
--- OUTSIDE RECORDS SUMMARY | 2025-04-07 19:18 | XMS_ITS | Clinical Summary ---
Author Organization [facility] Address [address] [place] [address] Care Team Providers Care Aviation Medicine Specialist Name Role Phone Gordon Argueta MD Primary Care Provider [phone] Source Comments [facility],non-owned Affiliates and Associated Physician Practices is amultiple site organization consisting of ambulatory clinics and hospital sitesin [place], [place], [place] and [place]. This disclosure is being madepursuant to the Care Everywhere program and may not contain all information available regarding this patient. Last updated 18.[facility] Allergies No known active allergies Medications * [...] daily Active Oxymetazoline HCl (VICKS SINEX NA) Catarina 1 spray into the nose 3 times daily Active atorvastatin (LIPITOR) 80 MG tablet Take 1 (one) tablet by mouth once daily 0 Active fluticasone propionate (FLONASE) 50 MCG/ACT nasal spray Catarina 2 (two) sprays into each nostril once [...] this topic Medical Devices Implanted Type Area Drapery Inspector Device Identifier Shelf Expiration Date Model / Serial / Lot Plug Srg 1.6in Groin Mfl Nabsb Prfx Implanted:Qty: 1 on 12/04/2019 by David Lugo MD at [facility] [employer] 12/19/2023 [id number] / / [id number] Procedures Procedure Name Priority Date/Time Associated Diagnosis Comments BASIC METABOLIC PANEL (CALCIUM TOTAL) STAT 12/04/2019 6:04 AM CENTER LINE CUTTER OPERATOR Preop examination from Last 3 Months or Most Recently Relevant to Health Maintenance Results * (ABNORMAL) BASIC METABOLIC PANEL (CALCIUM TOTAL) (12/04/2019 6:04 AM CENTER LINE CUTTER OPERATOR) Glucose 111(H) 70 - 105 mg/dL 12/04/2019 6:41 AM CENTER LINE CUTTER OPERATOR [facility] Sodium 138 136 - 145 mmol/L 12/04/2019 6:41 AM CENTER LINE CUTTER OPERATOR [facility] Potassium 4.1 3.5 - 4.7 mmol/L 12/04/2019 6:41 AM CENTER LINE CUTTER OPERATOR [facility] Chloride 105 98 - 107 mmol/L 12/04/2019 6:41 AM CENTER LINE CUTTER OPERATOR [facility] CO2 22(L) 23 - 31 mmol/L 12/04/2019 6:41 AM CENTER LINE CUTTER OPERATOR [facility] Calcium 9.2 8.4 - 10.4 mg/dL 12/04/2019 6:41 AM CENTER LINE CUTTER OPERATOR [facility] Anion Gap 11 8 - 16 mmol/L 12/04/2019 6:41 AM CENTER LINE CUTTER OPERATOR [facility] BUN 14 8.4 - 25.7 mg/dL 12/04/2019 6:41 AM CENTER LINE CUTTER OPERATOR [facility] Creatinine 0.70(L) 0.72 - 1.25 mg/dL 12/04/2019 6:41 AM CENTER LINE CUTTER OPERATOR [facility] eGFR by MDRD >60 >60 mL/min/1.7 3m2 12/04/2019 6:41 AM CENTER LINE CUTTER OPERATOR [facility] eGFR by MDRD >60 >60 mL/min/1.7 3m2 12/04/2019 6:41 AM CENTER LINE CUTTER OPERATOR [facility] Blood BLOOD SPECIMEN / Unknown Venipuncture / Unknown 12/04/2019 6:04 AM CENTER LINE CUTTER OPERATOR 12/04/2019 6:17 AM CENTER LINE CUTTER OPERATOR Shira Duke DO LAB - CHEMISTRY ORDERABLES Elissa duque Result Performing Organization Address City/State/[facility] Co de Phone Number [facility] [address] [place] [address] from Last 3 Months or Most Recently Relevant to Health Maintenance Insurance [facility] MANAGED MEDICARE ADV [facility] MANAGED MEDICARE ADV MED[place] [facility] MANAGED MEDICARE AD[place] [facility] MANAGED MEDICARE AD[place] [facility] MANAGED MEDICARE ADV Care Teams Aviation Medicine Specialist Relationship Specialty Start Date End Date Gordon Argueta MD [address] [place] [address] PCP - General Family Medicine 11/09/19
--- OUTSIDE RECORDS SUMMARY | 2025-04-07 19:18 | XMS_ITS | Clinical Summary ---
Author Organization [facility] Address [address], [facility] [address] [place] [address] Phone Care Team Providers Care Goggles Assembler Name Role Phone Gordon Argueta MD Primary Care Provider [phone] Edward Najera MD Unavailable Social History Tobacco [...] MEDICARE C [employer] MEDICAID [place] Care Teams Goggles Assembler Relationship Specialty Start Date End Date Gordon Argueta MD [address] [place] [address] PCP - General Family Medicine 08/03/24 Edward Najera MD [address] [place] [address] [place] [address] Consulting Physician Oncology 08/03/24
--- OUTSIDE RECORDS SUMMARY | 2025-04-07 19:19 | XMS_ITS ---
Author Organization [facility] [address] Address [address] [place] [address] Care Team Providers Care Lumber Scaler Name Role Phone Gordon Argueta MD Primary Care Provider Tashi Duran MD Unavailable [phone] Skyler Sun MD PhD Unavailable Lorena Coronado MD, Yimi P. Unavailable William Marte MD Unavailable Shira Nichole MD Unavailable [phone] Active Problems Patient Care Coordination No te [...] cyst. He underwent pulmonary function testing at [facility] [place]. These results are still pending. On December [...]
--- OUTSIDE RECORDS SUMMARY | 2025-04-07 19:19 | XMS_ITS | Encounter Summary ---
Author Organization [facility] Address [address] [place] [address] Phone Care Team Providers Care Certified Professional Ergonomist Name Role Phone Gordon Argueta MD Primary Care Provider [phone] Margaret Greene MD Unavailable [phone] Tashi Duran MD Unavailable [phone] Skyler Sun MD PhD Unavailable [phone] Naveed Vance MD Unavailable [phone] Lorena Coronado MD, Yimi Mayer Unavailable [phone] William Marte MD Unavailable [phone] Shira Nichole MD Unavailable [phone] Shira Nichole MD Unavailable [phone] Encounter Details Date Type Department Care Team (Late st Contact Info) Description 12/01/2022 Telephone [facility] Oncology [address] [facility] [address] [place] [address] [place] [address] Parvin Telles Social History Tobacco Use Types Packs/Day Years Used Date Smoking Tobacco: Every Day Cigarettes Alcohol Use Standard Drinks/Week Comments Yes 0 (1 standard drink = 0.6 oz pur e alcohol) Sex and Gender Information Value Date Recorded Sex Assigned at Not on file Legal Sex Male 8:49 AM CARPET [employer]ACK Gender Identity Not on file Sexual Orientation Not on file documented as of this encounter Plan of Treatment Not on file documented as of this encounter Visit Diagnoses Not on filedocumented in this encounter Care Teams Certified Professional Ergonomist Relationship Specialty Start Date End Date Gordon Argueta MD PCP - General 01/19/13 Margaret Greene MD [address] [place] [address] [id number] Consulting Physician Pulmonary Disease 12/15/22 3 3 Tashi Duran MD [address] [place] [address] [id number] Consulting Physician Pulmonary Disease 12/15/22 Skyler Sun MD PhD [address] [place] [address] MEDICAL ONCOLOGY, [address] [id number] Medical Oncologist/Radar Air Traffic Controller Medical Oncology 01/28/23 Naveed Vance MD [address] [place] [address] MEDICAL ONCOLOGY, [address] [id number] Consulting Physician Thoracic Surgery 01/28/23 02/06/23 Yimi Carrillo Jr., MD [address] [place] [address] Renal Nurse Cardiovascular Disease 01/28/23 [place] [address] [address] [facility] [address] [place] [address] Referring Physician Pulmonary Disease 01/28/23 [place] [address] [facility] [address] [place] [address] Radiation Oncologist Radiation Oncology 02/10/2311/13 Shira Nichole MD [address] [address] Radiation Oncologist Radiation Oncology 11/14/24 documented as of this encounter
--- OUTSIDE RECORDS SUMMARY | 2025-04-07 19:19 | XMS_ITS | Referral Summary ---
Author Organization [facility] [address] Address [address] [place] [address] Care Team Providers Care Industrial Gas Servicer Name Role Phone Ruth Argueta MD Primary Care Provider [phone] Tashi Duran MD Unavailable Skyler Sun MD PhD Unavailable Lorena Coronado MD, Yimi Mayer Unavailable William Marte MD Unavailable Shira Nichole MD Unavailable Encounters Date Type Department Care Team Description 01/23/2025 10:45 AM SENIOR ENGINEERING SPECIALIST Clinical Support [facility] at [address] [address] Malignant neoplasm of upper lobe of left lung (HCC); Other fatigue 01/23/2025 1:00 PM SENIOR ENGINEERING SPECIALIST Office Visit [facility] On[facility] [address] [place] [address] [address] [place] [phone] Skyler Sun MD PhD Malignant neoplasm of upper lobe of left lung (HCC) (Primary Dx); Other fatigue 01/23/2025 11:22 AM SENIOR ENGINEERING SPECIALIST - 01/23/2025 11:59 PM SENIOR ENGINEERING SPECIALIST Hospital Encounter [facility] Building [address] [place] [address] [place] [address] Malignant neoplasm of upper lobe of left lung (HCC) Discharge Disposition: Discharge to home or self care from Last 3 Months Allergies No known active allergies Medications ALPRAZolam (XANAX) 0.5 mg tablet take 1 tablet by oral route every day 0 01/19/20 13 Active Additional Information Patient not taking.Reported on 01/23/2025 fexofenadine (POLY) 180 mg tablet take 1 tablet (180MG) [...] cyst. He underwent pulmonary function testing at [facility]. These results are still pending. On [...] on file Legal Sex Male 8:49 AM SENIOR ENGINEERING SPECIALIST Gender Identity Not on file Sexual Orientation Not on file Last Filed Vital Signs Vital Sign Reading Time Taken Comments Blood Pressure 110/76 01/23/2025 1:14 PM SENIOR ENGINEERING SPECIALIST Pulse 86 01/23/2025 1:14 PM SENIOR ENGINEERING SPECIALIST Temperature 37 C (98.6 F) 01/23/2025 1:14 PM SENIOR ENGINEERING SPECIALIST Respiratory Rate 18 01/23/2025 1:14 PM SENIOR ENGINEERING SPECIALIST Oxygen Saturation 96% 01/23/2025 1:14 PM SENIOR ENGINEERING SPECIALIST Inhaled Oxygen Concentration - - Weight 91.9 kg (202 lb 9.6 oz) 01/23/2025 1:14 P M SENIOR ENGINEERING SPECIALIST Height 172.7 cm (5' 8 ) 01/23/2025 1:14 PM SENIOR ENGINEERING SPECIALIST Body Mass Index 30.81 01/23/2025 1:14 PM SENIOR ENGINEERING SPECIALIST Plan of Treatment Not on file Medical Devices Implanted Type Area Cable Systems Installer Device Identifier Shelf Expiration Date Model / Serial / Lot Ra Lead-09/30/20 16 Implanted:Qt y: 1 on 09/30/2016 by Yimi Carrillo Jr., MD Lead Right: Atria Medtronic Cardiac Rhythm Mgmt 5076-52 SURESCAN / [id number] / Rv Lead-09/30/20 16 Implanted:Qt y: 1 on 09/30/2016 by Yimi Carrillo Jr., MD Lead Right: Ventricle Medtronic Cardiac Rhythm Mgmt 6935M-62 / [id number] / Lv Lead- 016 Implanted:Qt y: 1 on 09/30/2016 by Yimi Carrillo Jr., MD Lead N/A: Coronary Sinus Medtronic Cardiac Rhythm Mgmt 4598-88 / [id number] / Medtronic Inc Cardiac [place] Hf 2 Chamber Df4 Inline Cnctr Is4 Tvoq2nd - [id number] - [id number] Implanted:Qt y: 1 on 01/26/2023 by Yimi Carrillo Jr., MD at [facility] Left: Chest Medtronic Inc [id number] 05/19/2024 DTPB2Q Q / [id number] / Angio [employer] Xcela Power Port 8fr [id number] - [id number] Implanted:Qt y: 1 on 02/11/2023 at [facility] Angio Dynamics 09/27/2027 [id number] / / [id number] Explanted Type Area Cable Systems Installer Device Identifier Shelf Expiration Date Model / Serial / Lot Biotronik Icd Generator Explanted:Qty: 1 on 01/26/2023 by Yimi Carrillo Jr., MD at [facility] Left: Chest Biotronik / [id number] / Procedures Procedure Name Priority Date/Time Associated Diagnosis Comments CT CHEST ABDOMEN W CONTRAST Schedule Routine, Read Routine (OP Routine) 01/23/2025 11:30 AM SENIOR ENGINEERING SPECIALIST Malignant neoplasm of upper lobe of left lung (HCC) THYROID FUNCTION CASCADE Routine 01/23/2025 11:11 AM SENIOR ENGINEERING SPECIALIST Malignant neoplasm of upper lobe of left lung (HCC) Other fatigue TOTAL TESTOSTERONE Routine 01/23/2025 11 :11 AM SENIOR ENGINEERING SPECIALIST Malignant neoplasm of upper lobe of left lung (HCC) Other fatigue EGFR Routine 01/23/2025 11:11 AM SENIOR ENGINEERING SPECIALIST Malignant neoplasm of upper lobe of left lung (HCC) DIFFERENTIAL AUTO Routine 01/23/2025 11: 11 AM SENIOR ENGINEERING SPECIALIST Malignant neoplasm of upper lobe of left lung (HCC) CBC WITH AUTO DIFFERENTIAL Routine 01/23/2025 11:11 AM SENIOR ENGINEERING SPECIALIST Malignant neoplasm of upper lobe of left lung (HCC) COMPREHENSIVE METABOLIC PANEL Routine 01/23/2025 11:11 AM SENIOR ENGINEERING SPECIALIST Malignant neoplasm of upper lobe of left lung (HCC) COLONOSCOPY Routine 02/28/2024 2:03 PM CDT from Last 3 Months or Most Recently Relevant to Health Maintenance Results * CT Chest Abdomen W Contrast (01/23/2025 11:30 AM SENIOR ENGINEERING SPECIALIST) Anatomical Region Laterality Modality Body N/A Computed Tomogra phy 01/26/2025 9:41 AM SENIOR ENGINEERING SPECIALIST Narrative 01/26/2025 10:01 AM SENIOR ENGINEERING SPECIALIST EXAM DESCRIPTION: CT CHEST ABDOMEN W CONTRAST [...] Dallas Aldana M.D. AG: LEONOR Report ID: [id number] Reading Location: [id number] Procedure Note Dallas Aldana MD - 01/26/2025 [...] Dallas Aldana M.D. AG: LEONOR Report ID: [id number] Reading Location: [id number] us Skyler Sun MD PhD IMG CT PROCEDURES Fin al Result * eGFR (01/23/2025 11:11 AM SENIOR ENGINEERING SPECIALIST) eGFR >90 >=60 mL/min/1. 73 m2 Comment: [...] was last reviewed 2021. Testing performed by: [address] [address] Blood 01/23/2025 11:1 1 AM SENIOR ENGINEERING SPECIALIST 01/23/2025 11:13 AM SENIOR ENGINEERING SPECIALIST us Skyler Sun MD PhD LAB BLOOD ORDERABLES Final Result [facility] [address] [facility] Department [place] [address] * Differential, auto (01/23/2025 11:11 AM SENIOR ENGINEERING SPECIALIST) Neutrophil abs 6.2 1.5 - 6.5 K/cumm Comment:Testing performed by : [address] [address] Imm gran abs 0.0 0.0 - 0.1 K/cumm EMPERATRIZ Comment:Testing performed by : [address] [address] Lymphocyte abs 1.4 0.8 - 3.3 K/cumm EMPERATRIZ Comment:Testing performed by : [address] [address] Monocyte abs 0.6 0.2 - 0.8 K/cumm EMPERATRIZ Comment:Testing performed by : [address] [address] Eosinophil abs 0.3 0.0 - 0.5 K/cumm EMPERATRIZ Comment:Testing performed by : [address] [address] Basophil abs 0.1 0.0 - 0.1 K/cumm EMPERATRIZ Comment:Testing performed by : [address] [address] Neutrophil pct 72.7 % EMPERATRIZ Comment: Interpretive Data Percent cell count reference ranges are not reported, since discordance with absolute values may lead to misinterpretation of CBC data. Current Interpretive Data was last revised on 2018. Testing performed by: [address] [address] Imm gran pct 0.4 % CERNER Comment: Interpretive Data Percent cell count reference ranges are not reported, since discordance with absolute values may lead to misinterpretation of CBC data. Current Interpretive Data was last revised on 2018. Testing performed by: [address] [address] Lymphocyte pct 15.9 % [facility] Comment: Interpretive Data Percent cell count reference ranges are not reported, since discordance with absolute values may lead to misinterpretation of CBC data. Current Interpretive Data was last revised on 2018. Testing performed by: [address] [address] Monocyte pct 6.5 % [facility] Comment: Interpretive Data Percent cell count reference ranges are not reported, since discordance with absolute values may lead to misinterpretation of CBC data. Current Interpretive Data was last revised on 2018. Testing performed by: [address] [address] Eosinophil pct 3.9 % [facility] Comment: Interpretive Data Percent cell count reference ranges are not reported, since discordance with absolute values may lead to misinterpretation of CBC data. Current Interpretive Data was last revised on 2018. Testing performed by: [address] [address] Basophil pct 0.6 % [facility] Comment: Interpretive Data Percent cell count reference ranges are not reported, since discordance with absolute values may lead to misinterpretation of CBC data. Current Interpretive Data was last revised on 2018. Testing performed by: [address] [address] Blood 01/23/2025 11:1 1 AM SENIOR ENGINEERING SPECIALIST 01/23/2025 11:13 AM SENIOR ENGINEERING SPECIALIST Skyler Sun MD PhD LAB BLOOD ORDERABLES Final Result EMPERATRIZ [address] [facility] [place] [address] * Thyroid Function Catron (01/23/2025 11:11 AM SENIOR ENGINEERING SPECIALIST) [facility] TSH 1.23 0.30 - 4.20 mcIUnit/mL Comment:Testing performed by : [address] [address] Blood 01/23/2025 11:1 1 AM SENIOR ENGINEERING SPECIALIST 01/23/2025 4:19 PM SENIOR ENGINEERING SPECIALIST us Skyler Sun MD PhD LAB BLOOD ORDERABLES Final Result Performing Organization Address [facility] Co de Phone Number EMPERATRIZ [address] [facility] [place] [address] * CBC with auto differential (01/23/2025 11:11 AM SENIOR ENGINEERING SPECIALIST) [facility] WBC 8.5 3.8 - 9.9 K/cumm Comment:Testing performed by : [address] [address] Hgb 14.9 13.0 - 17.5 g/dL EMPERATRIZ SCOTT Comment:Testing performed by : [address] [address] Hct 42.9 38.9 - 50.3 % EMPERATRIZ SCOTT Comment:Testing performed by : [address] [address] Plt 199 150 - 400 K/cumm EMPERATRIZ SCOTT Comment:Testing performed by : [address] [address] MPV 10.0 9.1 - 12.3 fL EMPERATRIZ SCOTT Comment:Testing performed by : [address] [address] RBC 4.62 4.30 - 5.80 M/cumm EMPERATRIZ SCOTT Comment:Testing performed by : [address] [address] MCV 92.9 81.3 - 96.4 fL EMPERATRIZ SCOTT Comment:Testing performed by : [address] [address] MCH 32.3 27.1 - 33.3 pg EMPERATRIZ SCOTT Comment:Testing performed by : [address] [address] MCHC 34.7 32.3 - 35.7 g/dL EMPERATRIZ SCOTT Comment:Testing performed by : [address], [address] RDW CV 13.1 11.1 - 14.9 % EMPERATRIZ SCOTT Comment:Testing performed by : [address], [address] RDW SD 44.6 35.7 - 48.1 fL EMPERATRIZ SCOTT Comment:Testing performed by : [address] [address] NRBC abs 0.00 0.00 - 0.01 K/cumm EMPERATRIZ SCOTT Comment:Testing performed by : [address], [address] Blood 01/23/2025 11:1 1 AM SENIOR ENGINEERING SPECIALIST 01/23/2025 11:13 AM SENIOR ENGINEERING SPECIALIST us Skyler Sun MD PhD LAB BLOOD ORDERABLES Final Result Performing Organization Address [facility] Co de Phone Number [address] [place] [address] * Total testosterone (01/23/2025 11:11 AM SENIOR ENGINEERING SPECIALIST) Testosterone 729.00 193.00 - 740.00 ng/dL Blood 01/23/2025 11:1 1 AM SENIOR ENGINEERING SPECIALIST 01/23/2025 5:07 PM SENIOR ENGINEERING SPECIALIST Skyler Sun MD PhD LAB BLOOD ORDERABLES Final Result Performing Organization Address [facility] de Phone Number [address] [place] [address] * (ABNORMAL) Comprehensive metabolic panel (01/23/2025 11:11 AM SENIOR ENGINEERING SPECIALIST) Sodium 136 135 - 145 mmol/L Comment:Testing performed by : [facility], [address] [place] [address], [place]., [address] Potassium, pl 4.4 3.3 - 4.9 mmol/L EMPERATRIZ Comment:Testing performed by : [address], [place]., [address] Chloride 100 97 - 110 mmol/L EMPERATRIZ Comment:Testing performed by : [address], [place]., [address] CO2 25 22 - 32 mmol/L EMPERATRIZ Comment:Testing performed by : [address], [place]., [address] Anion gap 11 2 - 15 mmol/L EMPERATRIZ Comment:Testing performed by : [address], [place]., [address] BUN 13 6 - 25 mg/dL EMPERATRIZ Comment:Testing performed by : [address], [place]., [address] Creatinine 0.60(L) 0.80 - 1.30 mg/dL EMPERATRIZ Comment:Testing performed by : [address], [place]., [address] Glucose 110 70 - 199 mg/dL [facility] Comment: Interpretive Data Fasting glucose >/= 126 [...] was last revised 2022. Testing performed by: [address] [address] Calcium 9.5 8.5 - 10.3 mg/dL EMPERATRIZ Comment:Testing performed by : [address], [place]., [address] Bilirubin, total 0.3 0.1 - 1.2 mg/dL EMPERATRIZ Comment:Testing performed by : [address], [place]., [address] Protein, pl 6.8 6.5 - 8.5 g/dL EMPERATRIZ SCOTT Comment:Testing performed by : [address] [address] Albumin 4.1 3.5 - 5.0 g/dL EMPERATRIZ SCOTT Comment:Testing performed by : [address] [address] Alk phos 77 40 - 130 Units/L EMPERATRIZ Comment:Testing performed by : [address] [address] ALT 20 7 - 55 Units/L EMPERATRIZ Comment:Testing performed by : [address] [address] AST 15 10 - 50 Units/L EMPERATRIZ Comment:Testing performed by : [address] [address] Blood 01/23/2025 11:1 1 AM SENIOR ENGINEERING SPECIALIST 01/23/2025 11:13 AM SENIOR ENGINEERING SPECIALIST us Skyler Sun MD PhD LAB BLOOD ORDERABLES Final Result EMPERATRIZ [address] [facility] Department [place] [address] * Colonoscopy (02/28/2024 2:03 PM CDT) [id number]|2025-04-07 19:19:00|2025-04-07 19:18:00|XMS_ITS|BKG DAEMON|External Medical Summaries|[id number]|" CONTINUITY OF CARE DOCUMENT Created on: April 07, 2025 Iona Jackson : 1965 Sex: Male Author Name patricia gomez Address Unknown Organization [facility] Address [address] [facility] [address] [place] [address] Phone [phone] Care Team Providers Care Industrial Gas Servicer Name Role Phone Yimi Carrillo MD Unavailable [phone] JOSEPH MARINO RUTH F Unavailable JOSEPH MARINO RUTH F Unavailable PROBLEMS Condition [...] Donnie rosen Atrial fibrillation, paroxysmal active Alexy hans Nacht Cavitating mass in left uppe r lung lobe active Mae Ventimiglia HOE RUNNER Non-small cell carcinoma of lung active Kelton Carrillo MD ENCOUNTERS Date Type Provider Location Encounter Diag nosis - In-person encounter Office Visit Yimi Carrillo MD [facility] - In-person encounter Office Visit Yimi Carrillo MD [facility] - In-person encounter Office Visit Yimi Carrillo MD [facility] - In-person encounter Office Visit Yimi Carrillo MD [facility] Office - In-person encounter Office Visit Yimi Carrillo MD [facility] Non-small cell carcinoma of lung - In-person encounter Office Visit Yimi Carrillo MD [facility] Cavitating mass in left upper lung lobe - In-person encounter Office Visit Taryn Bolaños MD [facility] Office Atrial fibrillation, paroxysmal - In-person encounter Office Visit Yimi Carrillo MD [facility] - In-person encounter Office Visit Yimi Carrillo MD [facility] - In-person encounter Office Visit Yimi Carrillo MD [facility] - In-person encounter Office Visit Yimi Carrillo MD [facility] - In-person encounter Office Visit Yimi Carrillo MD [facility] - In-person encounter Office Visit Yimi Carrillo MD [facility] - In-person encounter Office Visit Soren Beach MD [facility] HemorrhoidsFatigueHypercholesterolemia - In-person encounter Office Visit Soren [place] MD [facility] Congestive heart failureCardiomyopathyCADBiV AICD - MEDTRONIC/Gen change Biotronik ICD 11/04/20/ Gen change Medtronic BiV ICD 01/26/23 ( MRI Safe)Tobacco abuseShortness of breath VITAL SIGNS Date Observation Value Provider Body Mass Index (Ratio) 29.12 kg/m2 Shaka Carrillo MD blood pressure, diastolic 87 mm[Hg] Ying Telles blood pressure, systolic 136 mm[Hg] Lilibeth Telles oxygen saturation, oximetry 98 % Yoko Telles pulse rate 86 /min Yoko Telles respiratory rate E&M 12 /min Yoko Telles weight E&M 203 [lb_av] Yoko Telles height E&M 70 [in_i] Yoko Telles blood pressure, cuff size regular Ying Telles Body Mass Index (Ratio) 30.56 kg/m2 Shaka Carrillo MD blood pressure, diastolic 85 mm[Hg] Ying holley Telles blood pressure, systolic 141 mm[Hg] Lilibeth Telles oxygen saturation, oximetry 96 % Yoko Telles pulse rate 78 /min Yoko [place] respiratory rate E&M 12 /min Yoko [place] weight E&M 213 [lb_av] Yoko [place] height E&M 70 [in_i] [facility], [facility] size regular Ying holley [place] Body Mass Index (Ratio) 29.50 kg/m2 Shaka Carrillo MD blood pressure, cuff size regular Rl mejia Ha blood pressure, diastolic 82 mm[Hg] Rl mejia [place] blood pressure, systolic 138 mm[Hg] Jordan sousa [place] pulse rate 86 /min Donna Ha weight E&M 205.6 [lb_av] Donna Ha oxygen saturation, oximetry 99 % Donna Ha respiratory rate E&M 12 /min Donna Ha height E&M 70 [in_i] Donna Ha Body Mass Index (Ratio) 30.42 kg/m2 Shaka Carrillo MD blood pressure, cuff size regular Ke rri Tito blood pressure, diastolic 80 mm[Hg] Ke rri Jhoanueneroyer blood pressure, systolic 160 mm[Hg] Adrianne Francis oxygen saturation, oximetry 97 % Norma Francis respiratory rate E&M 12 /min Norma low pulse rate 84 /min Norma Alexandre [facility] weight E&M 212 [lb_av] Norma Alexandre [facility] height E&M 70 [in_i] Norma Baldomero [facility] Body Mass Index (Ratio) 29.41 kg/m2 Shaka Carrillo MD blood pressure, diastolic 87 mm[Hg] St vineetnicassi Johnston blood pressure, systolic 143 mm[Hg] Ousmane toledo Johnston oxygen saturation, oximetry 97 % Beatriz Johnston pulse rate 71 /min Beatriz Calles n weight E&M 205 [lb_av] Beatriz Rebolledosd n respiratory rate E&M 16 /min Arben micah Johnston height E&M 70 [in_i] Beatriz [facility] blood pressure, cuff size large St sauer Johnston Body Mass Index (Ratio) 28.98 kg/m2 Shaka Carrillo MD blood pressure, diastolic 83 mm[Hg] St tanisha Lua blood pressure, systolic 146 mm[Hg] Xi Lua oxygen saturation, oximetry 96 % Vanessa Lua respiratory rate E&M 18 /min Vanessa roldan pulse rate 84 /min Vanessa Lua weight E&M 202 [lb_av] Vanessastuart Lua height E&M 70 [in_i] Vanessastuart Lua Body Mass Index (Ratio) 30.13 kg/m2 Dylan Bolaños MD blood pressure, diastolic 78 mm[Hg] Li nkLogic blood pressure, systolic 127 mm[Hg] Tena kLogic blood pressure, diastolic 78 mm[Hg] Eric Francis blood pressure, systolic 127 mm[Hg] Ker ri Gruenenfelder blood pressure, cuff size large Ke rri Gru[place]felder oxygen saturation, oximetry 98 % Norma Gruenenfelder respiratory rate E&M 16 /min Norma G ruenenfelder pulse rate 81 /min Norma Gruenenfe er weight E&M 210 [lb_av] Norma Gruenenfe [facility] height E&M 70 [in_i] Norma Gruenenfe [facility] Body Mass Index (Ratio) 29.70 kg/m2 Shaka Carrillo MD blood pressure, diastolic 73 mm[Hg] St tanisha Lua blood pressure, systolic 121 mm[Hg] Xi Lua oxygen saturation, oximetry 96 % Vanessa Lua pulse rate 61 /min Vanessa Lua respiratory rate E&M 16 /min Vanessa roldan weight E&M 207 [lb_av] Vanessa Lua height E&M 70 [in_i] Vanessa Lua Body Mass Index (Ratio) 29.27 kg/m2 Shaka Carrillo MD blood pressure, cuff size large Ke rri Gruenenfrosa blood pressure, diastolic 60 mm[Hg] Ke rri Gruenenfeldjose blood pressure, systolic 122 mm[Hg] Ker ri Jhoanuenenfrosa oxygen saturation, oximetry 98 % Norma Jhoanuenenfrosa respiratory rate E&M 16 /min Norma G mattenenfeldjose pulse rate 79 /min Norma Gruenenfe er weight E&M 204 [lb_av] Norma Gruenenfe doreener height E&M 70 [in_i] Norma Gruenenfe [facility] Body Mass Index (Ratio) 30.13 kg/m2 Shaka Carrillo MD blood pressure, diastolic 70 mm[Hg] Madie nkLogic blood pressure, systolic 109 mm[Hg] Tena kLogic blood pressure, diastolic 70 mm[Hg] Sa ra Clements blood pressure, systolic 109 mm[Hg] Tobias a [place] oxygen saturation, oximetry 97 % Pratima Clmeents respiratory rate E&M 18 /min Pratima Si ms pulse rate 82 /min Pratima [place] blood pressure, cuff size regular Sa ra [place] weight E&M 210 [lb_av] Pratima [place] height E&M 70 [in_i] Pratima Clements Body Mass Index (Ratio) 29.55 kg/m2 Shaka Carrillo MD blood pressure, diastolic 72 mm[Hg] Cy ntstephanie Nolan blood pressure, systolic 118 mm[Hg] Diane fuad Nolan pulse rate 87 /min Arianna Campbel l oxygen saturation, oximetry 98 % Arianna Nolan respiratory rate E&M 16 /min Arianna Nolan blood pressure, cuff size regular Cy ntstephanie Nolan weight E&M 206 [lb_av] Arianna Campbel l height E&M 70 [in_i] Arianna Campbel l Body Mass Index (Ratio) 29.12 kg/m2 Shaka Carrillo MD blood pressure, diastolic 69 mm[Hg] Cy ntstephanie Nolan blood pressure, systolic 126 mm[Hg] Diane caina Ovidio pulse rate 84 /min Arianna Campbel l oxygen saturation, oximetry 97 % Arianna Nolan respiratory rate E&M 16 /min Arianna Nolan blood pressure, cuff size regular Cy nthia Nolan weight E&M 203 [lb_av] Arianna duque height E&M 70 [in_i] Arianna duque Body Mass Index (Ratio) 29.12 kg/m2 Shaka Carrillo MD blood pressure, cuff size regular Cy tramaine Nolan blood pressure, diastolic 70 mm[Hg] Cy tramaine Nolan blood pressure, systolic 128 mm[Hg] Diane Nolan pulse rate 91 /min Arianna duque oxygen saturation, oximetry 96 % Arianna Nolan respiratory rate E&M 16 /min Arianna Nolan weight E&M 203 [lb_av] Arianna duque height E&M 70 [in_i] Arianna duque Body Mass Index (Ratio) 27.55 kg/m2 Ramos Juarez blood pressure, diastolic, left arm 80 mm [Hg] Bakari Colindres blood pressure, systolic, left arm 120 mm [Hg] am blood pressure, diastolic, right arm 78 m m[Hg] am blood pressure, systolic, right arm 130 m m[Hg] Bakari Colindres blood pressure, diastolic 80 mm[Hg] [facility] blood pressure, systolic 120 mm[Hg] Kil ap [place] oxygen saturation, oximetry 98 % respiratory rate E&M 16 /min pulse rate 89 /min am weight E&M 192 [lb_av] height E&M 70 [in_i] Bakari Colindres Body Mass Index (Ratio) 27.55 kg/m2 Ramos Juarez blood pressure, diastolic 70 mm[Hg] Da bashir Schreiber blood pressure, systolic 120 mm[Hg] Dac ia [...] Location 8 LDL cholesterol, serum 179 mg/dL [facility] HISTORY OF MEDICATION USE Medication Status Instructions [...] TAKE 1 TABLET BY MOUTH DAILY Alliesanjiv Ortiz lisinopril 10 mg tablet active TAKE 1 TABLET BY MOUTH DAILY Alliesanjiv Ortiz Repatha SureClick 140 mg/mL pen injector active Inject 1 pen injector subcutaneously once every two weeks Yimi Torres SureClick 140 mg/mL pen injector completed - Yimi Carrillo MD furosemide 20 mg tablet completed TAKE 1 TABLET BY MOUTH DAILY as needed - Jacklyn Rushing atorvastatin 80 mg tablet completed Take 1 [...] TAKE 1 TABLET BY MOUTH TWICE DAILY [facility] Specialist NORCO 7.5-325 MG ORAL TABLET [...] Israel Young smoking status Former smoker Israel Arroyoivonne helena drug use no Yimi Rivas D alcohol use no Yimi Thapa passive cigarette [...] hildren: 0 O ccupation: Disabled Smoking History: Juan Manuel major is a former smoker. Yimi Carrillo MD social history revie wed E&M reviewed - no changes required Yimi Carrillo MD passive cigarette sm elias exposure no Beatrizandria Bergman number of years as a smoker 31 a Beatriz Pacheco smoking history, tot al pack/day 1 Beatriz Bergman cigarette use yes Beatriz Donald white smoking status Former smoker Beatriz Kirk jaci drug use no Mae Ventimig ana [employer]E RUNNER alcohol use no Mae Ventimig ana [employer] RUNNER passive cigarette sm elias exposure no Vanessa Lua smoking/tobacco cess ation, patient education and counseling yes Vanessa Lua number of years as a smoker 31 a Vanessa Lua smoking history, tot al pack/day 1 Vanessa Lua cigarette use yes Vanessa Lua smoking status Current every day smoker S cece Lua number of grandchildren Taryn Sierra social history E&M Marital Statu s: Single Leidy hareen: 0 O ccupation: Disabled Smoking History: P atient currently smokes every day. P atient has been counseled to quit. Yimi Carrillo MD social history revie wed E&M reviewed - no changes required Yimi Carrillo MD passive cigarette sm elias exposure no Vanessa Stoney smoking/tobacco cess ation, patient education and counseling yes Vanessa Lua number of years as a smoker 31 a Vanessa Stoney smoking history, tot al pack/day 1 Vanessa Stoney cigarette use yes Vanessa Stoney smoking status Current every day smoker S cece Stoney social history E&M Marital Statu s: Single Leidy hareen: 0 O ccupation: Disabled Smoking History: P atient currently smokes every day. P atient has been counseled to quit. Yimi Carrillo MD social history revie wed E&M reviewed - no changes required Yimi Carrillo MD passive cigarette sm elias exposure no Nomra Francis smoking/tobacco cess ation, patient education and counseling yes Norma Francis number of years as a smoker 31 a Norma Francis smoking history, tot al pack/day 1 Norma Tito cigarette use yes Norma lee smoking status Current every day smoker K julianna Francis social history revie wed E&M reviewed [...] phan smoking status Current every day smoker Leidy [...] 1 Arianna Nolan cigarette use yes Arianna Franciscoedison chisholm smoking status Current every day smoker [...] phan smoking status Current every day smoker Leidy morales Nolan social history revie wed E&M reviewed - no changes required Soren Beach MD number of grandchildren Soren Beach MD [place] carranza [place] alcohol use, type occasionally [place] smoking/tobacco cess ation, patient education and counseling yes [place] alcohol use yes Bakari [place] number of years as a smoker 31 a Donnie Juarez smoking history, tot al pack/day 1 Bakari [place] cigarette use yes [place] smoking status Current every day smoker Patricio bravo [place] number of years as a smoker [address] [facility] social history revie wed E&M reviewed - no changes required Soren Beach MD social history E&M Smoking Histo ry: P atient currently smokes every day. P atient has been counseled to quit. Soren Beach MD smoking/tobacco cess ation, patient education and counseling yes Soren Beach MD alcohol use, type occasionally Kimberly Abdoul alcohol use yes Kimberly Abdoul smoking history, tot al pack/day 1 Kimberly Abdoul cigarette use yes Kimberyl Abdoul smoking status Current every day smoker D acia Abdoul FUNCTIONAL STATUS Date Observation Value Provider HRA, CV Assess/Plan, Angina (inactive) Management Plan continue current therapy Israel Young HRA, CV Assess/Plan, Angina (inactive) Management Plan continue current therapy Mae Marymirg YOUNGERP HRA, CV Assess/Plan, Angina (inactive) Management Plan [...] Payer name Policy type / Coverage type FlowPay alliance party ID [facility] [id number] (PPO C-SNP) [place] [employer] / [email or web address] insurance Scripted [id number] [facility] Medicaid 2 [id number] ADVANCE DIRECTIVES Name Date DISCUSSED - NO DECISION MADE TREATMENT PLAN Date Name Performer [id number],B, Yimi luke MD [id number],S, Yimi luke MD [id number],B, Yimi luke MD [id number],S, Yimi luke MD [id number],S, Yimi luke MD [id number],N,N eeds MRIs. ICD currently MRI incompatible. Will try and replace generator with medtronic device to restore MRI compatibility. Yimi Carrillo MD [id number],C, H is updated medication list for this problem includes: Repatha Sureclick 140 Mg/ml Pen Injector (Evolocumab) ..... 1 pen injector every two weeks Mae Lares [facility] [id number],C, T he following medications were removed from [...] ..... Take 1 tablet by mouth daily Mae Lares [facility] [id number],C,r ecent new mass in [place] with lymphadenopathy. Patient is hesistant to pursue biopsy and treatment. Patient functional and overall well at this time. Have referred for second opinion which patient agreeable to. He will f/u post biopsy or sooner if needed. [facility] [id number],C,B IVICD in place. compensated T he following [...] ..... Take 1 tablet by mouth daily Mae Arnaud [facility] [id number],C, Taryn meadows MD [id number],C, H is updated medication list for this [...] tablet by mouth daily Taryn Bolaños MD [id number],S,e cho 07/2022 EF 52% His updated medication [...] tablet by mouth daily Taryn Bolaños MD [id number],C, n ormal function Taryn Bolaños MD [id number],N, n ew onset afib s xs of [...] 1 tablet by mouth daily Wilfredo Sierra [id number],S, T he Patient was reencouraged to stop smoking. Wilfredo Sierra [id number],S,e cho 07/2022 EF 52% His updated medication list for this problem includes: Carvedilol 12.5 Mg Tablet (Carvedilol) ..... Take 1 tablet by mouth twice daily Lisinopril 10 Mg Tablet (Lisinopril) ..... Take 1 tablet by mouth daily Spironolactone 25 Mg Tablet (Spironolactone) ..... Take 1 tablet by mouth daily Wilfredo Mariela [id number],C, n ormal function Wilfredo Mariela [id number],S, Yimi Mike luke MD [id number],S, Yimi Mike luke MD [id number],S, Yimi Ramxiomy n [id number],S, Yimi Ramxiomy luke MD [id number],S, Yimi Mike luke MD [id number],S, Yimi Ramxiomy luke MD [id number],S, Yimi Ramxiomy luke MD [id number],S, Yimi Ramxiomy luke MD [id number],S, Yimi Ramxiomy luke MD [id number],S, Yimi Mike luke MD Cardiology Yimi Carrillo MD Cardiology:Last [...] is same as with previous [place]. P atient has history of coronary atherosclerosis, worsening symptoms [...] him from sleep. Israel Young Cardiology:Reviewed cessation Fl sarah Young Cardiology: H is updated medication list for this problem includes: Repatha Sureclick 140 Mg/ml Pen Injector (Evolocumab) ..... Inject 1 pen injector subcutaneously once every two weeks Israel Young Cardiology:Following Oncology an d is stable Israel Young Cardiology:AF burden 0% from recent device check [...] Yimi Carrillo MD Cardiology Yimi Carrillo MD 2022
--- OUTSIDE RECORDS SUMMARY | 2025-04-07 19:19 | XMS_ITS | Encounter Summary ---
Author Organization [facility] Address [address] [place] [address] Phone Care Team Providers Care Power Plant Operators Supervisor Name Role Phone Gordon Argueta MD Primary Care Provider + [phone] Margaret Greene MD Unavailable [phone] Tashi Duran MD Unavailable [phone] Skyler Sun MD PhD Unavailable [phone] Naveed Vance MD Unavailable [phone] Lorena Coronado MD, Yimi PChris Unavailable [phone] William Marte MD Unavailable [phone] Shira Nichole MD Unavailable [phone] Shira Nichole MD Unavailable [phone] Encounter Details Date Type Department Care Team (Late st Contact Info) Description 01/09/2017 Orders Only [facility] ProviderAngela MD [address] [place] [address] Social History Tobacco Use Types Packs/Day Years Used Date Smoking Tobacco: Never Assessed Sex and Gender Information Value Date Recorded Sex Assigned at Not on file 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 Gender Identity Not on file Sexual Orientation [...] on filedocumented in this encounter Care Teams Power Plant Operators Supervisor Relationship Specialty Start Date End Date Gordon Argueta MD PCP - General 01/19/13 Margaret Greene MD [address] [place] [address] Consulting Physician Pulmonary Disease 12/15/22 32 3 Tashi Duran MD [address] [place] [address] Consulting Physician Pulmonary Disease 12/15/22 Skyler Sun MD PhD [address] [place] [address] MEDICAL ONCOLOGY, [address] [address] Medical Oncologist/Wound Treatment Rn Medical Oncology 01/28/23 Naveed Vance MD [address] [place] [address] MEDICAL ONCOLOGY, [address] [address] Consulting Physician Thoracic Surgery 01/28/23 02/06/23 Yimi Carrillo Jr., MD [address] [place] [address] Counsellors Cardiovascular Disease 01/28/23 [place] [id number] [place] [address] Referring Physician Pulmonary Disease 01/28/23 [place] [address] [address] [facility] [address] [place] [address] Radiation Oncologist Radiation Oncology 02/10/2311/13 Shira Nichole MD [address] [address] Radiation Oncologist Radiation Oncology 11/14/24 documented as of this encounter
--- OUTSIDE RECORDS SUMMARY | 2025-04-07 19:19 | XMS_ITS | Encounter Summary ---
Author Organization [facility] Address [address] [place] [address] Phone Care Team Providers Care Corporate Tutor Name Role Phone Gordon Argueta MD Primary Care Provider + [phone] Margaret Greene MD Unavailable [phone] Tashi Duran MD Unavailable [phone] Skyler Sun MD PhD Unavailable [phone] Naveed Vance MD Unavailable [phone] Lorena Coronado MD, Yimi PChris Unavailable [phone] William Marte MD Unavailable [phone] Shira Nichole MD Unavailable [phone] Shira Nichole MD Unavailable [phone] Encounter Details Date Type Department Care Team (Late st Contact Info) Description 01/14/2017 Orders Only [facility] ProviderAngela MD [address] [place] [address] Social History Tobacco Use Types Packs/Day Years Used Date Smoking Tobacco: Never Assessed Sex and Gender Information Value Date Recorded Sex Assigned at Not on file 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 Gender Identity Not on file Sexual Orientation [...] on filedocumented in this encounter Care Teams Corporate Tutor Relationship Specialty Start Date End Date Gordon Argueta MD PCP - General 01/19/13 Margaret Greene MD [address] [place] [address] Consulting Physician Pulmonary Disease 12/15/22 3 Tashi Duran MD [address] [place] [address] [id number] Consulting Physician Pulmonary Disease 12/15/22 Skyler Sun MD PhD [address] [place] [address] MEDICAL ONCOLOGY, [place] [address] Medical Oncologist/Marketing Production Coordinator Medical Oncology 01/28/23 Naveed Vance MD [address] [place] [address] MEDICAL ONCOLOGY, [place] [address] Consulting Physician Thoracic Surgery 01/28/23 02/06/23 Yimi Carrillo Jr., MD [address] [place] [address] Feather Baler Cardiovascular Disease 01/28/23 [place] [address] [id number] [place], [place] [id number] Referring Physician Pulmonary Disease 01/28/23 [place] [address] [id number] [place] [address] Radiation Oncologist Radiation Oncology 02/10/2311/13 Shira Nichole MD [address] [address] Radiation Oncologist Radiation Oncology 11/14/24 documented as of this encounter
--- OUTSIDE RECORDS SUMMARY | 2025-04-07 19:19 | XMS_ITS | Encounter Summary ---
Author Organization [facility] Address [address] [place] [address] Phone Care Team Providers Care Floor Steward/Stewardess Name Role Phone Gordon Argueta MD Primary Care Provider + [phone] Margaret Greene MD Unavailable [phone] Tsahi Duran MD Unavailable [phone] Skyler Sun MD PhD Unavailable [phone] Naveed Vance MD Unavailable [phone] Lorena Coronado MD, Yimi PChris Unavailable +[phone] William Marte MD Unavailable [phone] Shira Nichole MD Unavailable [phone] Shira Nichole MD Unavailable [phone] Encounter Details Date Type Department Care Team (Late st Contact Info) Description 10/11/2016 Orders Only [facility] ProviderAngela MD [address] [place] [address] Social History Tobacco Use Types Packs/Day Years Used Date Smoking Tobacco: Never Assessed Sex and Gender Information Value Date Recorded Sex Assigned at Not on file 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 Gender Identity Not on file Sexual Orientation [...] on filedocumented in this encounter Care Teams Floor Steward/Stewardess Relationship Specialty Start Date End Date Gordon Argueta MD PCP - General 01/19/13 Margaret Greene MD [address] [place] [address] Consulting Physician Pulmonary Disease 12/15/22 3 3 Tashi Duran MD [address] [place] [address] Consulting Physician Pulmonary Disease 12/15/22 Skyler Sun MD PhD [address] [place] [address] MEDICAL ONCOLOGY, [address] [address] Medical Oncologist/Maid Housekeeper Medical Oncology 01/28/23 Naveed Vance MD [address] [place] [address] MEDICAL ONCOLOGY, [address] [id number] Consulting Physician Thoracic Surgery 01/28/23 02/06/23 Yimi Carrillo Jr., MD [address] [place] [address] Ward Aide Cardiovascular Disease 01/28/23 [place] [id number] [place] [address] Referring Physician Pulmonary Disease 01/28/23 [place] [address] [facility] [facility] [address] [place] [address] Radiation Oncologist Radiation Oncology 02/10/2311/13 Shira Nichole MD [address] [address] Radiation Oncologist Radiation Oncology 11/14/24 documented as of this encounter
--- OUTSIDE RECORDS SUMMARY | 2025-04-07 19:19 | XMS_ITS | Clinical Summary ---
Author Organization [facility] Address [facility] [place] [address] Care Team Providers Care Manometer Technician Name Role Phone None, Provider Primary Care [...] this topic Medical Devices Implanted Type Area Wood Tile Installer Device Identifier Shelf Expiration Date Model / Serial / Lot Icd-01/26/2023 Implanted:Qty: 1 on 01/26/2023 by Yimi Carrillo Jr., MD ICD Chest [employer] CARDIAC RHYTHM AND HEART FAILURE - DIV M [id number] / [id number] / Description:MRI Conditional under following conditions: [...] HEART FAILURE - DIV M [id number] / [id number] / Rv Lead-09/30/2016 Implanted:Qty: 1 on 09/30/2016 by Yimi Carrillo Jr., MD Lead Implant Right: Ventricle [employer] CARDIAC RHYTHM AND HEART FAILURE - DIV M [id number] / [id number] / Lv Lead-09/30/2016 Implanted:Qty: 1 on 09/30/2016 by Yimi Carrillo Jr., MD Lead Implant Left: Ventricle [employer] CARDIAC RHYTHM AND HEART FAILURE - DIV M [id number] / [id number] / Insurance [place] [address] [place] [address] Care Teams Manometer Technician Relationship Specialty Start Date End Date None, Provider, PCP - General UNKNOWN PHYSICIAN SPECIALTY 05/01/23
--- OUTSIDE RECORDS SUMMARY | 2025-04-07 19:21 | XMS_ITS | CONTINUITY OF CARE DOCUMENT ---
Author Name patricia fanypayam Address Unknown Organization [facility] Address [address] [place] [address] Phone [phone] Care Team Providers Care Pump Runner Name Role Phone Lorena MARINO, Yimi Unavailable [phone] JOSEPH MARINO, RUTH F Unavailable JOSEPH MARINO RUTH F [...] uppe r lung lobe active Mae Ventimiglia CHIEF OF PRODUCTION Non-small cell carcinoma of lung active Kelton Carrillo MD ENCOUNTERS Date Type Provider Location Encounter Diag nosis - In-person encounter Office Visit Yimi Carrillo MD [facility] - In-person encounter Office Visit Yimi Carrillo MD [facility] - In-person encounter Office Visit Yimi Carrillo MD [facility] - In-person encounter Office Visit Yimi Carrillo MD [facility] - In-person encounter Office Visit Yimi Carrillo MD [facility] Non-small cell carcinoma of lung - In-person encounter Office Visit Yimi Carrillo MD [facility] Cavitating mass in left upper lung lobe - In-person encounter Office Visit Taryn Bolaños MD [facility] Atrial fibrillation, paroxysmal - In-person encounter Office Visit Yimi Carrillo MD [facility] - In-person encounter Office Visit Yimi Carrillo MD [facility] - In-person encounter Office Visit Yimi Carrillo MD [facility] - In-person encounter Office Visit Yimi Carrillo MD [facility] - In-person encounter Office Visit Yimi Carrillo MD [facility] - In-person encounter Office Visit Yimi Carrillo MD [facility] - In-person encounter Office Visit Soren Beach MD [facility] HemorrhoidsFatigueHypercholesterolemia - In-person encounter Office Visit Soren Beach MD [facility] Congestive heart failureCardiomyopathyCADBiV AICD - MEDTRONIC/Gen change Biotronik ICD 11/04/20/ Gen change Medtronic BiV ICD 01/26/23 ( MRI Safe)Tobacco abuseShortness of breath VITAL SIGNS Date Observation Value Provider Body Mass Index (Ratio) 29.12 kg/m2 Shaka Carrillo MD blood pressure, diastolic 87 mm[Hg] Ying Telles blood pressure, systolic 136 mm[Hg] Lilibeth jean Lyons oxygen saturation, oximetry 98 % Yoko Lyons pulse rate 86 /min Yoko Lyons respiratory rate E&M 12 /[facility] [lb_av] Yoko Lyons height E&M 70 [in_i] [facility], cuff size regular Ying holley Lyons Body Mass Index (Ratio) 30.56 kg/m2 Shaka Carrillo MD blood pressure, diastolic 85 mm[Hg] Ying holley Lyons blood pressure, systolic 141 mm[Hg] Lilibeth jean Lyons oxygen saturation, oximetry 96 % Yoko Lyons pulse rate 78 /min Yoko Lyons respiratory rate E&M 12 /min [facility] E&M 213 [lb_av] Ykoo Lyons height E&M 70 [in_i] [facility], cuff size regular Ying holley Lyons Body Mass Index (Ratio) 29.50 kg/m2 Shaka Carirllo MD blood pressure, cuff size regular Rl Ha blood pressure, diastolic 82 mm[Hg] Rl prakashaisha Ha blood pressure, systolic 138 mm[Hg] Tab ithsanjiv Ha pulse rate 86 /min Donna Leland weight E&M 205.6 [lb_av] Donna Leland oxygen saturation, oximetry 99 % Donna Leland respiratory rate E&M 12 /min Donna Leland height E&M 70 [in_i] Donna Ha Body Mass Index (Ratio) 30.42 kg/m2 Shaka Carrillo MD blood pressure, cuff size regular Ke rri [facility] blood pressure, diastolic 80 mm[Hg] Ke rri Leopoldojose blood pressure, systolic 160 mm[Hg] Adrianne Minaer oxygen saturation, oximetry 97 % Norma Mina respiratory rate E&M 12 /min Norma tabareseldjose pulse rate 84 /min Norma Alexandre [facility] weight E&M 212 [lb_av] Norma Thade [facility] height E&M 70 [in_i] Norma Alexandre [facility] Body Mass Index (Ratio) 29.41 kg/m2 Shaka Carrillo MD blood pressure, diastolic 87 mm[Hg] St lissycassi Pacheco blood pressure, systolic 143 mm[Hg] Ousmane cruzzuleimacassi [place] oxygen saturation, oximetry 97 % Beatriz [place] pulse rate 71 /min Beatriz Calles n weight E&M 205 [lb_av] Beatriz Rebolledoma n respiratory rate E&M 16 /min Arben micah [place] height E&M 70 [in_i] Beatriz Calles n blood pressure, cuff size large camacho [place] Body Mass Index (Ratio) 28.98 kg/m2 Shaka Carrillo MD blood pressure, diastolic 83 mm[Hg] St tanisha Lua blood pressure, systolic 146 mm[Hg] Xi Lua oxygen saturation, oximetry 96 % Vanessa Lua respiratory rate E&M 18 /min Vanesas roldan pulse rate 84 /min Vanessa Lua weight E&M 202 [lb_av] Vanessa Lua height E&M 70 [in_i] Vanessa Lua Body Mass Index (Ratio) 30.13 kg/m2 Dylan Bolaños MD blood pressure, diastolic 78 mm[Hg] Madie nkLogic blood pressure, systolic 127 mm[Hg] Tena kLogic blood pressure, diastolic 78 mm[Hg] Ke rri Gruenemarianneeldjose blood pressure, systolic 127 mm[Hg] Ker ri Gruenenfelder blood pressure, cuff size large Ke rri Gruenenfelder oxygen saturation, oximetry 98 % Norma Tito respiratory rate E&M 16 /min Norma low pulse rate 81 /min Norma Baldomero er weight E&M 210 [lb_av] Norma Thade er height E&M 70 [in_i] Norma Thade er Body Mass Index (Ratio) 29.70 kg/m2 [...] blood pressure, diastolic 60 mm[Hg] Ke rri Jhoanuenemarianneeldjose blood pressure, systolic 122 mm[Hg] Adrianne Francis oxygen saturation, oximetry 98 % Norma Roblerojamesmariannerosa respiratory rate E&M 16 /min Norma Randolph mattaaronrosa pulse rate 79 /min Norma Alexandre lder [...] Arianna Nolan weight E&M 203 [lb_av] Arianna Franciscobel dunia height E&M 70 [in_i] Arianna duque Body Mass Index (Ratio) 27.55 kg/m2 Ramos Juarez blood pressure, diastolic, left arm 80 mm [Hg] blood pressure, systolic, left arm 120 mm [Hg] blood pressure, diastolic, right arm 78 m m[Hg] blood pressure, systolic, right arm 130 m m[Hg] blood pressure, diastolic 80 mm[Hg] Gabe sentara [facility] blood pressure, systolic 120 mm[Hg] Jose winn [place] oxygen saturation, oximetry 98 % respiratory rate E&M 16 /min Bakari [place] pulse rate 89 /min [place] weight E&M 192 [lb_av] [place] height E&M 70 [in_i] Bakari [place] Body Mass Index (Ratio) 27.55 kg/m2 Ramos Juarez blood pressure, diastolic 70 mm[Hg] Da bashir [place] blood pressure, systolic 120 mm[Hg] Dac ia [...] TAKE 1 TABLET BY MOUTH TWICE DAILY [facility] NORCO 7.5-325 MG ORAL TABLET active [...] beatty drug use no Mae Ventimig ana [employer] alcohol use no Mae Ventimig ana [employer] passive cigarette sm elias exposure no Vanessa [...] Lua smoking history, tot al pack/day 1 Vanessajesús Lua cigarette use yes Vanessajesús Lua smoking status Current every day smoker S maamedee Lua social history E&M Marital Statu s: Single [...] O ccupation: Disabled Smoking History: P moriah currently smokes every day. P atrosaline has been counseled to quit. Yimi Carrillo MD social history revie wed E&M reviewed - no changes required Yimi Carrillo MD smoking/tobacco cess ation, patient education and counseling yes Arianna Ovidio number of years as a smoker 31 a Arianna Nolan smoking history, tot al pack/day 1 Arianna Nolan cigarette use yes Arianna Dumont phan smoking status Current every day smoker C carmen Nolan social history revie wed E&M reviewed - no changes required Soren Beach MD number of grandchildren Soren Beach MD Micho[place]ano carranza [place] alcohol use, type occasionally [place] In gram smoking/tobacco cess ation, patient education and counseling yes Bakari Ottoam alcohol use yes [place] number of years as a smoker 31 a Donnie Juarez smoking history, tot al pack/day 1 Bakari [place] cigarette use yes [place] smoking status Current every day smoker Patricio bravo [place] number of years as a smoker 30 a Donnie Juarez social history revie wed E&M reviewed - no changes required Soren Beach MD social history E&M Smoking Histo ry: P moriah currently smokes every day. P moriah has been counseled to quit. Soren Beach [...] (inactive) Management Plan continue current therapy Israel Ahmedzai HRA, CV Assess/Plan, Angina (inactive) Management Plan continue current therapy Mae Lares CHIEF OF [employer] HRA, CV Assess/Plan, Angina (inactive) Management Plan [...] Payer name Policy type / Coverage type Bishop red constitution party ID [facility] COMPLETE CARE [id number] (PPO C-SNP) Commercial insurance company [id number] [facility] Medicaid 2 [id number] ADVANCE DIRECTIVES Name Date DISCUSSED - NO DECISION MADE TREATMENT PLAN Date Name Performer [id number],B, Yimi luke MD [id number],S, Yimi luke MD [id number],B, Yimi luke MD [id number],S, Yimi luke MD [id number],S, Yimi luke MD [id number],N,N eeds MRIs. ICD currently MRI incompatible. Will try and replace generator with medtronic device to restore MRI compatibility. Yimi Carrillo MD [id number],C, H is updated medication list for this problem includes: Repatha Sureclick 140 Mg/ml Pen Injector (Evolocumab) ..... 1 pen injector every two weeks [facility] [id number],C, T he following medications were removed from [...] ..... Take 1 tablet by mouth daily [facility] [id number],C,r ecent new mass in [place] with lymphadenopathy. Patient is hesistant to pursue biopsy and treatment. Patient functional and overall well at this time. Have referred for second opinion which patient agreeable to. He will f/u post biopsy or sooner if needed. [facility] [id number],C,B IVICD in place. compensated T he following [...] ..... Take 1 tablet by mouth daily [facility] [id number],CTaryn MD [id number],C, H is updated medication list for this [...] tablet by mouth daily Taryn Bolaños MD [id number],S,e cho 07/2022 EF 52% His updated medication [...] tablet by mouth daily Taryn Bolaños MD [id number],C, n ormal function Taryn Bolaños MD [id number],N, n ew onset afib s xs of [...] 1 tablet by mouth daily Wilfredo Sierra [id number],S, T he Patient was reencouraged to stop smoking. Wilfredo Mariela [id number],S,e fabrizio 07/2022 EF 52% His updated medication list for this problem includes: Carvedilol 12.5 Mg Tablet (Carvedilol) ..... Take 1 tablet by mouth twice daily Lisinopril 10 Mg Tablet (Lisinopril) ..... Take 1 tablet by mouth daily Spironolactone 25 Mg Tablet (Spironolactone) ..... Take 1 tablet by mouth daily Wilfredo Mariela [id number],C, n ormal function Wilfredo Sierra [id number],S, Yimi luke MD [id number],S, Yimi luke MD [id number],S, Yimi Ramxiomy luke MD [id number],S, Yimi Ramxiomy luke MD [id number],S, Yimi luke MD [id number],S, Yimi Ramada n [id number],S, Yimi Ramada n [id number],S, Yimi Ramada marly MARINO [id number],S, Yimi Ramada n [id number],S, Yimi luke MD Cardiology Yimi Carrillo MD [...] he says is same as with previous [place]. P moriah has history of coronary atherosclerosis, [...] him from sleep. Israel Young Cardiology:Reviewed cessation Ri sarah Young Cardiology: H is updated medication list for this problem includes: Repatha Sureclick 140 Mg/ml Pen Injector (Evolocumab) ..... Inject 1 pen injector subcutaneously once every two weeks Israel Hector Cardiology:Following Oncology an d is stable Israelchikis Young Cardiology:AF burden 0% from recent device [...] Yimi Carrillo MD Cardiology Yimi Carrillo MD [id number]|2025-04-07 19:19:00|2025-04-07 19:18:00|XMS_ITS|KAY RUFF|External Medical Summaries|[id number]|" Clinical Summary Created on: April 07, 2025 Iona Jackson : 1965 Sex: Male Author Organization [facility] [address] Address [address] [place] [address] Care Team Providers Care Pump Runner Name Role Phone Ruth Argueta MD Primary Care Provider Tashi Duran MD Unavailable [phone] Skyler Sun MD PhD Unavailable [phone] Lorena Coronado MD, Yimi Mayer Unavailable [phone] William Marte MD Unavailable [phone] Shira Nichole MD Unavailable Allergies No known active allergies Medications ALPRAZolam [...] cyst. He underwent pulmonary function testing at [facility]. These results are still pending. [...] Department Care Team Description 01/23/2025 1:00 PM HANDS ASSEMBLER Office Visit [facility] [address] [place] [id number] Skyler Sun MD PhD Malignant neoplasm of upper lobe of left lung (HCC) (Primary Dx); Other fatigue 01/23/2025 11:22 AM HANDS ASSEMBLER - 01/23/2025 11:59 PM HANDS ASSEMBLER Hospital Encounter [facility] Medical Office Building [address] [place] [address] Malignant neoplasm of upper lobe of left lung (HCC) Discharge Disposition: Discharge to home or self care 01/23/2025 10:45 AM HANDS ASSEMBLER Clinical Support [facility] at [address] [address] Malignant neoplasm of upper lobe of left [...] on file Legal Sex Male 8:49 AM HANDS ASSEMBLER Gender Identity Not on file Sexual Orientation Not on file Obstetrics History Last Filed Vital Signs Vital Sign Reading Time Taken Comments Blood Pressure 110/76 01/23/2025 1:14 PM HANDS ASSEMBLER Pulse 86 01/23/2025 1:14 PM HANDS ASSEMBLER Temperature 37 C (98.6 F) 01/23/2025 1:14 PM HANDS ASSEMBLER Respiratory Rate 18 01/23/2025 1:14 PM HANDS ASSEMBLER Oxygen Saturation 96% 01/23/2025 1:14 PM HANDS ASSEMBLER Inhaled Oxygen Concentration - - Weight 91.9 kg (202 lb 9.6 oz) 01/23/2025 1:14 P M HANDS ASSEMBLER Height 172.7 cm (5' 8 ) 01/23/2025 1:14 PM HANDS ASSEMBLER Body Mass Index 30.81 01/23/2025 1:14 PM HANDS ASSEMBLER Plan of Treatment Health Maintenance Due Date [...] Discontinued Colon Cancer Screening-DNA Stool Discontinued 02/28/20 Colon Cancer Screening-FIT Discontinued 02/28/2024 Colon Cancer Screening-Sigmoidoscopy Discontinued 06/2024 Medical Devices Implanted Type Area Information Clerk Cashier Device Identifier Shelf Expiration Date Model / Serial / Lot Ra Lead-09/30/20 16 Implanted:Qt y: 1 on 09/30/2016 by Yimi Carrillo Jr., MD Lead Right: Atria Medtronic Cardiac Rhythm Mgmt 5076-52 MARCY / [id number] / Rv Lead-09/30/20 16 Implanted:Qt y: 1 on 09/30/2016 by Yimi Carrillo Jr., MD Lead Right: Ventricle Medtronic Cardiac Rhythm Mgmt 6935M-62 / [id number] / Lv Lead- 016 Implanted:Qt y: 1 on 09/30/2016 by Yimi Carrillo Jr., MD Lead N/A: Coronary Sinus Medtronic Cardiac Rhythm Mgmt 4598-88 / [id number] / Medtronic Inc Cardiac Brinson Hf 2 Chamber Df4 Inline Cnctr Is4 [id number] - [id number] - [id number] Implanted:Qt y: 1 on 01/26/2023 by Yimi Carrillo Jr., MD at [facility] Left: Chest Medtronic Inc [id number] 05/19/2024 [id number] Q / [id number] / Ang[employer] Xcela Power Port 8fr [id number] - [id number] Implanted:Qt y: 1 on 02/11/2023 at [facility] Angio Dynamics 09/27/2027 [id number] / / [id number] Explanted Type Area Information Clerk Cashier Device Identifier Shelf Expiration Date Model / Serial / Lot Biotronik Icd Generator Explanted:Qty: 1 on 01/26/2023 by Yimi Carrillo Jr., MD at [facility] Left: Chest Biotronik / [id number] / Procedures Procedure Name Priority Date/Time Associated Diagnosis Comments CT CHEST ABDOMEN W CONTRAST Schedule Routine, Read Routine (OP Routine) 01/23/2025 11:30 AM HANDS ASSEMBLER Malignant neoplasm of upper lobe of left lung (HCC) THYROID FUNCTION CASCADE Routine 01/23/2025 11:11 AM HANDS ASSEMBLER Malignant neoplasm of upper lobe of left lung (HCC) Other fatigue TOTAL TESTOSTERONE Routine 01/23/2025 11 :11 AM HANDS ASSEMBLER Malignant neoplasm of upper lobe of left lung (HCC) Other fatigue EGFR Routine 01/23/2025 11:11 AM HANDS ASSEMBLER Malignant neoplasm of upper lobe of left lung (HCC) DIFFERENTIAL AUTO Routine 01/23/2025 11: 11 AM HANDS ASSEMBLER Malignant neoplasm of upper lobe of left lung (HCC) CBC WITH AUTO DIFFERENTIAL Routine 01/23/2025 11:11 AM HANDS ASSEMBLER Malignant neoplasm of upper lobe of left lung (HCC) COMPREHENSIVE METABOLIC PANEL Routine 01/23/2025 11:11 AM HANDS ASSEMBLER Malignant neoplasm of upper lobe of left lung (HCC) COLONOSCOPY Routine 02/28/2024 2:03 PM CDT from Last 3 Months or Most Recently Relevant to Health Maintenance Results * CT Chest Abdomen W Contrast (01/23/2025 11:30 AM HANDS ASSEMBLER) Anatomical Region Laterality Modality Body N/A Computed Tomogra phy 01/26/2025 9:41 AM HANDS ASSEMBLER Narrative 01/26/2025 10:01 AM HANDS ASSEMBLER EXAM DESCRIPTION: CT CHEST ABDOMEN W CONTRAST [...] Dallas Aldana M.D. AG: LEONOR Report ID: [id number] Reading Location: [id number] Procedure Note Dallas Aldana MD - 01/26/2025 [...] Dallas Aldana M.D. AG: LEONOR Report ID: [id number] Reading Location: [place] [address] Skyler Sun MD PhD IMG CT PROCEDURES Fin al Result * eGFR (01/23/2025 11:11 AM HANDS ASSEMBLER) eGFR >90 >=60 mL/min/1. 73 m2 Comment: [...] was last reviewed 2021. Testing performed by: [facility], [address] [place] [address]., [address] Blood 01/23/2025 11:1 1 AM HANDS ASSEMBLER 01/23/2025 11:13 AM HANDS ASSEMBLER us Skyler Sun MD PhD LAB BLOOD ORDERABLES Final Result EMPERATRIZ [address] [facility] Department [place] [address] * Differential, auto (01/23/2025 11:11 AM HANDS ASSEMBLER) Neutrophil abs 6.2 1.5 - 6.5 K/cumm Comment:Testing performed by : [address] [address] Imm gran abs 0.0 0.0 - 0.1 K/cumm EMPERATRIZ Comment:Testing performed by : [address] [address] Lymphocyte abs 1.4 0.8 - 3.3 K/cumm EMPERATRIZ Comment:Testing performed by : [address] [address] Monocyte abs 0.6 0.2 - 0.8 K/cumm EMPERATRIZ Comment:Testing performed by : [address] [address] Eosinophil abs 0.3 0.0 - 0.5 K/cumm EMPERATRIZ Comment:Testing performed by : [address] [address] Basophil abs 0.1 0.0 - 0.1 K/cumm EMPERATRIZ Comment:Testing performed by : [address] [address] Neutrophil pct 72.7 % [facility] Comment: Interpretive Data Percent cell count reference ranges are not reported, since discordance with absolute values may lead to misinterpretation of CBC data. Current Interpretive Data was last revised on 2018. Testing performed by: [address] [address] Imm gran pct 0.4 % EMPERATRIZ Comment: Interpretive Data Percent cell count reference ranges are not reported, since discordance with absolute values may lead to misinterpretation of CBC data. Current Interpretive Data was last revised on 2018. Testing performed by: [address] [address] Lymphocyte pct 15.9 % [facility] Comment: Interpretive Data Percent cell count reference ranges are not reported, since discordance with absolute values may lead to misinterpretation of CBC data. Current Interpretive Data was last revised on 2018. Testing performed by: [address] [address] Monocyte pct 6.5 % [facility] Comment: Interpretive Data Percent cell count reference ranges are not reported, since discordance with absolute values may lead to misinterpretation of CBC data. Current Interpretive Data was last revised on 2018. Testing performed by: [address] [address] Eosinophil pct 3.9 % [facility] Comment: Interpretive Data Percent cell count reference ranges are not reported, since discordance with absolute values may lead to misinterpretation of CBC data. Current Interpretive Data was last revised on 2018. Testing performed by: [address] [address] Basophil pct 0.6 % [facility] Comment: Interpretive Data Percent cell count reference ranges are not reported, since discordance with absolute values may lead to misinterpretation of CBC data. Current Interpretive Data was last revised on 2018. Testing performed by: [address] [address] Blood 01/23/2025 11:1 1 AM HANDS ASSEMBLER 01/23/2025 11:13 AM HANDS ASSEMBLER us Skyler Sun MD PhD LAB BLOOD ORDERABLES Final Result [facility]MP[facility]Z [place] [address] [facility] [place] [address] * Thyroid Function [place] (01/23/2025 11:11 AM HANDS ASSEMBLER) TSH 1.23 0.30 - 4.20 mcIUnit/mL Comment:Testing performed by : [address] [place] [address] Blood 01/23/2025 11:1 1 AM HANDS ASSEMBLER 01/23/2025 4:19 PM HANDS ASSEMBLER us Skyler Sun MD PhD LAB BLOOD ORDERABLES Final Result [facility] [address] [facility] Department [place] [address] * CBC with auto differential (01/23/2025 11:11 AM HANDS ASSEMBLER) WBC 8.5 3.8 - 9.9 K/cumm Comment:Testing performed by : [address] [address] Hgb 14.9 13.0 - 17.5 g/dL EMPERATRIZ Comment:Testing performed by : [address] [address] Hct 42.9 38.9 - 50.3 % EMPERATRIZ Comment:Testing performed by : [address] [address] Plt 199 150 - 400 K/cumm EMPERATRIZ Comment:Testing performed by : [address] [address] MPV 10.0 9.1 - 12.3 fL EMPERATRIZ Comment:Testing performed by : [address] [address] RBC 4.62 4.30 - 5.80 M/cumm EMPERATRIZ Comment:Testing performed by : [address] [address] MCV 92.9 81.3 - 96.4 fL EMPERATRIZ Comment:Testing performed by : [address] [address] MCH 32.3 27.1 - 33.3 pg EMPERATRIZ SCOTT Comment:Testing performed by : [address] [address] MCHC 34.7 32.3 - 35.7 g/dL EMPERATRIZ SCOTT Comment:Testing performed by : [address], [address] RDW CV 13.1 11.1 - 14.9 % EMPERATRIZ SCOTT Comment:Testing performed by : [address] [address] RDW SD 44.6 35.7 - 48.1 fL EMPERATRIZ SCOTT Comment:Testing performed by : [facility], [address] [place] [address]., [address] NRBC abs 0.00 0.00 - 0.01 K/cumm EMPERATRIZ SCOTT Comment:Testing performed by : [address], [address] Blood 01/23/2025 11:1 1 AM HANDS ASSEMBLER 01/23/2025 11:13 AM HANDS ASSEMBLER Skyler Sun MD PhD LAB BLOOD ORDERABLES Final Result Performing Organization Address [facility] de Phone Number [address] [place] [address] * Total testosterone (01/23/2025 11:11 AM HANDS ASSEMBLER) Pathologist [facility] Testosterone 729.00 193.00 - 740.00 ng/dL Blood 01/23/2025 11:1 1 AM HANDS ASSEMBLER 01/23/2025 5:07 PM HANDS ASSEMBLER Skyler Sun MD PhD LAB BLOOD ORDERABLES Final Result Performing Organization Address [facility] de Phone Number [address] [place] [address] * (ABNORMAL) Comprehensive metabolic panel (01/23/2025 11:11 AM HANDS ASSEMBLER) Sodium 136 135 - 145 mmol/L Comment:Testing performed by : [address], [address] Potassium, pl 4.4 3.3 - 4.9 mmol/L EMPERATRIZ SCOTT Comment:Testing performed by : [address], [address] Chloride 100 97 - 110 mmol/L EMPERATRIZ SCOTT Comment:Testing performed by : [facility], [address] [place] [address], [address] CO2 25 22 - 32 mmol/L EMPERATRIZ SCOTT Comment:Testing performed by : [facility], [facility]
--- NOTE | 2025-04-07 19:26 | ED_ITS ---
HPI - General Adult General Chief complaint: Upper Respiratory Infection Stated complaint: chest congestion Time Seen by Provider: 04/07/25 19:27 Source: patient Mode of arrival: ambulatory Limitations: no limitations History of Present Illness HPI narrative: 59-year-old male patient presents to [facility] with complaints of cold and cough that started approximately 1 week ago. Patient states he did call his [facility] doctor a discussed symptoms with him he was not seen by his primary doctor did call image a Zithromax 10 and he was also placed on Augmentin from a previous provider. Patient states he has 2 days left of the antibiotic but continues to have a cough and some shortness of breath. Patient has significant past medical history includes small cell lung cancer and CHF. Related Data Home Medications Medication Instructions Recorded Confirmed Last Taken Type aspirin 81 mg tablet 81 mg PO DAILY 03/26/21 04/07/25 04/03/21 History carvedilol 12.5 mg tablet (Coreg) 12.5 mg PO Q12H 08/25/21 04/07/25 02/28/24 History Allergies Allergy/AdvReac Type Severity Reaction Status Date / Time No Known Allergies Allergy Unknown Verified 04/07/25 19:38 Review of Systems Review of Systems: CONSTITUTIONAL: Denies fever, chills, or sweats. EYES: Denies visual changes, redness, or discharge. ENT: Denies rhinorrhea, positive congestion, deniessore throat, or otalgia. CARDIOVASCULAR: Denies chest pain, palpitations, or edema. RESPIRATORY: Positive cough with dyspnea. GASTROINTESTINAL: Denies abdominal pain, nausea, vomiting, or diarrhea. GENITOURINARY: Denies dysuria or hematuria. SKIN: Denies rash or itching. MUSCULOSKELETAL: Denies back pain, joint pain, or myalgia. NEUROLOGIC: Denies headache, numbness, or weakness. PSYCHIATRIC: Denies anxiety or depression. [facility] Past Medical History Medical History Left inguinal hernia Lesion of lumbar spine Lesion of pelvic bone Abdominal pain Left hip pain Medial epicondylitis, right elbow Port-A-Cath in place Tinea pedis Post-traumatic osteoarthritis, right wrist Scaphoid fracture of wrist Non-small cell cancer of left lung Mass of lung Cough Hoarse voice quality GERD without esophagitis Screening for prostate cancer Pacemaker CHF (congestive heart failure) Tobacco abuse Deviated septum Osteoarthritis of ankle, right Anemia Anxiety disorder, unspecified Cardiomyopathy Idiopathic gout Mixed hyperlipidemia Surgical History Surgical History Status post hernia repair History of bronchoscopy History of appendectomy Family History Family History Father Heart disease Mother A-fib Diabetes mellitus Sibling Non-Hodgkin lymphoma Sibling , chf No problems noted. Social History Social History Social History: pt has quit smoking cigarettes- pt is vaping Smoking packs per day: 1 Smoking cigarettes per day: 20.0 Years smoked: 40 Smoking pack-years: 40.00 Smoking status: Former smoker Tobacco type: cigarettes Second hand tobacco smoke exposure: Yes Smoking end date: 11/23/22 Alcohol intake: current Drinks per week: 4 Alcohol use details: occas beer Substance use: never Substance use type: does not use Do You Feel Safe in your Home?: Yes Lack of Transportation: No Lack of Food: Never True Current Housing: I Have Housing Concerned About Future Housing: No Difficulty Paying Gas/Electric Bills: No Difficulty Paying for Meds: No Currently Unemployed: No Education: Master's Degree or Higher Difficulty w/ Childcare or Family Care: No Living arrangements: with roommate(s) Occupation/Education: retired Additional occupation/education comments: [employer] Gender identity (if verbalized by the patient): Male Spiritual care concerns: No Exam Narrative: GENERAL: Well-appearing, well-nourished, and in no acute distress. HEAD: Normocephalic, atraumatic. EYES: PERRLA and EOMI. ENT: Nares clear, no rhinorrhea or epistaxis. Mucous membranes moist. NECK: Supple. No lymphadenopathy CHEST: patient has slight inspiratory wheezing noted to bilateral upper lobes. No respiratory distress. patient able to talk in clear complete sentences. Patient does have cough noted during exam. No tripoding noted. HEART: Regular rate and rhythm. No murmur heard. Normal peripheral pulses. ABDOMEN: Soft, nontender, nondistended, normal active bowel sounds. EXTREMITIES: Normal range of motion. No edema. SKIN: Warm, dry, no rash. NEURO: No focal deficits. Alert and oriented x3. Course Course Level of Care: Express Care Visit Vital Signs Vital signs: Vital Signs Temperature 36.5 C 04/07/25 19:39 Pulse Rate 86 04/07/25 19:39 Respiratory Rate 20 04/07/25 19:39 Blood Pressure 130/66 04/07/25 19:39 Pulse Oximetry 97 04/07/25 19:39 Oxygen Delivery Room Air 04/07/25 19:39 Temperature 36.5 C 04/07/25 19:39 Pulse Rate 86 04/07/25 19:39 Respiratory Rate 20 04/07/25 19:39 Blood Pressure 130/66 04/07/25 19:39 Pulse Oximetry 97 04/07/25 19:39 Oxygen Delivery Room Air 04/07/25 19:39 Vital signs reviewed. Medical Decision Making MDM Narrative Medical decision making narrative: Discussed with patient that we are past the time we can do any swabbing for COVID or flu. Discussed with patient that he is already been put on treatment for possible pneumonia but we will go ahead and give him some steroids and albuterol and Tessalon Perles to help with the coughing. Discussed with patient he can take albuterol inhaler as needed but he needs to limit it since it is a beta agonist and he is on a beta the kade. Discussed with patient he needs to follow up with his primary doctor if he continues to have worsening symptoms. Differential Diagnosis Differential Diagnosis: Differential diagnosis: Allergic rhinitis, chronic sinusitis, tonsillitis, acute sinusitis, infectious mononucleosis, seasonal influenza, pertussis, diphtheria, meningococcal disease, viral syndrome, viral bronchitis, RSV, COVID- 19 Vital Signs Vital Signs: Vital Signs Temperature 36.5 C 04/07/25 19:39 Pulse Rate 86 04/07/25 19:39 Respiratory Rate 04/07/25 19:39 Blood Pressure 130/66 04/07/25 19:39 Pulse Oximetry 97 04/07/25 19:39 Oxygen Delivery Room Air 04/07/25 19:39 Temperature 36.5 C 04/07/25 19:39 Pulse Rate 86 04/07/25 19:39 Respiratory Rate 20 04/07/25 19:39 Blood Pressure 130/66 04/07/25 19:39 Pulse Oximetry 97 04/07/25 19:39 Oxygen Delivery Room Air 05/17/25 19:39 Critical Care Time Critical Care Time Critical Care Time: No Discharge Plan Discharge Clinical Impression: Acute bronchitis, viral Patient Disposition: Home Condition: Stable Instructions: Antibiotic Form Additional Instructions: Acute bronchitis is swelling and irritation in the air passages of your lungs. This irritation may cause you to cough or have other breathing problems. Acute bronchitis often starts because of another viral illness, such as a cold or the flu. The illness spreads from your nose and throat to your windpipe and airways. Bronchitis is often called a chest cold. Acute bronchitis lasts about 2-6 weeks and is usually not a serious illness. AFTER YOU LEAVE: Medicines: Ibuprofen or acetaminophen: These medicines help lower a fever. They are available without a doctor's order. Ask your healthcare provider which medicine is right for you. Ask how much to take and how often to take it. Follow directions. These medicines can cause stomach bleeding if not taken correctly. Ibuprofen can cause kidney damage. Do not take ibuprofen if you have kidney disease, an ulcer, or allergies to aspirin. Acetaminophen can cause liver damage. Do not drink alcohol if you take acetaminophen. Cough medicine: This medicine helps loosen mucus in your lungs and make it easier to cough up. This can help you breathe easier. Inhalers: You may need one or more inhalers to help you breathe easier and cough less. An inhaler gives your medicine in a mist form so that you can breathe it into your lungs. Ask your healthcare provider to show you how to use your inhaler correctly. Steroid medicine: Steroid medicine helps open your air passages so you can breathe easier. Take your medicine as directed. Call your healthcare provider if you think your medicine is not helping or if you have side effects. How to use an inhaler: Shake the inhaler well to make sure you get the correct amount of medicine per puff. Remove the cover from your inhaler's mouthpiece. If you are using a spacer, connect your inhaler to the flat end of the spacer. Exhale as much air from your lungs as you can. Put the mouthpiece in your mouth past your front teeth and rest it on the top of your tongue. Do not block the m outhpiece opening with your tongue. Breathe in through your mouth at a slow and steady rate. As you do this, press the inhaler to release the puff of medicine. Finish breathing in slowly and deeply as you inhale the medicine. When your lungs are full, hold your breath for 10 seconds. Then breathe out slowly through puckered lips or through your nose. If you need to take more puffs, wait at least 1 minute between each puff. Rinse your mouth with water after you use the inhaler. This may keep you from getting a mouth infection or irritation. Follow the instructions that come with your inhaler to clean it. You should clean your inhaler at least once a week. Ways to care for yourself: Avoid alcohol: Alcohol dulls your urge to cough and sneeze. When you have bronchitis, you need to be able to cough and sneeze to clear your air passages. Alcohol also causes your body to lose fluid. This can make the mucus in your lungs thicker and harder to cough up. Avoid irritants in the air: Do not smoke or allow others to smoke around you. Avoid chemicals, fumes, and dust. Wear a face mask if you must work around dust or fumes. Stay inside on days when air pollution levels are high. If you have allergies, stay inside when pollen counts are high. Avoid aerosol products. This includes spray-on deodorant, bug spray, and hair spray. Drink more liquids: Most people should drink at least 8 eight-ounce cups of water a day. You may need to drink more liquids when you have acute bronchitis. Liquids help keep your air passages moist and help you cough up mucus. Get more rest: You may feel like resting more. Slowly start to do more each day. Rest when you feel it is needed. Eat healthy foods: Eat a variety healthy foods every day. Your diet should include fruits, vegetables, breads, and protein (such as chicken, fish, and beans). Dairy products (such as milk, cheese, and ice cream) can sometimes increase the amount of mucus your body makes. Ask if you should decrease your intake of dairy products. Use a humidifier: Use a cool mist humidifier to increase air moisture in your home. This may make it easier for you to breathe and help decrease your cough. Decrease your risk of acute bronchitis: Get the vaccinations you need: Ask your healthcare provider if you should get vaccinated against the flu or pneumonia. Avoid things that may irritate your lungs: Stay inside or cover your mouth and nose with a scarf when you are outside during cold weather. You should also stay inside on days when air pollution levels are high. If you have allergies, stay inside when pollen counts are high. Avoid using aerosol products in your home. This includes spray-on deodorant, bug spray, and hair spray. Avoid the spread of germs: Wash your hands often with soap and water. Carry germ-killing gel with you. You can use the gel to clean your hands when there is no soap and water available. Do not touch your eyes, nose, or mouth unless you have washed your hands first. Always cover your mouth when you cough. Cough into a tissue or your shirtsleeve so you do not spread germs from your hands. Try to avoid people who have a cold or the flu. If you are sick, stay away from others as much as possible. Follow up with your healthcare provider as directed: Write down questions you have so you will remember to ask them during your follow-up visits. Contact your healthcare provider if: You have a fever. Your skin becomes itchy or you have a rash after you take your medicine. Your breathing problems do not go away or get worse. Your cough does not get better with treatment. You cough up blood. You have questions or concerns about your condition or care. Seek care immediately or call 911 if: You faint. Your lips or fingernails turn blue. You feel like you are not getting enough air when you breathe. You have swelling of your lips, tongue, or throat that makes it hard to breathe or swallow. Patient Language: Martiniquais Prescriptions: New benzonatate 200 mg capsule 200 mg PO TID PRN (Reason: cough) 10 Days Qty: 30 0RF prednisone 20 mg tablet 40 mg PO DAILY 5 Days Qty: 10 0RF albuterol sulfate [Ventolin HFA] 90 mcg/actuation HFA aerosol inhaler 2 puff INHALATION Q4H PRN (Reason: cough) Qty: 18 0RF prednisone 20 mg tablet 40 mg PO DAILY Qty: 42 0RF Rx Instructions: 60 mg daily x1 week, 40 mg daily x1 week, 20 mg daily x1 week prednisone 10 mg tablets,dose pack See Rx Instructions .ROUTE .COMPLEX Qty: 48 0RF Rx Instructions: 50 mg x 3 days, 40 mg x 3 days, 30 mg x 3 days, 20 mg x 3 days, 10 mg x 3 days albuterol sulfate [Ventolin HFA] 90 mcg/actuation HFA aerosol inhaler 2 puff INHALATION Q4H PRN (Reason: cough) Qty: 18 0RF benzonatate 200 mg capsule 200 mg PO TID PRN (Reason: cough) 10 Days Qty: 30 0RF prednisone 20 mg tablet 40 mg PO DAILY Qty: 42 0RF Rx Instructions: 60 mg daily x1 week, 40 mg daily x1 week, 20 mg daily x1 week albuterol sulfate [Ventolin HFA] 90 mcg/actuation HFA aerosol inhaler 2 puff INHALATION Q4H PRN (Reason: cough) Qty: 18 0RF No Action carvedilol [Coreg] 12.5 mg tablet 12.5 mg PO Q12H Rx Instructions: must administer with a meal/food Narcan 4 mg/actuation spray,non-aerosol 4 mg NASAL Q2M PRN (Reason: opioid overdose) Qty: 2 0RF Rx Instructions: spray 1 dose into ONE nostril; alternate nostrils w each dose until help arrives fluticasone propionate 50 mcg/actuation spray,suspension 1 spray intranasal DAILY Qty: 16 0RF Rx Instructions: administer into each nostril aspirin 81 mg Tablet 81 mg PO DAILY Wegovy 0.25 mg/0.5 mL pen injector 0.25 mg subcut WEEKLY Qty: 2 0RF Rx Instructions: administer weeks 1 through 4 of therapy the increase dose nicotine 21 mg/24 hr patch 24 hour 1 patch transdermal DAILY Qty: 28 0RF esomeprazole magnesium 40 mg capsule,delayed release(DR/EC) 40 mg PO DAILY Qty: 90 0RF alprazolam 1 mg tablet 1 mg PO TID PRN (Reason: anxiety) Qty: 90 0RF hydrocodone-acetaminophen 10-325 mg tablet 1 tablet PO Q4-6H PRN (Reason: pain) Qty: 150 0RF Patient Comments: 1/2 pill Rx Instructions: No more than 5 a day azithromycin 250 mg tablet See Rx Instructions PO .COMPLEX Qty: 6 0RF Rx Instructions: take 500 mg today (day 1), then 250 mg for 4 days (days 2-5) PO Follow-up/Referrals: UNKNOWN,DOCTOR [Primary Care Provider] - Time of Disposition: 20:05
[2025-04-07 19:39] VITALS: BP 130/66; PULSE 86; RESP 20; TEMP 36.5; O2SAT 97
== END 2025-04-07 20:13 | disposition home or self-care (01) ==
PROVIDERS: Emergency Provider Nurse Practitioner Family
DX: J20.8 Acute bronchitis due to other specified organisms (principal); K21.9 Gastro-esophageal reflux disease without esophagitis; I50.9 Heart failure, unspecified; Z95.0 Presence of cardiac pacemaker; M19.071 Primary osteoarthritis, right ankle and foot; I42.9 Cardiomyopathy, unspecified; M10.00 Idiopathic gout, unspecified site; E78.2 Mixed hyperlipidemia; F41.9 Anxiety disorder, unspecified; Z85.118 Personal history of other malignant neoplasm of bronchus and lung; Z79.82 Long term (current) use of aspirin
CPT/HCPCS: 99213; G0463

== ENCOUNTER 2025-04-11 14:40 | Outpatient (CLI) | payer MEDICARE, MEDICAID, SELFPAY ==
--- NOTE | ~2025-04-11 | XR_ITS ---
CHEST RADIOGRAPH, PA AND LATERAL CLINICAL HISTORY: r/o pneumonia . COMPARISON: 01/13/2021 TECHNIQUE: PA and lateral views of the chest. FINDINGS The left mid lung is partially obscured due to AICD generator. Wires project over the right atrium, coronary sinus and right ventricle. Right internal jugular central venous port catheter identified with its tip projecting over the right atrium. The remainder of the cardiomediastinal silhouette is otherwise unremarkable. Increased interstitial markings are identified within the left lung apex, along the mediastinum. This finding suggests either air bronchograms within an infiltrate, versus post radiation change for whic h clinical correlation is needed. IMPRESSION: Findings within the left upper lobe, medially along the mediastinum which represent air bronchograms within an infiltrate, versus post radiation change for which clinical correlation is needed. Reviewed, dictated and finalized at location A. IMPRESSION: Findings within the left upper lobe, medially along the mediastinum which repre sent air bronchograms within an infiltrate, versus post radiation change for wh ich clinical correlation is needed.
--- OUTSIDE RECORDS SUMMARY | 2025-04-11 14:51 | XMS_ITS | Encounter Summary ---
Author Organization [facility] [place] Address [address] [place] [address] Phone Care Team Providers Care Awning Erector Name Role Phone Gordon Argueta MD Primary Care Provider + [phone] Margaret Greene MD Unavailable [phone] Tashi Duran MD Unavailable [phone] Skyler Sun MD PhD Unavailable [phone]- [phone] Naveed Vance MD Unavailable [phone] Lorena Coronado MD, Yimi PChris Unavailable [phone] William Marte MD Unavailable [phone] Shira Nichole MD Unavailable [phone] Sihra Nichole MD Unavailable [phone] Encounter Details Date Type Department Care Team (Late st Contact Info) Description 10/11/2016 Orders Only [facility] ProviderAngela MD [address] [place] [id number] Social History Tobacco Use Types Packs/Day Years Used Date Smoking Tobacco: Never Assessed Sex and Gender Information Value Date Recorded Sex Assigned at Not on file 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 Gender Identity Not on file Sexual [...] on filedocumented in this encounter Care Teams Awning Erector Relationship Specialty Start Date End Date Gordon Argueta MD PCP - General 01/19/13 Margaret Greene MD [address] [place] [address] Consulting Physician Pulmonary Disease 12/15/22 3 3 Tashi Duran MD [address] [place] [address] [id number] Consulting Physician Pulmonary Disease 12/15/22 Skyler Sun MD PhD [address] [place] [address] MEDICAL ONCOLOGY, [address] [id number] Medical Oncologist/Rn Flight Medical Oncology 01/28/23 Naveed Vance MD [address] [place] [address] MEDICAL ONCOLOGY, [address] [id number] Consulting Physician Thoracic Surgery 01/28/23 02/06/23 Yimi Carrillo Jr., MD [address] [place] [address] Cigar Making Supervisor Cardiovascular Disease 01/28/23 [place] [id number] [place] [address] Referring Physician Pulmonary Disease 01/28/23 [place] [address] [facility] [address] [place] [address] Radiation Oncologist Radiation Oncology 02/10/2311/13 Shira Nichole MD [address] [address] Radiation Oncologist Radiation Oncology 11/14/24 documented as of this encounter
--- OUTSIDE RECORDS SUMMARY | 2025-04-11 14:51 | XMS_ITS | CONTINUITY OF CARE DOCUMENT ---
Author Name patricia gomez Address Unknown Organization [facility] Address [address] [place] [address] Phone [phone] Care Team Providers Care Nut Sorter Operator Name Role Phone Lorena MARINO, Yimi Unavailable JOSEPH MARINO, RUTH F Unavailable JOSEPH MARINO RUTH F Unavailable PROBLEMS Condition Status Date Provider Notes Non-small cell carcinoma of lung active Kelton Carrillo MD Cavitating mass in left uppe r lung lobe active Mae Ventimiglia RIVET HOLE PUNCHER Atrial fibrillation, paroxysmal active Alexy b Nacht Hypercholesterolemia active Donnie Rangel erg Fatigue active Soren Beach MD Hemorrhoids active Soren Beach MD Shortness of breath active Donnie Molina rg Tobacco abuse active Soren Beach MD BiV AICD - MEDTRONIC/Gen eliezer nge Biotronik ICD 11/04/20/ Gen change Medtronic BiV ICD 01/26/23 ( MRI Safe) active Coreen Barrow ran CAD active Soren Beach MD Cardiomyopathy active Soren Beach MD Congestive heart failure active Soren Beach MD ENCOUNTERS Date Type Provider Location Encounter Diag nosis - In-person encounter Office Visit Yimi Carrillo MD [place] [facility] - In-person encounter Office Visit Yimi Carrillo MD [place] [facility] - In-person encounter Office Visit Yimi Carrillo MD [place] [facility] - In-person encounter Office Visit Yimi Carrillo MD [facility] - In-person encounter Office Visit Yimi Carrillo MD [place] [facility] Non-small cell carcinoma of lung - In-person encounter Office Visit Yimi Carrillo MD [place] [facility] Cavitating mass in left upper lung lobe - In-person encounter Office Visit Taryn Bolaños MD [facility] Atrial fibrillation, paroxysmal - In-person encounter Office Visit Yimi Carrillo MD [place] [facility] - In-person encounter Office Visit Yimi Carrillo MD [place] [facility] - In-person encounter Office Visit Yimi Carrillo MD [place] [facility] - In-person encounter Office Visit Yimi Carrillo MD [place] [facility] - In-person encounter Office Visit Yimi Carrillo MD [place] [facility] - In-person encounter Office Visit Yimi Carrillo MD [place] [facility] - In-person encounter Office Visit Soren Beach MD [place] [facility] HemorrhoidsFatigueHypercholesterolemia - In-person encounter Office Visit Soren Beach MD [place] [facility] Congestive heart failureCardiomyopathyCADBiV AICD - MEDTRONIC/Gen change Biotronik ICD 11/04/20/ Gen change Medtronic BiV ICD 01/26/23 ( MRI Safe)Tobacco abuseShortness of breath VITAL SIGNS Date Observation Value Provider Body Mass Index (Ratio) 29.12 kg/m2 Shaka Carrillo MD blood pressure, diastolic 87 mm[Hg] Ying Telles blood pressure, systolic 136 mm[Hg] Lilibeth jean Gaston oxygen saturation, oximetry 98 % Yoko Gaston pulse rate 86 /min Yoko Gaston respiratory rate E&M 12 /[facility] 203 [lb_av] Yoko Gaston height E&M 70 [in_i] [facility], cuff size regular Ying holley Gaston Body Mass Index (Ratio) 30.56 kg/m2 Shaka Carrillo MD blood pressure, diastolic 85 mm[Hg] Ying holley Gaston blood pressure, systolic 141 mm[Hg] Lilibeth jean [place] oxygen saturation, oximetry 96 % [facility] pulse rate 78 /min Yoko Gaston respiratory rate E&M 12 /min [facility] E&M 213 [lb_av] [facility] E&M 70 [in_i] [facility], cuff size regular Ying holley Gaston Body Mass Index (Ratio) 29.50 kg/m2 Shaka [...] tabareseldjose pulse rate 84 /min Norma Alexandre [facility] weight E&M 212 [lb_av] Norma Thade [facility] height E&M 70 [in_i] Norma Baldomero [facility] Body Mass Index (Ratio) 29.41 kg/m2 Shaka Carrillo MD blood pressure, diastolic 87 mm[Hg] St lissycassi RebolledoPacheco blood pressure, systolic 143 mm[Hg] Ousmane toledo [place] oxygen saturation, oximetry 97 % Beatriz Lohman pulse rate 71 /min Beatriz Calles n weight E&M 205 [lb_av] Beatriz Rebolledoma n respiratory rate E&M 16 /min Arben micah Pache[place] height E&M 70 [in_i] Beatriz Calles n blood pressure, cuff size large camacho [place] Body Mass Index (Ratio) 28.98 kg/m2 Shaka [...] Lua Body Mass Index (Ratio) 29.27 kg/m2 Shkaa Carrillo MD blood pressure, cuff size large Ke rri Gruenenfeldjose blood pressure, diastolic 60 mm[Hg] Ke rri Gruenenfeldjose blood pressure, systolic 122 mm[Hg] Adrianne Francis oxygen saturation, oximetry 98 % Norma Oneilstefaniejsoe respiratory rate E&M 16 /min Norma tabareselder [...] m[Hg] blood pressure, diastolic 80 mm[Hg] [facility], systolic 120 mm[Hg] Jose winn [place] oxygen saturation, oximetry 98 % respiratory rate E&M 16 /min Bakari [place] pulse rate 89 /min Bakari [place] weight E&M 192 [lb_av] [place] height E&M 70 [in_i] [place] Body Mass Index (Ratio) 27.55 kg/m2 Ramos Juarez blood pressure, diastolic 70 mm[Hg] Da bashir [place] blood pressure, systolic 120 mm[Hg] Dac ia [...] TAKE 1 TABLET BY MOUTH TWICE DAILY TaylorBenjamin [facility] Specialist NORCO 7.5-325 MG ORAL TABLET active [...] - Yimi Carrillo MD CHANTIX STARTING MONTH MOSNERRAT 0.5 MG X 11 & 1 MG [...] beatty drug use no Mae Ventimig ana RIVET [employer]LE PUNCHER alcohol use no Mae Ventimig ana RIVET HOLE PUNCHER passive cigarette sm elias exposure no Vanessa [...] Michoacano carranza [place] alcohol use, type occasionally [place] In gram smoking/tobacco cess ation, patient education and counseling yes Bakari Ottoam alcohol use yes [place] number of years as a smoker 31 a Donnie Juarez smoking history, tot al pack/day 1 Bakaridillon Ottoam cigarette use yes [place] smoking status Current every day smoker [...] Management Plan continue current therapy Mae Lares RIVET HOLE PUNCHER HRA, CV Assess/Plan, Angina (inactive) Management Plan [...] Payer name Policy type / Coverage type [employer] party ID [facility] COMPLETE CARE [id number] (PPO C-SNP) Commercial insurance company [id number] [facility] Medicaid 2 [id number] ADVANCE DIRECTIVES Name Date DISCUSSED - NO DECISION MADE TREATMENT PLAN Date Name Performer [id number],B, Yimi luke MD [id number],S, Yimi luke MD [id number],B, Yiim luke MD [id number],S, Yimi luke MD [id number],S, Yimi luke MD [id number],N,N eeds MRIs. ICD currently MRI incompatible. Will try and replace generator with medtronic device to restore MRI compatibility. Yimi Carrillo MD [id number],C, H is updated medication list for this problem includes: Repatha Sureclick 140 Mg/ml Pen Injector (Evolocumab) ..... 1 pen injector every two weeks [facility] [id number],C, T he following medications were removed from [...] ..... Take 1 tablet by mouth daily [facility] [id number],C,r ecent new mass in [place] with lymphadenopathy. Patient is hesistant to pursue biopsy and treatment. Patient functional and overall well at this time. Have referred for second opinion which patient agreeable to. He will f/u post biopsy or sooner if needed. [facility] [id number],C,B IVICD in place. compensated T he following [...] ..... Take 1 tablet by mouth daily [facility] [id number],CTaryn MD [id number],C, H is updated medication list for this [...] tablet by mouth daily Taryn Bolaños MD [id number],S,e cho 07/2022 EF 52% His updated medication [...] tablet by mouth daily Taryn Bolaños MD [id number],C, n ormal function Taryn Bolaños MD [id number],N, n ew onset afib s xs of [...] 1 tablet by mouth daily Wilfredo Sierra [id number],S, T he Patient was reencouraged to stop smoking. Wilfredo Mariela [id number],S,e cho 07/2022 EF 52% His updated medication list for this problem includes: Carvedilol 12.5 Mg Tablet (Carvedilol) ..... Take 1 tablet by mouth twice daily Lisinopril 10 Mg Tablet (Lisinopril) ..... Take 1 tablet by mouth daily Spironolactone 25 Mg Tablet (Spironolactone) ..... Take 1 tablet by mouth daily Wilfredo Mariela [id number],C, n ormal function Wilfredo Sierra [id number],S, Yimi luke MD [id number],S, Yimi luke MD [id number],S, Yimi luke MD [id number],S, Yimi Ramxiomy luke MD [id number],S, Yimi luke MD [id number],S, Yimi Ramxiomy luke MD [id number],S, Yimi Ramada marly MARINO [id number],S, Yimi Ramxiomy luke MD [id number],S, Yimi Ramada marly MARINO [id number],S, Yimi luke MD Cardiology Yimi Carrillo MD [...] he says is same as with previous [place]. P moriah has history of coronary atherosclerosis, [...] him from sleep. [facility] Cardiology:Reviewed cessation [place] sarah [facility] Cardiology: H is updated medication list for this problem includes: Repatha Sureclick 140 Mg/ml Pen Injector (Evolocumab) ..... Inject 1 pen injector subcutaneously once every two weeks [facility] Cardiology:Following [facility]cology [facility]AF burden 0% from recent device check [...] Carrillo MD Cardiology Yimi Carrillo MD Cardiology Yiim Carrillo MD Cardiology:Needs MRI s. ICD currently MRI incompatible. Will try and replace generator with medtronic device to restore MRI compatibility. Yimi Carrillo MD Cardiology: H is updated medication list for this problem includes: Repatha Sureclick 140 Mg/ml Pen Injector (Evolocumab) ..... 1 pen injector every two weeks [facility] Cardiology: T he following medications were [...] ..... Take 1 tablet by mouth daily [facility] Cardiology:recent ne w mass in [place] with lymphadenopathy. Patient is hesistant to pursue biopsy and treatment. Patient functional and overall well at this time. Have referred for second opinion which patient agreeable to. He will f/u post biopsy or sooner if needed. [facility] Cardiology:BIVICD in place. compensated T he [...] ..... [facility] Electrophysiology Taryn renee MD Electrophysiology: H [...] has been given to the patient. [email or web address] Yimi Carrillo MD Cardiology follow up Yimi [...] try Chantix to help him quit smoking. [facility] Cardiology:In-office device check today shows appropriate function. [facility] Cardiology:Pt noted reduced exercise capacity. He gets fatigued easily and SOB. He has a known 50-60% stenosis of the mid LAD and MACHINE TAILER RCA. Last year echo showed improvement of [...] Tablet (Lisinopril) ..... Take one tablet daily [facility] Cardiology:Followed by GI. Loli new [facility] Cardiology:Pt noted reduced exercise capacity. He gets fatigued easily and SOB. He has a known 50-60% stenosis of the mid LAD and MACHINE TAILER RCA. Last year echo showed improvement of [...] Tablet (Lisinopril) ..... Take one tablet daily [facility] Cardiology:Pt noted reduced exercise capacity. He gets fatigued easily and SOB. He has a known 50-60% stenosis of the mid LAD and MACHINE TAILER RCA. Last year echo showed improvement of EF. Will obtain f/u echo and CT coronary angiography. His updated medication list for this problem includes: Aspir-81 81 Mg Oral Tablet Delayed Release (Aspirin) ..... Take one tablet daily Carvedilol 12.5 Mg Oral Tablet (Carvedilol) ..... Take one tablet twice daily Lisinopril 10 Mg Oral Tablet (Lisinopril) ..... Take one tablet daily [facility] Cardiology:Pt noted reduced exercise capacity. He gets fatigued easily and SOB. He has a known 50-60% stenosis of the mid LAD and MACHINE TAILER RCA. Last year echo showed improvement of EF. Will obtain f/u echo and CT coronary angiography. Will try Corlanor 5mg BID. [facility] Cardiology:Pt noted reduced exercise capacity. He gets fatigued easily and SOB. He has a known 50-60% stenosis of the mid LAD and MACHINE TAILER RCA. Last year echo showed improvement of EF. Will obtain f/u echo and CT coronary angiography. Will try Corlanor 5mg BID. [facility] Cardiology New patie nt:He's advised to stop smoking. 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 Had cardiac cath at [place] and [facility]. He has a BiV Medtronic ICD. Gets [...] Tablet (Lisinopril) ..... 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 Had cardiac cath at [place] and [facility]. He has a BiV Medtronic ICD. Gets SOB with activity like walking in a large store. Will obtain an echo and device check. 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 Had cardiac cath at [place] and [facility]. He has a BiV Medtronic ICD. Gets [...] Tablet (Lisinopril) ..... 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 Had cardiac cath at [place] and [facility]. He has a BiV Medtronic ICD. Gets [...] Complete Echo Complete Echo EKG DLCO - 20036 FRC - 32319 FVC - 22452 HEMOGLOBIN A1c COMPREHENSIVE METABO LIC PANEL, W/EGFR [...] completed FVC / MVV with bronchodilator - 11384 Taryn Bolaños MD completed BLOOD COUNT HEMOGLOBIN Taryn valerio MD completed FRC - 93945 Taryn wolfe MD completed SpO2 w/o 6min walk/titration Taryn Bolaños MD completed SVC - 77745 Taryn wolfe MD completed DLCO - 18010 Taryn wolfe MD completed EKG Taryn wolfe [...] Soren Beach MD INTERROGATION REMOTE </90 D CUPBOARD BUILDER REVIEW completed AICD Interrogation, Remote (Prof) Soren [...]
--- OUTSIDE RECORDS SUMMARY | 2025-04-11 14:51 | XMS_ITS | Referral Summary ---
Author Organization [facility] [place] [address] Address [address] [place] [address] Care Team Providers Care Art Installer Name Role Phone Gordon Argueta MD Primary Care Provider Tashi Duran MD Unavailable [phone] Skyler Sun MD PhD Unavailable Lorena Coronado MD, Yimi Mayer Unavailable [phone] William Marte MD Unavailable Shira Nichole MD Unavailable Encounters Date Type Department Care Team Description 01/23/2025 10:45 AM STAVE SAW OPERATOR Clinical Support [facility] at [address] [address] Malignant neoplasm of upper lobe of left lung (HCC); Other fatigue 01/23/2025 1:00 PM STAVE SAW OPERATOR Office Visit [facility] On[facility] [address] [place] [address] [address] [place] [address] Skyler Sun MD PhD Malignant neoplasm of upper lobe of left lung (HCC) (Primary Dx); Other fatigue 01/23/2025 11:22 AM STAVE SAW OPERATOR - 01/23/2025 11:59 PM STAVE SAW OPERATOR Hospital Encounter [facility] Medical Office Building [address] [place] [id number] Malignant neoplasm of upper lobe of left [...] cyst. He underwent pulmonary function testing at [facility]. These results are still pending. [...] on file Legal Sex Male 8:49 AM STAVE SAW OPERATOR Gender Identity Not on file Sexual Orientation Not on file Last Filed Vital Signs Vital Sign Reading Time Taken Comments Blood Pressure 110/76 01/23/2025 1:14 PM STAVE SAW OPERATOR Pulse 86 01/23/2025 1:14 PM STAVE SAW OPERATOR Temperature 37 C (98.6 F) 01/23/2025 1:14 PM STAVE SAW OPERATOR Respiratory Rate 18 01/23/2025 1:14 PM STAVE SAW OPERATOR Oxygen Saturation 96% 01/23/2025 1:14 PM STAVE SAW OPERATOR Inhaled Oxygen Concentration - - Weight 91.9 kg (202 lb 9.6 oz) 01/23/2025 1:14 P M STAVE SAW OPERATOR Height 172.7 cm (5' 8 ) 01/23/2025 1:14 PM STAVE SAW OPERATOR Body Mass Index 30.81 01/23/2025 1:14 PM STAVE SAW OPERATOR Plan of Treatment Not on file Medical Devices Implanted Type Area Loss Prevention Auditor Device Identifier Shelf Expiration Date Model / Serial / Lot Ra Lead-09/30/20 16 Implanted:Qt y: 1 on 09/30/2016 by Yimi Carrillo Jr., MD Lead Right: Atria Medtronic Cardiac Rhythm Mgmt 5076-52 SURESCAN / [id number] / Rv Lead-09/30/20 16 Implanted:Qt y: 1 on 09/30/2016 by Yimi Carrillo Jr., MD Lead Right: Ventricle Medtronic Cardiac Rhythm Mgmt 6935M-62 / [id number] / Lv Lead- 016 Implanted:Qt y: 1 on 09/30/2016 by Yimi Carrillo Jr., MD Lead N/A: Coronary Sinus Medtronic Cardiac Rhythm Mgmt 4598-88 / [id number] / Medtronic Inc Cardiac [place] Hf 2 Chamber Df4 Inline Cnctr Is4 [id number] - [id number] - [id number] Implanted:Qt y: 1 on 01/26/2023 by Yimi Carrillo Jr., MD at [facility] Left: Chest Medtronic Inc [id number] 05/19/2024 [id number] / [id number] / [employer] Xcela Power Port 8fr [id number] - [id number] Implanted:Qt y: 1 on 02/11/2023 at [facility] [employer] 09/27/2027 [id number] / / [id number] Explanted Type Area Loss Prevention Auditor Device Identifier Shelf Expiration Date Model / Serial / Lot Biotronik Icd Generator Explanted:Qty: 1 on 01/26/2023 by Yimi Carrillo Jr., MD at [facility] Left: Chest Biotronik / [id number] / Procedures Procedure Name Priority Date/Time Associated Diagnosis Comments CT CHEST ABDOMEN W CONTRAST Schedule Routine, Read Routine (OP Routine) 01/23/2025 11:30 AM STAVE SAW OPERATOR Malignant neoplasm of upper lobe of left lung (HCC) THYROID FUNCTION CASCADE Routine 01/23/2025 11:11 AM STAVE SAW OPERATOR Malignant neoplasm of upper lobe of left lung (HCC) Other fatigue TOTAL TESTOSTERONE Routine 01/23/2025 11 :11 AM STAVE SAW OPERATOR Malignant neoplasm of upper lobe of left lung (HCC) Other fatigue EGFR Routine 01/23/2025 11:11 AM STAVE SAW OPERATOR Malignant neoplasm of upper lobe of left lung (HCC) DIFFERENTIAL AUTO Routine 01/23/2025 11: 11 AM STAVE SAW OPERATOR Malignant neoplasm of upper lobe of left lung (HCC) CBC WITH AUTO DIFFERENTIAL Routine 01/23/2025 11:11 AM STAVE SAW OPERATOR Malignant neoplasm of upper lobe of left lung (HCC) COMPREHENSIVE METABOLIC PANEL Routine 01/23/2025 11:11 AM STAVE SAW OPERATOR Malignant neoplasm of upper lobe of left lung (HCC) COLONOSCOPY Routine 02/28/2024 2:03 PM CDT from Last 3 Months or Most Recently Relevant to Health Maintenance Results * CT Chest Abdomen W Contrast (01/23/2025 11:30 AM STAVE SAW OPERATOR) Anatomical Region Laterality Modality Body N/A Computed Tomogra phy 01/26/2025 9:41 AM STAVE SAW OPERATOR Narrative 01/26/2025 10:01 AM STAVE SAW OPERATOR EXAM DESCRIPTION: CT CHEST ABDOMEN W CONTRAST [...] Dallas Aldana M.D. AG: LEONOR Report ID: [id number] Reading Location: [id number] Procedure Note Dallas Aldana MD - 01/26/2025 [...] Dallas Aldana M.D. AG: LEONOR Report ID: [id number] Reading Location: [id number] us Skyler Sun MD PhD IMG CT PROCEDURES Fin al Result * eGFR (01/23/2025 11:11 AM STAVE SAW OPERATOR) eGFR >90 >=60 mL/min/1. 73 m2 Comment: [...] was last reviewed 2021. Testing performed by: [facility], [address] [place] [address]., [address] Blood 01/23/2025 11:1 1 AM STAVE SAW OPERATOR 01/23/2025 11:13 AM STAVE SAW OPERATOR us Skyler Sun MD PhD LAB BLOOD ORDERABLES Final Result EMPERATRIZ [address] [facility] Department [place] [address] * Differential, auto (01/23/2025 11:11 AM STAVE SAW OPERATOR) Neutrophil abs 6.2 1.5 - 6.5 K/cumm Comment:Testing performed by : [address] [address] Imm gran abs 0.0 0.0 - 0.1 K/cumm EMPERATRIZ Comment:Testing performed by : [address] [address] Lymphocyte abs 1.4 0.8 - 3.3 K/cumm EMPERATRIZ Comment:Testing performed by : [address] [address] Monocyte abs 0.6 0.2 - 0.8 K/cumm EMPERATRIZ Comment:Testing performed by : [address] [address] Eosinophil abs 0.3 0.0 - 0.5 K/cumm EMPERATRIZ Comment:Testing performed by : [address] [address] Basophil abs 0.1 0.0 - 0.1 K/cumm EMPERATRIZ Comment:Testing performed by : [address] [address] Neutrophil pct 72.7 % EMPERATRIZ Comment: Interpretive Data Percent cell count reference ranges are not reported, since discordance with absolute values may lead to misinterpretation of CBC data. Current Interpretive Data was last revised on 2018. Testing performed by: [address] [address] Imm gran pct 0.4 % CERNER Comment: Interpretive Data Percent cell count reference ranges are not reported, since discordance with absolute values may lead to misinterpretation of CBC data. Current Interpretive Data was last revised on 2018. Testing performed by: [address] [address] Lymphocyte pct 15.9 % CERNER Comment: Interpretive Data Percent cell count reference ranges are not reported, since discordance with absolute values may lead to misinterpretation of CBC data. Current Interpretive Data was last revised on 2018. Testing performed by: [address] [address] Monocyte pct 6.5 % [facility] Comment: Interpretive Data Percent cell count reference ranges are not reported, since discordance with absolute values may lead to misinterpretation of CBC data. Current Interpretive Data was last revised on 2018. Testing performed by: [address] [address] Eosinophil pct 3.9 % [facility] Comment: Interpretive Data Percent cell count reference ranges are not reported, since discordance with absolute values may lead to misinterpretation of CBC data. Current Interpretive Data was last revised on 2018. Testing performed by: [address] [address] Basophil pct 0.6 % [facility] Comment: Interpretive Data Percent cell count reference ranges are not reported, since discordance with absolute values may lead to misinterpretation of CBC data. Current Interpretive Data was last revised on 2018. Testing performed by: [address] [address] Blood 01/23/2025 11:1 1 AM STAVE SAW OPERATOR 01/23/2025 11:13 AM STAVE SAW OPERATOR us Skyler Sun MD PhD LAB BLOOD ORDERABLES Final Result EMPERATRIZ [address] [facility] [place] [address] * Thyroid Function [place] (01/23/2025 11:11 AM STAVE SAW OPERATOR) [facility] TSH 1.23 0.30 - 4.20 mcIUnit/mL Comment:Testing performed by : [address] [address] Blood 01/23/2025 11:1 1 AM STAVE SAW OPERATOR 01/23/2025 4:19 PM STAVE SAW OPERATOR us Skyler Sun MD PhD LAB BLOOD ORDERABLES Final Result Performing Organization Address [facility] [[email or web address]] Co de Phone Number EMPERATRIZ [address] [facility] [place] [address] * CBC with auto differential (01/23/2025 11:11 AM STAVE SAW OPERATOR) [facility] WBC 8.5 3.8 - 9.9 K/cumm Comment:Testing performed by : [address] [address] Hgb 14.9 13.0 - 17.5 g/dL EMPERATRIZ SCOTT Comment:Testing performed by : [address] [address] Hct 42.9 38.9 - 50.3 % EMPERATRIZ SCOTT Comment:Testing performed by : [address] [address] Plt 199 150 - 400 K/cumm EMPERATRIZ SCOTT Comment:Testing performed by : [address] [address] MPV 10.0 9.1 - 12.3 fL EMPERATRIZ SCOTT Comment:Testing performed by : [address] [address] RBC 4.62 4.30 - 5.80 M/cumm EMPERATRIZ SCOTT Comment:Testing performed by : [address] [address] MCV 92.9 81.3 - 96.4 fL EMPERATRIZ SCOTT Comment:Testing performed by : [address] [address] MCH 32.3 27.1 - 33.3 pg EMPERATRIZ SCOTT Comment:Testing performed by : [address] [address] MCHC 34.7 32.3 - 35.7 g/dL EMPERATRIZ SCOTT Comment:Testing performed by : [address], [address] RDW CV 13.1 11.1 - 14.9 % EMPERATRIZ SCOTT Comment:Testing performed by : [address], [address] RDW SD 44.6 35.7 - 48.1 fL EMPERATRIZ SCOTT Comment:Testing performed by : [address], [address] NRBC abs 0.00 0.00 - 0.01 K/cumm EMPERATRIZ SCOTT Comment:Testing performed by : [address], [address] Blood 01/23/2025 11:1 1 AM STAVE SAW OPERATOR 01/23/2025 11:13 AM STAVE SAW OPERATOR us Skyler Sun MD PhD LAB BLOOD ORDERABLES Final Result Performing Organization Address City/[facility] [[email or web address]] Co de Phone Number [address] [place] [address] * Total testosterone (01/23/2025 11:11 AM STAVE SAW OPERATOR) Pathologist [facility] Testosterone 729.00 193.00 - 740.00 ng/dL Blood 01/23/2025 11:1 1 AM STAVE SAW OPERATOR 01/23/2025 5:07 PM STAVE SAW OPERATOR Skyler Sun MD PhD LAB BLOOD ORDERABLES Final Result Performing Organization Address [facility] [[email or web address]] Co de Phone Number [address] [address] * (ABNORMAL) Comprehensive metabolic panel (01/23/2025 11:11 AM STAVE SAW OPERATOR) Sodium 136 135 - 145 mmol/L Comment:Testing performed by : [facility], [address] [place] [address]., [address] Potassium, pl 4.4 3.3 - 4.9 mmol/L EMPERATRIZ Comment:Testing performed by : [address], [place]., [address] Chloride 100 97 - 110 mmol/L EMPERATRIZ Comment:Testing performed by : [address], [place]., [address] CO2 25 22 - 32 mmol/L EMPERATRIZ Comment:Testing performed by : [address], [place]., [address] Anion gap 11 2 - 15 mmol/L EMPERATRIZ Comment:Testing performed by : [address], [place]., [address] BUN 13 6 - 25 mg/dL EMPERATRIZ Comment:Testing performed by : [address], [place]., [address] Creatinine 0.60(L) 0.80 - 1.30 mg/dL EMPERATRIZ Comment:Testing performed by : [address], [place]., [address] Glucose 110 70 - 199 mg/dL EMPERATRIZ [...] was last revised 2022. Testing performed by: [address] [address] Calcium 9.5 8.5 - 10.3 mg/dL EMPERATRIZ Comment:Testing performed by : [address], [place]., [address] Bilirubin, total 0.3 0.1 - 1.2 mg/dL EMPERATRIZ Comment:Testing performed by : [address] [address] Protein, pl 6.8 6.5 - 8.5 g/dL EMPERATRIZ SCOTT Comment:Testing performed by : [address] [address] Albumin 4.1 3.5 - 5.0 g/dL EMPERATRIZ SCOTT Comment:Testing performed by : [address] [address] Alk phos 77 40 - 130 Units/L EMPERATRIZ Comment:Testing performed by : [address] [address] ALT 20 7 - 55 Units/L EMPERATRIZ Comment:Testing performed by : [address] [address] AST 15 10 - 50 Units/L EMPERATRIZ Comment:Testing performed by : [address] [address] Blood 01/23/2025 11:1 1 AM STAVE SAW OPERATOR 01/23/2025 11:13 AM STAVE SAW OPERATOR Skyler Sun MD PhD LAB BLOOD ORDERABLES Final Result EMPERATRIZ [address] [facility] Department [place] [address] * Colonoscopy (02/28/2024 2:03 PM CDT) Anatomical Region Laterality Modality Other Historical Provider ENDOSCOPY PROCEDURES Elissa l Result from Last 3 Months or Most Recently Relevant to Health [place] [id number] [facility] MEDICARE ADVANTAGE IDPA IDPA [employer] MEDICARE ADVANTAGE IDPA [facility] MEDICARE ADVANTAGE Advance Directives For more information, please contact: [phone] * Full Code (Latest Code Status on File) Date Activated Date Inactivated Comments 02/11/2023 9:06 AM 02/12/2023 4:38 AM Care Teams Art Installer Relationship Specialty Start Date End Date Gordon Argueta MD PCP - General 01/19/13 Tashi Duran MD Consulting Physician Pulmonary Disease 12/15/22 Skyler Sun MD PhD [address] [facility], [facility] [address] [place] [address] Medical Oncologist/Corner Brace Block Machine Operator Medical Oncology 01/28/23 Yimi Carrillo Jr., MD [address] [place] [address] Toxicology Supervisor Cardiovascular Disease 01/28/[address] [place] [address] [facility] [address] [place] [address] Referring Physician Pulmonary Disease 01/28/23 Shira Nichole MD [address] [place] [address] Radiation Oncologist Radiation Oncology 11/14/24
--- OUTSIDE RECORDS SUMMARY | 2025-04-11 14:51 | XMS_ITS | Clinical Summary ---
Author Organization [facility] [place] [address] Address [address] [place] [address] Care Team Providers Care Commercial Crabber Name Role Phone Gordon Argueta MD Primary Care Provider Tashi Duran MD Unavailable [phone] Skyler Sun MD PhD Unavailable Lorena Coronado MD, Yimi PChris Unavailable William Marte MD Unavailable Shira Nichole MD Unavailable [phone] Allergies No known active allergies Medications ALPRAZolam [...] cyst. He underwent pulmonary function testing at [facility]. These results are still pending. [...] Department Care Team Description 01/23/2025 1:00 PM COSTUMED CHARACTER Office Visit [facility] [address] [place] [address] [place] [id number] Skyler Sun MD PhD Malignant neoplasm of upper lobe of left lung (HCC) (Primary Dx); Other fatigue 01/23/2025 11:22 AM COSTUMED CHARACTER - 01/23/2025 11:59 PM COSTUMED CHARACTER Hospital Encounter [facility] Medical Office Building [address] [address] Malignant neoplasm of upper lobe of left lung (HCC) Discharge Disposition: Discharge to home or self care 01/23/2025 10:45 AM COSTUMED CHARACTER Clinical Support [facility] at [address] [address] Malignant neoplasm of upper lobe of left [...] on file Legal Sex Male 8:49 AM COSTUMED CHARACTER Gender Identity Not on file Sexual Orientation Not on file Obstetrics History Last Filed Vital Signs Vital Sign Reading Time Taken Comments Blood Pressure 110/76 01/23/2025 1:14 PM COSTUMED CHARACTER Pulse 86 01/23/2025 1:14 PM COSTUMED CHARACTER Temperature 37 C (98.6 F) 01/23/2025 1:14 PM COSTUMED CHARACTER Respiratory Rate 18 01/23/2025 1:14 PM COSTUMED CHARACTER Oxygen Saturation 96% 01/23/2025 1:14 PM COSTUMED CHARACTER Inhaled Oxygen Concentration - - Weight 91.9 kg (202 lb 9.6 oz) 01/23/2025 1:14 P M COSTUMED CHARACTER Height 172.7 cm (5' 8 ) 01/23/2025 1:14 PM COSTUMED CHARACTER Body Mass Index 30.81 01/23/2025 1:14 PM COSTUMED CHARACTER Plan of Treatment Health Maintenance Due Date [...] Discontinued 06/2024 Medical Devices Implanted Type Area Rubber Ball Finisher Device Identifier Shelf Expiration Date Model / Serial / Lot Ra Lead-09/30/20 16 Implanted:Qt y: 1 on 09/30/2016 by Yimi Carrillo Jr., MD Lead Right: Atria Medtronic Cardiac Rhythm Mgmt 5076-52 SURESCAN / [id number] / Rv Lead-09/30/20 16 Implanted:Qt y: 1 on 09/30/2016 by Yimi Carrillo Jr., MD Lead Right: Ventricle Medtronic Cardiac Rhythm Mgmt 6935M-62 / [id number] / Lv Lead- 016 Implanted:Qt y: 1 on 09/30/2016 by Yimi Carrillo Jr., MD Lead N/A: Coronary Sinus Medtronic Cardiac Rhythm Mgmt 4598-88 / [id number] / Medtronic Inc Cardiac [place] Hf 2 Chamber Df4 Inline Cnctr Is4 [id number] - [id number] - [id number] Implanted:Qt y: 1 on 01/26/2023 by Yimi Carrillo Jr., MD at [facility] Left: Chest Med[employer]onic Inc [id number] 05/19/2024 [id number] Q / [id number] / [employer] Xcela Power Port 8fr [id number] - [id number] Implanted:Qt y: 1 on 02/11/2023 at [facility] [employer] 09/27/2027 [id number] / / [id number] Explanted Type Area Rubber Ball Finisher Device Identifier Shelf Expiration Date Model / Serial / Lot Biotronik Icd Generator Explanted:Qty: 1 on 01/26/2023 by Yimi Carrillo Jr., MD at [facility] Left: Chest [employer]ik / [id number] / Procedures Procedure Name Priority Date/Time Associated Diagnosis Comments CT CHEST ABDOMEN W CONTRAST Schedule Routine, Read Routine (OP Routine) 01/23/2025 11:30 AM COSTUMED CHARACTER Malignant neoplasm of upper lobe of left lung (HCC) THYROID FUNCTION CASCADE Routine 01/23/2025 11:11 AM COSTUMED CHARACTER Malignant neoplasm of upper lobe of left lung (HCC) Other fatigue TOTAL TESTOSTERONE Routine 01/23/2025 11 :11 AM COSTUMED CHARACTER Malignant neoplasm of upper lobe of left lung (HCC) Other fatigue EGFR Routine 01/23/2025 11:11 AM COSTUMED CHARACTER Malignant neoplasm of upper lobe of left lung (HCC) DIFFERENTIAL AUTO Routine 01/23/2025 11: 11 AM COSTUMED CHARACTER Malignant neoplasm of upper lobe of left lung (HCC) CBC WITH AUTO DIFFERENTIAL Routine 01/23/2025 11:11 AM COSTUMED CHARACTER Malignant neoplasm of upper lobe of left lung (HCC) COMPREHENSIVE METABOLIC PANEL Routine 01/23/2025 11:11 AM COSTUMED CHARACTER Malignant neoplasm of upper lobe of left lung (HCC) COLONOSCOPY Routine 02/28/2024 2:03 PM CDT from Last 3 Months or Most Recently Relevant to Health Maintenance Results * CT Chest Abdomen W Contrast (01/23/2025 11:30 AM COSTUMED CHARACTER) Anatomical Region Laterality Modality Body N/A Computed Tomogra phy 01/26/2025 9:41 AM COSTUMED CHARACTER Narrative 01/26/2025 10:01 AM COSTUMED CHARACTER EXAM DESCRIPTION: CT CHEST ABDOMEN W CONTRAST [...] Dallas Aldana M.D. AG: LEONOR Report ID: [id number] Reading Location: [id number] Procedure Note Dallas Aldana MD - 01/26/2025 [...] Dallas Aldana M.D. AG: LEONOR Report ID: [id number] Reading Location: [id number] us Skyler Sun MD PhD IMG CT PROCEDURES Fin al Result * eGFR (01/23/2025 11:11 AM COSTUMED CHARACTER) eGFR >90 >=60 mL/min/1. 73 m2 Comment: [...] was last reviewed 2021. Testing performed by: [address] [address] Blood 01/23/2025 11:1 1 AM COSTUMED CHARACTER 01/23/2025 11:13 AM COSTUMED CHARACTER us Skyler Sun MD PhD LAB BLOOD ORDERABLES Final Result [facility] [address] [facility] Department [place] [address] * Differential, auto (01/23/2025 11:11 AM COSTUMED CHARACTER) Neutrophil abs 6.2 1.5 - 6.5 K/cumm Comment:Testing performed by : [address] [address] Imm gran abs 0.0 0.0 - 0.1 K/cumm [facility] Comment:Testing performed by : [address] [address] Lymphocyte abs 1.4 0.8 - 3.3 K/cumm EMPERATRIZ Comment:Testing performed by : [address] [address] Monocyte abs 0.6 0.2 - 0.8 K/cumm EMPERATRIZ Comment:Testing performed by : [address] [address] Eosinophil abs 0.3 0.0 - 0.5 K/cumm EMPERATRIZ Comment:Testing performed by : [address] [address] Basophil abs 0.1 0.0 - 0.1 K/cumm EMPERATRIZ Comment:Testing performed by : [address] [address] Neutrophil pct 72.7 % [facility] Comment: Interpretive Data Percent cell count reference ranges are not reported, since discordance with absolute values may lead to misinterpretation of CBC data. Current Interpretive Data was last revised on 2018. Testing performed by: [address] [address] Imm gran pct 0.4 % [facility] Comment: Interpretive Data Percent cell count reference ranges are not reported, since discordance with absolute values may lead to misinterpretation of CBC data. Current Interpretive Data was last revised on 2018. Testing performed by: [address] [address] Lymphocyte pct 15.9 % [facility] Comment: Interpretive Data Percent cell count reference ranges are not reported, since discordance with absolute values may lead to misinterpretation of CBC data. Current Interpretive Data was last revised on 2018. Testing performed by: [address] [address] Monocyte pct 6.5 % [facility] Comment: Interpretive Data Percent cell count reference ranges are not reported, since discordance with absolute values may lead to misinterpretation of CBC data. Current Interpretive Data was last revised on 2018. Testing performed by: [address] [address] Eosinophil pct 3.9 % [facility] Comment: Interpretive Data Percent cell count reference ranges are not reported, since discordance with absolute values may lead to misinterpretation of CBC data. Current Interpretive Data was last revised on 2018. Testing performed by: [address] [address] Basophil pct 0.6 % [facility] Comment: Interpretive Data Percent cell count reference ranges are not reported, since discordance with absolute values may lead to misinterpretation of CBC data. Current Interpretive Data was last revised on 2018. Testing performed by: [address] [address] Blood 01/23/2025 11:1 1 AM COSTUMED CHARACTER 01/23/2025 11:13 AM COSTUMED CHARACTER us Skyler Sun MD PhD LAB BLOOD ORDERABLES Final Result [facility] [address] [facility] Department [place] [address] * Thyroid Function [place] (01/23/2025 11:11 AM COSTUMED CHARACTER) Pathologist [facility] TSH 1.23 0.30 - 4.20 mcIUnit/mL Comment:Testing performed by : [address] [address] Blood 01/23/2025 11:1 1 AM COSTUMED CHARACTER 01/23/2025 4:19 PM COSTUMED CHARACTER us Skyler Sun MD PhD LAB BLOOD ORDERABLES Final Result [facility] [address] [facility] Department [place] [address] * CBC with auto differential (01/23/2025 11:11 AM COSTUMED CHARACTER) [facility] WBC 8.5 3.8 - 9.9 K/cumm Comment:Testing performed by : [address] [address] Hgb 14.9 13.0 - 17.5 g/dL EMPERAT[facility]Z Comment:Testing performed by : [address] [address] Hct 42.9 38.9 - 50.3 % [facility] Comment:Testing performed by : [address] [address] Plt 199 150 - 400 K/cumm EMPERATRIZ Comment:Testing performed by : [address] [address] MPV 10.0 9.1 - 12.3 fL [facility]Z Comment:Testing performed by : [address] [address] RBC 4.62 4.30 - 5.80 M/cumm EMPERATRIZ Comment:Testing performed by : [address] [address] MCV 92.9 81.3 - 96.4 fL [facility] Comment:Testing performed by : [address] [address] MCH 32.3 27.1 - 33.3 pg EMP[facility]Z Comment:Testing performed by : [address] [address] MCHC 34.7 32.3 - 35.7 g/dL [facility] SCOTT Comment:Testing performed by : [address], [address] RDW CV 13.1 11.1 - 14.9 % [facility] SCOTT Comment:Testing performed by : [address], [address] RDW SD 44.6 35.7 - 48.1 fL EMPERAT[facility]Z SCOTT Comment:Testing performed by : [address], [address] NRBC abs 0.00 0.00 - 0.01 K/cumm EMPER[facility] SCOTT Comment:Testing performed by : [address], [address] Blood 01/23/2025 11:1 1 AM COSTUMED CHARACTER 01/23/2025 11:13 AM COSTUMED CHARACTER Skyler Sun MD PhD LAB BLOOD ORDERABLES Final Result Performing Organization Address [facility] Co de Phone Number [place] [id number] [facility] [place] [address] * Total testosterone (01/23/2025 11:11 AM COSTUMED CHARACTER) Pathologist [facility] Testosterone 729.00 193.00 - 740.00 ng/dL Blood 01/23/2025 11:1 1 AM COSTUMED CHARACTER 01/23/2025 5:07 PM COSTUMED CHARACTER Skyler Sun MD PhD LAB BLOOD ORDERABLES Final Result Performing Organization Address City/[facility] de Phone Number [address] [place] [address] * (ABNORMAL) Comprehensive metabolic panel (01/23/2025 11:11 AM COSTUMED CHARACTER) Sodium 136 135 - 145 mmol/L Comment:Testing performed by : [address], [address] Potassium, pl 4.4 3.3 - 4.9 mmol/L [facility] SCOTT Comment:Testing performed by : [address], [place]., [address] Chloride 100 97 - 110 mmol/L EMPERAT[facility]Z Comment:Testing performed by : [address], [place]., [address] CO2 25 22 - 32 mmol/L EMP[facility]Z Comment:Testing performed by : [address], [place]., [address] Anion gap 11 2 - 15 mmol/L EMP[facility]Z Comment:Testing performed by : [address], [place]., [address] BUN 13 6 - 25 mg/dL EMPERATRIZ Comment:Testing performed by : [address], [place]., [address] Creatinine 0.60(L) 0.80 - 1.30 mg/dL EMPERATRIZ Comment:Testing performed by : [address], [place]., [address] Glucose 110 70 - 199 mg/dL EMPERATRIZ [...] was last revised 2022. Testing performed by: [address] [address] Calcium 9.5 8.5 - 10.3 mg/dL EMPERATRIZ Comment:Testing performed by : [address] [address] Bilirubin, total 0.3 0.1 - 1.2 mg/dL EMP[facility]Z Comment:Testing performed by : [address], [place]., [address] Protein, pl 6.8 6.5 - 8.5 g/dL EMPERAT[facility]Z Comment:Testing performed by : [address], [facility] [place] [address] Albumin 4.1 3.5 - 5.0 g/dL [facility]MP[facility]Z SCOTT Comment:Testing performed by : [address] [address] Alk phos 77 40 - 130 Units/L EMPERAT[facility]Z SCOTT Comment:Testing performed by : [address], [address] ALT 20 7 - 55 Units/L EMPERATRIZ Comment:Testing performed by : [address], [address] AST 15 10 - 50 Units/L EMP[facility]ATRIZ Comment:Testing performed by : [address], [address] Blood 01/23/2025 11:1 1 AM COSTUMED CHARACTER 01/23/2025 11:13 AM COSTUMED CHARACTER Skyler Sun MD PhD LAB BLOOD ORDERABLES Final Result Performing Organization Address City/State/[facility] Co de Phone Number [facility] Department [place] [address] * Colonoscopy (02/28/2024 2:03 PM CDT) Anatomical Region Laterality Modality Other Historical Provider ENDOSCOPY PROCEDURES Elissa l Result from Last 3 Months or Most Recently Relevant to Health Maintenance Insurance [facility] [place] [address] [facility] Advance Directives For more information, please contact: [phone] * Full Code (Latest Code Status on File) Date Activated Date Inactivated Comments 02/11/2023 9:06 AM 02/12/2023 4:38 AM Care Teams Commercial Crabber Relationship Specialty Start Date End Date Gordon Argueta MD PCP - General 01/19/13 Tashi Duran MD Consulting Physician Pulmonary Disease 12/15/22 Skyler Sun MD PhD [address] [facility], [facility] [address] [place] [address] Medical Oncologist/Medical Microbiologist Medical Oncology 01/28/23 Yimi Carrillo Jr., MD [address] [place] [address] Call Center Associate Cardiovascular Disease 01/28/23 [place] [address] [facility] [address] [place] [address] Referring Physician Pulmonary Disease 01/28/23 Shira Nichole MD [address] [place] [address] Radiation Oncologist Radiation Oncology 11/14/24
--- OUTSIDE RECORDS SUMMARY | 2025-04-11 14:51 | XMS_ITS ---
Author Organization [facility] [place] [address] Address [address] [place] [address] Care Team Providers Care Plate Developer Name Role Phone Gordon Argueta MD Primary Care Provider Tashi Duran MD Unavailable [phone] Skyler Sun MD PhD Unavailable Lorena Coronado MD, Yimi P. Unavailable [phone] William Marte MD Unavailable [phone] Shira Nichole MD Unavailable [phone] Active Problems Patient Care Coordination No te [...] underwent pulmonary function testing at [facility]. These results are still pending. On [...] of 1 cycle started Oncology Supportive Care Therapy Plan Plan Name Start Date Discontinue Date Treatment [...] started Radiation Treatments * Course C1 LT 202202/23/2023 - 04/06/2023 Treatment Period Energy Fraction [...]
--- OUTSIDE RECORDS SUMMARY | 2025-04-11 14:51 | XMS_ITS | Clinical Summary ---
Author Organization [facility] Address [address], [facility] [address] [place] [address] Phone Care Team Providers Care Chief Growth Officer Name Role Phone Gordon Argueta MD Primary Care Provider [phone] Edward Najera MD Unavailable Social History Tobacco [...] MEDICARE C [employer] [place]ID [place] Care Teams Chief Growth Officer Relationship Specialty Start Date End Date Gordon Argueta MD [address] [place] [address] PCP - General Family Medicine 08/03/24 Edward Najera MD [address] [place] [address] [place] [address] Consulting Physician Oncology 08/03/24
--- OUTSIDE RECORDS SUMMARY | 2025-04-11 14:51 | XMS_ITS | Clinical Summary ---
Author Organization [facility] [employer] Address [address] [facility] [place] [address] Care Team Providers Care Maintenance Worker Name Role Phone Gordon Argueta MD Primary Care Provider [phone] Source Comments [facility] [employer],non-owned Affiliates and Associated Physician Practices is amultiple site organization consisting of ambulatory clinics and hospital sitesin [place], [place], [place] and [place]. This disclosure is being madepursuant to the Care Everywhere program and may not contain all information available regarding this patient. Last updated 18.[facility] [employer] Allergies No known active allergies Medications * [...] daily Active Oxymetazoline HCl (VICKS SINEX NA) [place] 1 spray into the nose 3 times daily Active atorvastatin (LIPITOR) 80 MG tablet Take 1 (one) tablet by mouth once daily 0 Active fluticasone propionate (FLONASE) 50 MCG/ACT nasal spray [place] 2 (two) sprays into each nostril once [...] this topic Medical Devices Implanted Type Area Migratory Worker Device Identifier Shelf Expiration Date Model / Serial / Lot Plug Srg 1.6in Groin Mfl Nabsb Prfx Implanted:Qty: 1 on 12/04/2019 by David Lugo MD at [facility] [employer] 12/19/2023 [id number] / [id number] Procedures Procedure Name Priority Date/Time Associated Diagnosis Comments BASIC METABOLIC PANEL (CALCIUM TOTAL) STAT 12/04/2019 6:04 AM ACID WASH OPERATOR Preop examination from Last 3 Months or Most Recently Relevant to Health Maintenance Results * (ABNORMAL) BASIC METABOLIC PANEL (CALCIUM TOTAL) (12/04/2019 6:04 AM ACID WASH OPERATOR) Glucose 111(H) 70 - 105 mg/dL 12/04/2019 6:41 AM ACID WASH OPERATOR [facility] Sodium 138 136 - 145 mmol/L 12/04/2019 6:41 AM ACID WASH OPERATOR [facility] Potassium 4.1 3.5 - 4.7 mmol/L 12/04/2019 6:41 AM ACID WASH OPERATOR [facility] Chloride 105 98 - 107 mmol/L 12/04/2019 6:41 AM ACID WASH OPERATOR [facility] CO2 22(L) 23 - 31 mmol/L 12/04/2019 6:41 AM ACID WASH OPERATOR [facility] Calcium 9.2 8.4 - 10.4 mg/dL 12/04/2019 6:41 AM ACID WASH OPERATOR [facility] Anion Gap 11 8 - 16 mmol/L 12/04/2019 6:41 AM ACID WASH OPERATOR [facility] BUN 14 8.4 - 25.7 mg/dL 12/04/2019 6:41 AM ACID WASH OPERATOR [facility] Creatinine 0.70(L) 0.72 - 1.25 mg/dL 12/04/2019 6:41 AM ACID WASH OPERATOR [facility] eGFR by MDRD >60 >60 mL/min/1.7 3m2 12/04/2019 6:41 AM ACID WASH OPERATOR [facility] eGFR by MDRD >60 >60 mL/min/1.7 3m2 12/04/2019 6:41 AM ACID WASH OPERATOR [facility] Blood BLOOD SPECIMEN / Unknown Venipuncture / Unknown 12/04/2019 6:04 AM ACID WASH OPERATOR 12/04/2019 6:17 AM ACID WASH OPERATOR Shira Duke DO LAB - CHEMISTRY ORDERABLES Elissa duque Result Performing Organization Address City/State/[facility] Co de Phone Number [facility] [address] [place] [address] from Last 3 Months or Most Recently Relevant to Health Maintenance Insurance [facility] [place] [address] [facility] [place] [address] [place] [facility] MANA[facility]ED MEDICARE ADV MEDICA[place] [facility] MANA[facility]ED MEDICARE ADV MED[place]ID [place] [facility] [place] [address] Care Teams Maintenance Worker Relationship Specialty Start Date End Date Gordon Argueta MD [address] [place] [address] PCP - General Family Medicine 11/09/19
--- OUTSIDE RECORDS SUMMARY | 2025-04-11 14:51 | XMS_ITS | Encounter Summary ---
Author Organization [facility] Address [address] [place] [address] Phone Care Team Providers Care Agricultural Extension Specialist Name Role Phone Gordon Argueta MD Primary Care Provider [phone] Margaret Greene MD Unavailable [phone] Tashi Duran MD Unavailable [phone] Skyler Sun MD PhD Unavailable [phone] Naveed Vance MD Unavailable [phone] Lorena Coronado MD, Yimi PChris Unavailable [phone] William Marte MD Unavailable [phone] Shira Nichole MD Unavailable [phone] Shira Nichole MD Unavailable [phone] Encounter Details Date Type Department Care Team (Late st Contact Info) Description 01/09/2017 Orders Only [facility] ProviderAngela MD [address] [place] [address] Social History Tobacco Use Types Packs/Day Years Used Date Smoking Tobacco: Never Assessed Sex and Gender Information Value Date Recorded Sex Assigned at Not on file Legal Sex Male 8:49 AM RIPPER OPERATOR Gender Identity Not on file Sexual [...] on filedocumented in this encounter Care Teams Agricultural Extension Specialist Relationship Specialty Start Date End Date Gordon Argueta MD PCP - General 01/19/13 Margaret Greene MD [address] [place] [address] Consulting Physician Pulmonary Disease 12/15/22 32 3 Tashi Duran MD [address] [place] [id number] Consulting Physician Pulmonary Disease 12/15/22 Skyler Sun MD PhD [address] [place] [address] MEDICAL ONCOLOGY, [address] [address] Medical Oncologist/Pharmaceutical Plant Operator Medical Oncology 01/28/23 Naveed Vance MD [address] [place] [address] MEDICAL ONCOLOGY, [address] [address] Consulting Physician Thoracic Surgery 01/28/23 02/06/23 Yimi Carrillo Jr., MD [address] [place] [address] Health And Social Care Teacher Cardiovascular Disease 01/28/23 [place] [address] [id number] [place] [address] Referring Physician Pulmonary Disease 01/28/23 [place] [address] [facility] [address] [place] [address] Radiation Oncologist Radiation Oncology 02/10/2311/13 Shira Nichole MD [address] [address] Radiation Oncologist Radiation Oncology 11/14/24 documented as of this encounter
--- OUTSIDE RECORDS SUMMARY | 2025-04-11 14:51 | XMS_ITS | Encounter Summary ---
Author Organization [facility] Address [address] [place] [address] Phone Care Team Providers Care Bone Density Technician Name Role Phone Gordon Argueta MD Primary Care Provider + [phone] Margaret Greene MD Unavailable [phone] Tashi Duran MD Unavailable +[phone] Skyler Sun MD PhD Unavailable +- [phone] Naveed Vance MD Unavailable +[phone] Lorena Coronado MD, Yimi Mayer Unavailable +[phone] William Marte MD Unavailable +[phone] Shira Nichole MD Unavailable +[phone] Shira Nichole MD Unavailable +[phone] Encounter Details Date Type Department Care Team (Late st Contact Info) Description 12/01/2022 Telephone [facility] Oncology [address] [facility] 7th [place] [address] Parvin Telles Social History Tobacco Use Types Packs/Day Years Used Date Smoking Tobacco: Every Day Cigarettes Alcohol Use Standard Drinks/Week Comments Yes 0 (1 standard drink = 0.6 oz pur e alcohol) Sex and Gender Information Value Date Recorded Sex Assigned at Not on file Legal Sex Male 8:49 AM MANAGER ATHLETICS Gender Identity Not on file Sexual Orientation Not on file documented as of this encounter Plan of Treatment Not on file documented as of this encounter Visit Diagnoses Not on filedocumented in this encounter Care Teams Bone Density Technician Relationship Specialty Start Date End Date Gordon Argueta MD PCP - General 01/19/13 Margaret Greene MD [address] [place] [address] [id number] Consulting Physician Pulmonary Disease 12/15/22 3 3 Tashi Duran MD [address] [place] [address] [id number] Consulting Physician Pulmonary Disease 12/15/22 Skyler Sun MD PhD [address] [place] [address] MEDICAL ONCOLOGY, [address] [id number] Medical Oncologist/Organizational Effectiveness Consultant Medical Oncology 01/28/23 Naveed Vance MD [address] [place] [address] MEDICAL ONCOLOGY, [address] [id number] Consulting Physician Thoracic Surgery 01/28/23 02/06/23 Yimi Carrillo Jr., MD [address] [place] [address] Superintendent Operating Cardiovascular Disease 01/28/23 [place] [address] [address] [facility] [address] [place] [address] Referring Physician Pulmonary Disease 01/28/23 [place] [address] [facility] [address] [place] [address] Radiation Oncologist Radiation Oncology 02/10/2311/13 Shira Nichole MD [address] [address] Radiation Oncologist Radiation Oncology 11/14/24 documented as of this encounter
--- OUTSIDE RECORDS SUMMARY | 2025-04-11 14:51 | XMS_ITS | Encounter Summary ---
Author Organization [facility] Address [address] [place] [address] Phone Care Team Providers Care Supercalender Operator Name Role Phone Gordon Argueta MD Primary Care Provider + [phone] Margaret Greene MD Unavailable [phone] Tashi Duran MD Unavailable [phone] Skyler Sun MD PhD Unavailable +- [phone] Naveed Vance MD Unavailable +[phone] Lorena Coronado MD, Yimi PChris Unavailable +[phone] William Marte MD Unavailable +[phone] Shira Nichole MD Unavailable +[phone] Shira Nichole MD Unavailable +[phone] Encounter Details Date Type Department Care Team (Late st Contact Info) Description 01/14/2017 Orders Only [facility] ProviderAngela MD [address] [place] [id number] Social History Tobacco Use Types Packs/Day Years Used Date Smoking Tobacco: Never Assessed Sex and Gender Information Value Date Recorded Sex Assigned at Not on file 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 Gender Identity Not on file Sexual Orientation [...] on filedocumented in this encounter Care Teams Supercalender Operator Relationship Specialty Start Date End Date Gordon Argueta MD PCP - General 01/19/13 Margaret Greene MD [address] [place] [address] Consulting Physician Pulmonary Disease 12/15/22 3 Tashi Durna MD [address] [place] [address] [id number] Consulting Physician Pulmonary Disease 12/15/22 Skyler Sun MD PhD [address] [place] [address] MEDICAL ONCOLOGY, [place] [address] Medical Oncologist/Equipment Records Supervisor Medical Oncology 01/28/23 Naveed Vance MD [address] [place] [address] MEDICAL ONCOLOGY, [place] [address] Consulting Physician Thoracic Surgery 01/28/23 02/06/23 Yimi Carrillo Jr., MD [address] [place] [address] Diesel Mechanic Helper Cardiovascular Disease 01/28/23 [place] [address] [id number] [place], [place] [id number] Referring Physician Pulmonary Disease 01/28/23 [place] [address] [id number] [place] [address] Radiation Oncologist Radiation Oncology 02/10/2311/13 Shira Nichole MD [address] [address] Radiation Oncologist Radiation Oncology 11/14/24 documented as of this encounter
== END 2025-04-11 14:41 | disposition home or self-care (01) ==
PROVIDERS: PCP Family Medicine
DX: R91.8 Other nonspecific abnormal finding of lung field (principal); C34.92 Malignant neoplasm of unspecified part of left bronchus or lung
CPT/HCPCS: 71046